=== PATIENT | male | born 1945 | race Caucasian/White ===

== ENCOUNTER 2020-05-13 10:30 | Outpatient (RCR) | payer MEDICARE, SELFPAY ==
--- NOTE | 2020-05-03 07:34 | HP.PTEVAL ---
Patient's Visit Information DURGA FARRELL is a 74 year old M referred to Physical Therapy by MANGO CAMILO with a diagnosis of Lumbar stenosis w/ L2-L5 fusion. Date of Evaluation: 04/21/20 Physical Therapist: Maxi Evans DPT - Visit Plan Frequency: 2x /Week Duration: 6 Weeks Plan: Core stability and strengthening initially in supine. Progression based on s/s into standing core stability exercises and LE strengthening, specifically HS and ankle stengthening. - Subjective Pt presents this date s/p L2-L5 fusion on 03/29/20. Hurt his back last July while shoveling snow. Initially hurt back in 2016 and received injections that helped until last July. Has been trying to walk around the house. Takes oxycodon to manage pain, half at bedtime and half in the morning. Pain seems to worsen the longer he is sitting. Has been walking w/ a walker and has tried a cane but feels that the walker is more stable. has been helping him into bed. Reports hving occasional numbness in L brown area. Is currently wearing an abdominal binder. - Pain low back Pain Intensity (Out of 10): 4 Pain Intensity Range: 1, 8 - Objective POSTURE: Forward trunk. WNL otherwise. PALPATION: WNL. ROM: Low back not tested d/t restrictions. WNL elsewhere. MMT: B knee flex 4-/5, B knee ext 5/5. B ankle 4-/5 in all planes. Hips not tested. Dec core strength/stability. NEURO: Sensation to light touch intact B. DTRs WNL. Myotomes intact. GAIT: Displays forward trunk during ambulation. Pt ambulated w/ walker. Trialed R cane and pt reported no pain or unsteadiness, displayed no notable deviations aside from forward trunk. - Goals Goal 1:: LTG: Pt to be I w/ HEP. Goal Time Frame: 4-6 Weeks Goal 2:: STG: Pt will display inc BLE strength by 1/2 grade. Goal Time Frame: 4-6 Weeks Goal 3:: LTG: Pt will display inc BLE strength by 1 grade. Goal Time Frame: 4-6 Weeks Goal 4:: STG: Pt will be able to safely ambulate community distance w/ R cane. Goal Time Frame: 2-4 Weeks Goal 5:: LTG: Pt will be able to safely ambulate community distance w/out AD. Goal Time Frame: 4-6 Weeks - Rehabilitation Potential Physical Therapy Diagnosis: S/s consistent w/ lumbar stenosis and L2-L5 fusion. Pt reports pain, displays decreased BLE strength, and decreased ability to safely ambulate w/out AD. PT intervention indicated to address stated deficits and increase BLE strength, inc ability to safely ambulate w/out AD, and facilitate a reduction in pain. Rehabilitation Potential: Good - Anticipated Interventions Patient/Client Instruction: Educate patient on: Condition, Plan of Care, Risk Factors, Benefits of Fitness Program For the Purpose of:: To improve safety, To improve self management, To prevent re-injury Therapeutic Exercise to Include: Strength training, Power training, Endurance training, Balance training, Body mechanics, Gait and locomotor training, Dynamic Lumbar Stabilization For the Purpose of:: To decrease pain, To improve muscle performance and motor function, To increase tolerance to activity/condition/position, To improve gait and locomotor functions, To improve endurance, To improve balance, To improve safety with gait Thank you for the opportunity to evaluate your patient. For Medicare and Medicare HMO plans, please review the plan of care and approve it. It will need to be FAXED BACK to us at [phone] for Medicare purposes. For Medicare only, by signing this I certify the plan of care. Please let me know if there are questions or concerns regarding this plan of care. Physician Signature: Date:
--- NOTE | 2020-05-14 09:28 | HP.PTDCSUM ---
It has been my pleasure to treat DURGA FARRELL referred by MANGO CAMILO, with the diagnosis of Lumbar stenosis w/ L2-L5 fusion for a total of 7 visit(s). Discharge Date: 05/13/20 Please see the following information for a summary of their discharge status. Subjective: Pt reports feeling good this date. Returns to doctor in mid-June. Has been walking around much more lately and states it has been going well. Pt. reports being 80% better overall. Pt. reports he is a little conserned about recent uptick in COVID. low back Pain Intensity (Out of 10): 0 % Improvement: 80 Objective/Function: MMT: BLE strength 5/5 throughout. Core strength- fair. Pain: Reports having no pain. Gait: Ambulating community distances w/ SPC. He is able to ambulateNo pain with walking. He is wearing his brace still, but is slowly weaning form it. Normal gait pattern with reciprocal pattern with stair negotiation. No N/T, no pain noted. Goal 1:: LTG: Pt to be I w/ HEP. Goal Progress: Goal Met Goal 2:: STG: Pt will display inc BLE strength by 1/2 grade. Goal Progress: Goal Met Goal 3:: LTG: Pt will display inc BLE strength by 1 grade. Goal Progress: Goal Met Goal 4:: STG: Pt will be able to safely ambulate community distance w/ R cane. Goal Progress: Goal Met Goal 5:: LTG: Pt will be able to safely ambulate community distance w/out AD. Goal Progress: Goal Met Plan: Pt to cont w/ exs at home d/t progression as patient is also nervous about increase in COVID cases. Discharge Comments: Pt progressed well w/ strength and is now reporting no pain w/ activities. States he does not have any issues w/ his HEP and is comfortable continuing his exercises at home due to the increase in COVID cases. If there are questions or concerns regarding this patient's physical therapy, please feel free to call me at [phone]. Thank you for the referral of this patient. Sincerely, Maxi Evans DPT
== END 2020-05-13 11:10 | disposition home or self-care (01) ==
LOC: PT 10:30
DX: M48.061 Spinal stenosis, lumbar region without neurogenic claudication (principal)
CPT/HCPCS: 97110; 97161; 97164

== ENCOUNTER 2020-08-23 17:06 | Outpatient (RCR) | payer MEDICARE, SELFPAY | END 2020-08-23 23:59 | LOC: IMMUN 17:06 | PROVIDERS: PCP Internal Medicine; Visit Provider Family Medicine | DX: Z23 Encounter for immunization (principal) | CPT/HCPCS: 0011A; 0012A ==

== ENCOUNTER 2021-04-29 14:32 | Inpatient (IN) | payer MEDICARE, SELFPAY ==
[2021-04-29 14:39] VITALS: BP 129/73; PULSE 86; RESP 20; TEMP 36.6; O2SAT 90
[2021-04-29 14:41] VITALS: BMI 22.8
--- NOTE | 2021-04-29 15:19 | HP.PCM_ITS ---
HPI - General General Date of Admission: 04/29/21 HPI Narrative DURGA FARRELL, is a 75 Male with below past medical history with followin03/14/2021 Positive covid19, fully vaccinated. 03/19/2021 Presented to [facility] with hypoxia, Pulsox 66% on RA, oxygen 6 liters per nasal cannula, pulsox improved to 85%. 03/19/2021 Admit to [facility] ICU for hypoxia. Pulsox 70's x 3 days, short of breath. Nonrebreather mask at 15 liters, Pulsox improved. CTA chest shows pulmonary embolism, on coumadin for DVT. INR > 8.0. Hold anticoagulation until INR improved, then heparin drip for pulmonary embolism. Decadron, Remdesivir, consult infectious disease for covid19 pneumonia. Trend troponin for elevated troponin. Sequential compression device for DVT prophylaxis. Completed Tocilizumab, remdesivir, decadron. 03/31/2021 Out of isolation. 04/12/2021 Transferred out of ICU. Feeling weak. IVC filter placed, on Eliquis for DVT/PE. Oxygen 8 liters per nasal cannula. 04/29/2021 Admit to TCU with debility, here for rehabilitation, strengthening, prior to discharge home with . [facility] Medical History (Updated 04/29/21 @ 15:[address] Oh Stewart MD) Acute respiratory failure with hypoxia Coronary artery disease Debility Deep vein thrombosis Elevated troponin Gastroesophageal reflux disease Hyperlipidemia Hypertension Lumbar spinal stenosis Peripheral arterial occlusive disease Pneumonia due to COVID-19 virus Pulmonary embolism Home Medications apixaban 5 mg PO BID 04/29/21 [History Last Taken Unknown] calcium carb-D3-mag ox-zinc ox [Freddie Mag Zinc Plus D3] 1 tab PO DAILY 04/29/21 [History Last Taken Unknown] ipratropium-albuterol 3 ml INHALATION TID 04/29/21 [History Last Taken Unknown] metoprolol tartrate 12.5 mg PO BID 04/29/21 [History Last Taken Unknown] nitroglycerin 0.4 mg SUBLINGUAL Q5M PRN 04/29/21 [History Last Taken Unknown] omeprazole 20 mg PO DAILY 04/29/21 [History Last Taken Unknown] polyethylene glycol 3350 [Miralax] 17 g PO BID 04/29/21 [History Last Taken Unknown] rosuvastatin 40 mg PO QHS 04/29/21 [History Last Taken Unknown] sennosides-docusate sodium 1 tab-cap PO DAILY 04/29/21 [History Last Taken Unknown] Surgical History (Updated 04/29/21 @ 16:[address] Oh Stewart MD) History of carotid endarterectomy History of lumbar fusion Hx of CABG S/P femoral-femoral bypass surgery S/P IVC filter [place] teeth extracted Social History (Updated 04/29/21 @ 15:[address] Oh Stewart MD) household members: spouse Smoking Status: Former smoker alcohol intake: current alcohol intake frequency: a few times a week substance use type: does not use ROS Constitutional Constitutional: Denies chills, fever(s) or weight gain ENT HEENT: Denies headache(s), nasal congestion or nasal discharge Cardiovascular Cardiovascular: Denies chest pain or palpitations Respiratory/Chest Respiratory/Chest: Denies cough, excessive phlegm production or shortness of breath with exertion Gastrointestinal Gastrointestinal: Denies abdominal pain, nausea or vomiting Genitourinary Genitourinary: Denies dysuria Musculoskeletal Musculoskeletal: Denies joint pain or joint swelling Integumentary Integumentary: Denies rash or wounds Neurologic Neurologic: Denies focal weakness, numbness or tingling Psychiatric Psychiatric: Denies anxiety, depression, homicidal ideation or suicidal ideation Vital Signs Vital Signs Vital Signs: 04/29/21 14:39 Temperature 97.9 F Temperature Source Temporal Pulse Rate 86 Pulse Rhythm Regular Pulse Strength Normal (2+) Respiratory Rate 20 H Respiratory Effort Normal Non-Labored Respiratory Depth Normal Respiratory Pattern Normal Blood Pressure 129/73 H Blood Pressure Mean 91 Blood Pressure Source Monitor Blood Pressure Position Supine Blood Pressure Location Right Arm Pulse Ox 90 Oxygen Delivery Method Nasal Cannula Oxygen Flow Rate (L/min) 5 Weight Weight: 72.15 kg Body Mass Index (BMI) 22.8 Assessment & Plan Assessment/Plan (1) Debility: (2) Acute respiratory failure with hypoxia: (3) Pneumonia due to COVID-19 virus: (4) Pulmonary embolism: (5) Elevated troponin: PLAN: 75 year old male with below past medical history hospitalized for acute respiratory failure secondary covid19 pneumonia, complicated by pulmonary embolism, supratherapeutic INR requiring IVC filter placement, admitted to TCU with debility, here for rehabilitation, strengthening, prior to discharge home with . * Debility - PT/OT. * Pain - Tylenol 1000mg q6h prn pain (1-10). * Bowel - Miralax 17gm bid, Senna/colace 1 tablet bid, Dulcolax 10mg daily prn. * Adult immunization - Administer prevnar 13, pneumovax 23, fluzone, covid19 vaccine as appropriate. * DVT prophylaxis - Not necessary, on Eliquis. * Calcium deficiency - Calcium D 1 tablet daily. * Shortness of breath - Duoneb 3ml nebulized tid. * Coronary Artery Disease - Metoprolol 12.5mg bid, NTG 0.4mg SL Q5m prn chest pain. * DVT/PE status post IVC filter - Eliquis 5mg twice daily. * GERD - Pantoprazole 20mg daily. * Hyperlipidemia - Rosuvastatin 40mg qhs.
[2021-04-29 16:20] VITALS: O2SAT 89
--- NOTE | 2021-04-29 17:08 | CASEMGMT ---
Social Work Met with patient for initial assessment. Discussed code status. Pt confirmed full code. MOLST form completed, communication to , placed in chart. Explained [employer] insurance with [employer] 05/02 and continued stay is not guaranteed. The goal is for pt to return home with at [facility]. Will discuss possible need for alternative DC plan at care plan meeting with - will determine what can physically assist with at home. SW to continue to follow. Grace Haynes, PRICER DIET THERAPIST
[2021-04-29] MEDS: APIXABAN 5 MG TABLET PO (23:13)
[2021-04-29] MEDS: Polyethylene Glycol 3350 17 GM PACKET PO (23:13)
[2021-04-29] MEDS: ROSUVASTATIN CALCIUM 40 MG TABLET PO (23:14)
[2021-04-29] MEDS: Senna/Docusate Sodium 1 Tablet PO (23:14)
[2021-04-29 23:17] VITALS: BP 121/70; PULSE 96
[2021-04-29] MEDS: Metoprolol Tartrate 25 MG Tablet 12.5 MG PO (23:17)
[2021-04-30 05:00] VITALS: BP 118/70; RESP 18; O2SAT 96
[2021-04-30] MEDS: Polyethylene Glycol 3350 17 GM PACKET PO ×2 (06:31→17:12)
[2021-04-30 06:32] VITALS: BP 118/70; PULSE 93
[2021-04-30] MEDS: Metoprolol Tartrate 25 MG Tablet 12.5 MG PO ×2 (06:32→17:12)
[2021-04-30] MEDS: APIXABAN 5 MG TABLET PO ×2 (06:32→17:12)
[2021-04-30] MEDS: Senna/Docusate Sodium 1 Tablet PO (06:33)
[2021-04-30] MEDS: Pantoprazole Sodium 20 MG Tablet PO (06:33)
[2021-04-30 06:47] VITALS: PULSE 70; RESP 20; O2SAT 93
[2021-04-30] MEDS: Ipratropium/Albuterol Sulfate 3 ML AMPUL.NEB INHALATION ×2 (06:47→12:30)
[2021-04-30] MEDS: Multivitamins,Ther W-Minerals Tablet 1 TABLET PO (09:33)
[2021-04-30] MEDS: Tuberculin,Purif.prot.deriv. 50 TU/ML Vial 0.1 ML ID (11:35)
[2021-04-30 12:30] VITALS: PULSE 105; RESP 19
[2021-04-30 14:58] VITALS: BP 111/69; PULSE 113; RESP 24; TEMP 36.9; O2SAT 93
[2021-04-30 17:12] VITALS: PULSE 110
[2021-04-30] MEDS: ROSUVASTATIN CALCIUM 40 MG TABLET PO (21:29)
[2021-05-01] VITALS (8 sets, daily range): BP systolic 102–112; BP diastolic 71–72; PULSE 86–101; RESP 17–24; TEMP 36.6–37.1; O2SAT 92–94
[2021-05-01 05:06] LABS: Absolute Lymphocyte Count 4.54 X10^3/uL (0.83-4.51); Absolute Neutrophil Count 7.4 X10^3/uL (2.0-7.7); Basophil# 0.05 X10^3/uL; Basophil% 0.3 % (0-1); Eosinophil# 1.08 X10^3/uL; Eosinophils% 7.5 % (0-5); Hematocrit 31.6 % (40-54); Hemoglobin 9.5 g/dL (13.0-16.5); Lymphocyte # 4.54 X10^3/ul (0.83-4.51); Lymphocyte % 31.7 % (19-41); Mean Corp Hgb Conc 30.1 g/dL (32-36); Mean Corpuscular Hgb 23.8 pg (27.0-32.0); Mean Platelet Vol. 9.7 fl (6.2-12.0); Monocyte# 1.26 X10^3/uL; Monocyte% 8.8 % (0-10); NRBC Flagged by Analyzer 0 % (0-5); Neutrophil # 7.36 X10^3/uL (2.7-7.7); Neutrophil % 51.4 % (47-70); POSITIVE MORPHOLOGY YES; Platelet Count 368 K/mm3 (150-450); RBC Distribution Width SD 62.8 fl (35.1-43.9); White Blood Count 14.3 K/mm3 (4.4-11.0)
[2021-05-01 05:13] LABS: Differential Indicated SCAN CRITERIA MET
[2021-05-01 05:21] LABS: Anion Gap 7 (5-15); BUN 12 mg/dL (7-18); BUN/Creat Ratio 16.9 RATIO (10-20); Calcium,Total 8.4 mg/dL (8.5-10.1); Chloride 100 mmol/L (98-107); Creatinine, Serum 0.71 mg/dL (0.70-1.30); EST Glomerular Filtration Rate 114 mL/min (>60); Est Glom Filt Rate - Afr Amer 138 mL/min (>60); Estimated Creatinine Clearance 63.13 ml/min; Glucose 99 mg/dL (74-106); Potassium 3.8 mmol/L (3.5-5.1); Sodium Level 136 mmol/L (136-145)
[2021-05-01 05:33] LABS: Polychromasia 1+
[2021-05-01 05:34] LABS: Macrocytosis 1+
[2021-05-01 05:41] LABS: Anisocytosis 3+; Microcytosis 2+; Schistocytes 1+
[2021-05-01] MEDS: Polyethylene Glycol 3350 17 GM PACKET PO ×2 (05:42→17:42)
[2021-05-01] MEDS: Metoprolol Tartrate 25 MG Tablet 12.5 MG PO ×2 (05:42→17:43)
[2021-05-01] MEDS: APIXABAN 5 MG TABLET PO ×2 (05:42→17:42)
[2021-05-01] MEDS: Senna/Docusate Sodium 1 Tablet PO ×2 (05:42→17:42)
[2021-05-01] MEDS: Pantoprazole Sodium 20 MG Tablet PO (05:42)
[2021-05-01] MEDS: Ipratropium/Albuterol Sulfate 3 ML AMPUL.NEB INHALATION ×3 (06:36→18:30)
[2021-05-01] MEDS: Multivitamins,Ther W-Minerals Tablet 1 TABLET PO (08:26)
[2021-05-01] MEDS: ROSUVASTATIN CALCIUM 40 MG TABLET PO (20:59)
[2021-05-02] VITALS (7 sets, daily range): BP systolic 108–125; BP diastolic 73–79; PULSE 76–99; RESP 16–28; TEMP 36.4–37; O2SAT 92–99
[2021-05-02] MEDS: Metoprolol Tartrate 25 MG Tablet 12.5 MG PO ×2 (06:05→16:30)
[2021-05-02] MEDS: APIXABAN 5 MG TABLET PO ×2 (06:05→16:29)
[2021-05-02] MEDS: Senna/Docusate Sodium 1 Tablet PO ×2 (06:05→16:33)
[2021-05-02] MEDS: Pantoprazole Sodium 20 MG Tablet PO (06:05)
[2021-05-02] MEDS: Polyethylene Glycol 3350 17 GM PACKET PO (06:05)
[2021-05-02] MEDS: Ipratropium/Albuterol Sulfate 3 ML AMPUL.NEB INHALATION ×3 (06:50→18:33)
[2021-05-02] MEDS: Multivitamins,Ther W-Minerals Tablet 1 TABLET PO (08:28)
--- NOTE | 2021-05-02 12:22 | PCM.PN.RX ---
Progress Note - Pharmacy Subjective: TCU Admission Objective: Allergies atorvastatin Adverse Reaction (Verified 04/29/21 16:40) Other Current Medications Generic Name Dose Route Start Last Admin Trade Name Freq PRN Reason Stop Dose Admin Acetaminophen 1,000 mg 04/29/21 15:43 Acetaminophen 500 Mg Tablet PO Q6H PRN PRN Pain Score 1-10 Albuterol/Ipratropium 3 ml 04/29/21 22:00 05/02/21 06:50 Ipratropium/Albuterol Sulfate 3 Ml Ampul.Neb INHALATION 3 ml TID.RT VIOLET Administration Apixaban 5 mg 04/29/21 18:00 05/02/21 06:05 Apixaban 5 Mg Tablet PO 5 mg BID VIOLET Administration Bisacodyl 10 mg 04/29/21 15:43 Bisacodyl 5 Mg Tablet PO DAILY PRN Constipation Calamine/Phenol 1 applic 05/02/21 18:00 Menthol/Lanolin/Calamine/Znox 113 Gm Tube TOPICAL BID [facility] Protocol Metoprolol Tartrate 12.5 mg 04/29/21 18:00 05/02/21 06:05 Metoprolol Tartrate 25 Mg Tablet PO 12.5 mg BID VIOLET Administration Multivitamins/Minerals 1 tablet 04/30/21 08:00 05/02/21 08:28 Multivitamins,Ther W-Minerals Tablet PO 1 tablet BREAKFAST VIOLET Administration Nitroglycerin 0.4 mg 04/29/21 16:48 Nitroglycerin (Inpatient Use) 0.4 Mg Tab.Subl SL Q5M PRN CARDIAC/CHEST PAIN Pantoprazole Sodium 20 mg 04/30/21 06:00 05/02/21 06:05 Pantoprazole Sodium 20 Mg Tablet PO 20 mg DAILY VIOLET Administration Polyethylene Glycol 17 gm 04/29/21 18:00 05/02/21 06:05 Polyethylene Glycol 3350 17 Gm Packet PO 17 gm BID VIOLET Administration Rosuvastatin Calcium 40 mg 04/29/21 22:00 05/01/21 20:59 Rosuvastatin Calcium 40 Mg Tablet PO 40 mg QHS VIOLET Administration Senna/Docusate Sodium 1 tablet 04/29/21 18:00 05/02/21 06:05 Senna/Docusate Sodium 1 Tablet PO 1 tablet BID VIOLET Administration Tuberculin PPD 0.1 ml 05/07/21 10:00 Tuberculin,Purif.Prot.Deriv. 50 Tu/Ml Vial ID 05/07/21 10:01 X1 ONE Problem List (This Medical Record has been edited. Action required.) Elevated troponin (Acute) Pulmonary embolism (Acute) Pneumonia due to COVID-19 virus (Acute) Acute respiratory failure with hypoxia (Acute) Debility (Acute) Vital Signs Temp Pulse Resp BP Pulse Ox 98.6 F 76 28 H 108/79 94 05/02/21 05:00 05/02/21 06:50 05/02/21 06:50 05/02/21 06:05 05/02/21 06:50 Oxygen Flow Rate (L/min) 6 Oxygen Delivery Method Nasal Cannula Weight: 72.15 kg Body Mass Index (BMI) 22.8 Sodium 136 mmol/L (136-145) 05/01/21 04:50 Potassium 3.8 mmol/L (3.5-5.1) 05/01/21 04:50 Chloride 100 mmol/L (98-107) 05/01/21 04:50 Carbon Dioxide 29.0 mmol/L (21.0-32.0) 05/01/21 04:50 Anion Gap 7 (5-15) 05/01/21 04:50 BUN 12 mg/dL (7-18) 05/01/21 04:50 Creatinine 0.71 mg/dL (0.70-1.30) 05/01/21 04:50 Est GFR (MDRD) Af Amer 138 mL/min (>60) 05/01/21 04:50 Est GFR (MDRD) Non-Af 114 mL/min (>60) 05/01/21 04:50 BUN/Creatinine Ratio 16.9 RATIO (10-20) 05/01/21 04:50 Glucose 99 mg/dL (74-106) 05/01/21 04:50 Assessment/Plan: 1. Pain: acetaminophen 1000mg PO Q6H PRN pain 1-10. Please continue to monitor for increased pain and PRN usage. 2. CAD: metoprolol tartrate 12.5mg PO BID and nitroglycerin 0.4mg SL Q5M PRN cardiac/chest pain. Please continue to monitor BP (last 108/79), HR (last 76) and for chest pain. 3. DVT/PE s/p IVC filter: apixaban 5mg PO BID. Please continue to monitor hemoglobin (last 9.5g/dL) and S/S of bleeding. 4. Shortness of breath: ipratropium/albuterol 3mL inhalation TID.RT. Please continue to monitor for shortness of breath. 5. GERD: pantoprazole 20mg PO daily. Please continue to monitor for S/S of GERD and diarrhea. *6. Hyperlipidemia: rosuvastatin 40mg PO QHS. Please consider ordering a lipid panel if clinically appropriate. Patient does not have one in the chart. Thanks. Please continue to monitor for muscle pain. 7. Overall nutrition: multivitamin with minerals 1T PO breakfast. Please continue to monitor. Psychotropic Medications: None Unnecessary Medications: None Bowel Regimen: Miralax 17gm PO BID, senna/docusate 1T PO BID and bisacodyl 10mg PO daily PRN constipation. Please continue to monitor for constipation and PRN usage. Date of Note:: 05/02/21
[2021-05-02] MEDS: Menthol/Lanolin/Calamine/Znox 113 GM Tube 1 APPLIC TOPICAL (16:28)
[2021-05-02] MEDS: ROSUVASTATIN CALCIUM 40 MG TABLET PO (21:41)
[2021-05-03] VITALS (8 sets, daily range): BP systolic 112–114; BP diastolic 72–75; PULSE 85–104; RESP 16–20; TEMP 36.5–36.7; O2SAT 91–96
[2021-05-03] MEDS: Menthol/Lanolin/Calamine/Znox 113 GM Tube 1 APPLIC TOPICAL ×2 (06:09→17:14)
[2021-05-03] MEDS: Metoprolol Tartrate 25 MG Tablet 12.5 MG PO ×2 (06:10→17:12)
[2021-05-03] MEDS: Pantoprazole Sodium 20 MG Tablet PO (06:10)
[2021-05-03] MEDS: APIXABAN 5 MG TABLET PO ×2 (06:10→17:13)
[2021-05-03] MEDS: Multivitamins,Ther W-Minerals Tablet 1 TABLET PO (08:49)
[2021-05-03] MEDS: Ipratropium/Albuterol Sulfate 3 ML AMPUL.NEB INHALATION ×3 (09:05→19:15)
[2021-05-03] MEDS: ROSUVASTATIN CALCIUM 40 MG TABLET PO (22:12)
[2021-05-04] VITALS (7 sets, daily range): BP systolic 102–106; BP diastolic 67; PULSE 80–94; RESP 18–24; TEMP 36.6; O2SAT 92–95
[2021-05-04] MEDS: Polyethylene Glycol 3350 17 GM PACKET PO (05:17)
[2021-05-04] MEDS: Menthol/Lanolin/Calamine/Znox 113 GM Tube 1 APPLIC TOPICAL ×2 (05:18→17:27)
[2021-05-04] MEDS: APIXABAN 5 MG TABLET PO ×2 (05:19→17:18)
[2021-05-04] MEDS: Senna/Docusate Sodium 1 Tablet PO ×2 (05:19→17:20)
[2021-05-04] MEDS: Pantoprazole Sodium 20 MG Tablet PO (05:19)
[2021-05-04] MEDS: Metoprolol Tartrate 25 MG Tablet 12.5 MG PO ×2 (05:19→17:18)
[2021-05-04] MEDS: Ipratropium/Albuterol Sulfate 3 ML AMPUL.NEB INHALATION ×2 (06:50→19:50)
[2021-05-04] MEDS: Multivitamins,Ther W-Minerals Tablet 1 TABLET PO (08:18)
--- NOTE | 2021-05-04 10:35 | CASEMGMT ---
Social Work IDT met with patient and for care plan meeting. Discussed patient's progress in therapy and nursing. Explained [employer] insurance with [employer]D 05/06 and continued stay is not guaranteed. The goal is for pt to return home with at [facility]. Pt is new on O2, BP drops, difficulty tolerating activity. Dr. ackerman. Broached topic of possibly needing alternative plan prior to DC home if insurance does not allow enough time for safe DC home. Encouraged for pt and to brainstorm alternative options - broached SNF topic and financial liability. Provided SW contact information to notify this worker in a few days of plan. Pt and noticed pt cognition not as clear. ST order placed. Will continue to follow. Grace Haynes, POWDER COMPOUNDER SHANK THREADER
[2021-05-04] MEDS: 0.9% Normal Saline 1,000 ML 75 ML IV (18:48)
[2021-05-04] MEDS: ROSUVASTATIN CALCIUM 40 MG TABLET PO (21:10)
[2021-05-05 04:50] VITALS: BP 102/60; PULSE 87
[2021-05-05] MEDS: Menthol/Lanolin/Calamine/Znox 113 GM Tube 1 APPLIC TOPICAL ×2 (04:51→17:12)
[2021-05-05] MEDS: Pantoprazole Sodium 20 MG Tablet PO (04:51)
[2021-05-05] MEDS: APIXABAN 5 MG TABLET PO ×2 (04:51→17:12)
[2021-05-05] MEDS: Senna/Docusate Sodium 1 Tablet PO ×2 (04:51→17:12)
[2021-05-05 07:10] VITALS: PULSE 93; RESP 20; O2SAT 95
[2021-05-05] MEDS: Ipratropium/Albuterol Sulfate 3 ML AMPUL.NEB INHALATION (07:10)
[2021-05-05] MEDS: 0.9% Normal Saline 1,000 ML 75 ML IV ×2 (08:05→22:47)
[2021-05-05 12:55] VITALS: PULSE 87; RESP 20; O2SAT 96
--- NOTE | 2021-05-05 14:16 | MDS.RN ---
Completed pain interview for MADAY 05/06/21.
--- NOTE | 2021-05-05 15:02 | CHAPLAIN ---
Type of Pastoral Visit _x__ Initial Visit ___ Follow-up Visit ___ On-call Visit ___ General Patient Visit ___ Spiritual Assessment ___ Family Conference ___ Bereavement ___ Rapid Response ___ Code Blue ___ Other (describe below) Pastoral Care Referral From _x__ Patient ___ Family ___ Nurse ___ Physician ___ Gusset Edger ___ Marketing Mgr ___ Other (describe below) Sacrament/Intervention _x__ Active listening ___ Anointing ___ Episcopalian ___ Bereavement ___ Communion _x__ Loraine exploration ___ _x__ Life review _x__ Prayer ___ Reconciliation ___ Sacrament of Sick _x__ Supportive presence ___ Wedding ___ Other (describe below) Pastoral Comments patient is a and 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
[2021-05-05 15:34] VITALS: BP 116/73; PULSE 87; RESP 20; TEMP 36.6; O2SAT 96
[2021-05-05] MEDS: ROSUVASTATIN CALCIUM 40 MG TABLET PO (19:43)
[2021-05-05 20:15] VITALS: PULSE 95; RESP 18
[2021-05-06 06:00] VITALS: BP 119/71; PULSE 85; TEMP 36.9
[2021-05-06] MEDS: APIXABAN 5 MG TABLET PO ×2 (06:03→16:34)
[2021-05-06] MEDS: Senna/Docusate Sodium 1 Tablet PO ×2 (06:03→16:34)
[2021-05-06] MEDS: Pantoprazole Sodium 20 MG Tablet PO (06:03)
[2021-05-06] MEDS: Menthol/Lanolin/Calamine/Znox 113 GM Tube 1 APPLIC TOPICAL ×2 (06:03→16:34)
[2021-05-06 07:47] VITALS: PULSE 80; RESP 18; O2SAT 98
[2021-05-06] MEDS: Ipratropium/Albuterol Sulfate 3 ML AMPUL.NEB INHALATION ×2 (07:47→18:37)
[2021-05-06] MEDS: 0.9% Normal Saline 1,000 ML 75 ML IV (12:57)
[2021-05-06 15:08] VITALS: BP 107/68; PULSE 90; RESP 20; TEMP 36.8; O2SAT 95
[2021-05-06 18:37] VITALS: PULSE 98; RESP 20
[2021-05-06 20:00] VITALS: PULSE 98; RESP 16; O2SAT 94
[2021-05-06] MEDS: ROSUVASTATIN CALCIUM 40 MG TABLET PO (20:02)
[2021-05-07] VITALS (7 sets, daily range): BP systolic 106–121; BP diastolic 68–71; PULSE 76–96; RESP 16–22; TEMP 36.7; O2SAT 94–97
[2021-05-07] MEDS: 0.9% Normal Saline 1,000 ML 75 ML IV ×2 (02:22→15:32)
[2021-05-07] MEDS: Pantoprazole Sodium 20 MG Tablet PO (05:59)
[2021-05-07] MEDS: Polyethylene Glycol 3350 17 GM PACKET PO (05:59)
[2021-05-07] MEDS: Menthol/Lanolin/Calamine/Znox 113 GM Tube 1 APPLIC TOPICAL ×2 (05:59→17:35)
[2021-05-07] MEDS: Senna/Docusate Sodium 1 Tablet PO ×2 (05:59→17:36)
[2021-05-07] MEDS: APIXABAN 5 MG TABLET PO ×2 (05:59→17:36)
[2021-05-07] MEDS: Ipratropium/Albuterol Sulfate 3 ML AMPUL.NEB INHALATION ×3 (07:00→19:20)
[2021-05-07] MEDS: Tuberculin,Purif.prot.deriv. 50 TU/ML Vial 0.1 ML ID (11:17)
[2021-05-07] MEDS: ROSUVASTATIN CALCIUM 40 MG TABLET PO (21:12)
[2021-05-08 04:20] LABS: Absolute Lymphocyte Count 3.83 X10^3/uL (0.83-4.51); Absolute Neutrophil Count 5.5 X10^3/uL (2.0-7.7); Basophil# 0.06 X10^3/uL; Basophil% 0.5 % (0-1); Eosinophil# 0.82 X10^3/uL; Eosinophils% 7.4 % (0-5); Hematocrit 26.1 % (40-54); Hemoglobin 7.7 g/dL (13.0-16.5); Lymphocyte # 3.83 X10^3/ul (0.83-4.51); Lymphocyte % 34.7 % (19-41); Mean Corp Hgb Conc 29.5 g/dL (32-36); Mean Corpuscular Hgb 23.5 pg (27.0-32.0); Mean Corpuscular Volume 79.6 fL (80-94); Mean Platelet Vol. 9.4 fl (6.2-12.0); Monocyte# 0.82 X10^3/uL; Monocyte% 7.4 % (0-10); NRBC Flagged by Analyzer 0 % (0-5); Neutrophil # 5.48 X10^3/uL (2.7-7.7); Neutrophil % 49.7 % (47-70); POSITIVE MORPHOLOGY YES; Platelet Count 274 K/mm3 (150-450); RBC Distribution Width CV 21.6 % (11.6-14.6); RBC Distribution Width SD 63.7 fl (35.1-43.9); Red Blood Count 3.28 M/mm3 (4.6-6.2)
[2021-05-08 04:22] LABS: Differential Indicated SCAN CRITERIA MET
[2021-05-08 04:32] LABS: Anion Gap 4 (5-15); BUN 11 mg/dL (7-18); BUN/Creat Ratio 21.7 RATIO (10-20); Calcium,Total 7.8 mg/dL (8.5-10.1); Chloride 111 mmol/L (98-107); Creatinine, Serum 0.51 mg/dL (0.70-1.30); EST Glomerular Filtration Rate 168 mL/min (>60); Est Glom Filt Rate - Afr Amer 204 mL/min (>60); Estimated Creatinine Clearance 63.13 ml/min; Glucose 99 mg/dL (74-106); Potassium 3.8 mmol/L (3.5-5.1); Sodium Level 141 mmol/L (136-145)
[2021-05-08] MEDS: Menthol/Lanolin/Calamine/Znox 113 GM Tube 1 APPLIC TOPICAL ×2 (04:58→16:57)
[2021-05-08] MEDS: 0.9% Normal Saline 1,000 ML 75 ML IV ×2 (04:58→18:20)
[2021-05-08] MEDS: Senna/Docusate Sodium 1 Tablet PO ×3 (04:59→16:56)
[2021-05-08] MEDS: Pantoprazole Sodium 20 MG Tablet PO (05:00)
[2021-05-08] MEDS: APIXABAN 5 MG TABLET PO ×2 (05:00→16:57)
[2021-05-08 05:06] VITALS: BP 122/69; PULSE 78; RESP 20; TEMP 35.8; O2SAT 98
[2021-05-08 05:09] LABS: Anisocytosis 1+; Differential Comment SCANNED; Microcytosis 1+; Schistocytes RARE
[2021-05-08] MEDS: Ipratropium/Albuterol Sulfate 3 ML AMPUL.NEB INHALATION ×3 (08:12→19:30)
--- NOTE | 2021-05-08 09:36 | NURSING ---
Addendum entered by Rosa Mendez 05/08/21 15:48: consent obtained Original Note: dr bobby aware of hgb, new order for blood tx 2 units and recheck h/h 05/10/21. transfuse blood 05/09/21. faxed labs and order to infusion center.
[2021-05-08 13:35] VITALS: PULSE 73; RESP 16; O2SAT 98
[2021-05-08 15:07] VITALS: BP 103/60; PULSE 96; RESP 18; TEMP 37; O2SAT 95
[2021-05-08 19:30] VITALS: PULSE 75; RESP 16; O2SAT 96
[2021-05-08] MEDS: ROSUVASTATIN CALCIUM 40 MG TABLET PO (22:44)
[2021-05-08] MEDS: Acetaminophen 500 MG Tablet 1000 MG PO (22:49)
[2021-05-09] MEDS: APIXABAN 5 MG TABLET PO ×2 (06:07→16:26)
[2021-05-09] MEDS: Pantoprazole Sodium 20 MG Tablet PO (06:07)
[2021-05-09] MEDS: Menthol/Lanolin/Calamine/Znox 113 GM Tube 1 APPLIC TOPICAL ×2 (06:08→16:26)
[2021-05-09 07:05] VITALS: PULSE 74; RESP 22; O2SAT 98
[2021-05-09] MEDS: Ipratropium/Albuterol Sulfate 3 ML AMPUL.NEB INHALATION ×2 (07:05→19:05)
--- NOTE | 2021-05-09 08:03 | NURSING ---
[facility] CALLED, OK TO SEND PT DOWN IN BED AFTER DONE EATING [id number]
[2021-05-09 15:19] VITALS: BP 134/72; PULSE 84; RESP 18; TEMP 37.2; O2SAT 18
[2021-05-09] MEDS: Senna/Docusate Sodium 1 Tablet PO (16:26)
[2021-05-09 19:06] VITALS: PULSE 79; RESP 18
[2021-05-09] MEDS: ROSUVASTATIN CALCIUM 40 MG TABLET PO (19:59)
[2021-05-09 20:00] VITALS: O2SAT 97
[2021-05-10 05:48] LABS: Hematocrit 34.8 % (40-54); Hemoglobin 10.7 g/dL (13.0-16.5)
[2021-05-10] MEDS: APIXABAN 5 MG TABLET PO ×2 (05:48→16:54)
[2021-05-10] MEDS: Pantoprazole Sodium 20 MG Tablet PO (05:48)
[2021-05-10] MEDS: Menthol/Lanolin/Calamine/Znox 113 GM Tube 1 APPLIC TOPICAL ×2 (05:48→16:54)
[2021-05-10] MEDS: Senna/Docusate Sodium 1 Tablet PO (05:48)
[2021-05-10 05:50] VITALS: BP 125/75; PULSE 78
[2021-05-10 14:51] VITALS: BP 121/73; PULSE 92; RESP 18; TEMP 36.6; O2SAT 96
[2021-05-10 19:50] VITALS: PULSE 83; RESP 16
[2021-05-10] MEDS: Ipratropium/Albuterol Sulfate 3 ML AMPUL.NEB INHALATION (19:50)
[2021-05-10 20:25] VITALS: O2SAT 95
[2021-05-10] MEDS: ROSUVASTATIN CALCIUM 40 MG TABLET PO (20:32)
[2021-05-11] MEDS: Acetaminophen 500 MG Tablet 1000 MG PO (00:14)
--- NOTE | 2021-05-11 03:46 | NURSING ---
Addendum entered by Celine Lucero 05/11/21 04:05: Resp here, breathing treatment given, pt states he feels better now. HOB remains elevated. Original Note: Pt called out, stating he feels like he's not getting enough oxygen, pox 95% on 5L. Noted that humidity bottle empty, new one placed and pt POX does drop to 89% while switching O2, but comes back up quickly. Lungs assessed, crackles throughout, pulled up in bed and HOB elevated, pt requesting aerosol, resp called to assess patient and administer, will continue to monitor.
[2021-05-11] MEDS: APIXABAN 5 MG TABLET PO ×2 (04:17→17:09)
[2021-05-11] MEDS: Pantoprazole Sodium 20 MG Tablet PO (04:17)
[2021-05-11] MEDS: Senna/Docusate Sodium 1 Tablet PO ×2 (04:17→17:09)
[2021-05-11] MEDS: Polyethylene Glycol 3350 17 GM PACKET PO (04:17)
[2021-05-11] MEDS: Menthol/Lanolin/Calamine/Znox 113 GM Tube 1 APPLIC TOPICAL ×2 (04:20→17:09)
[2021-05-11 04:21] VITALS: BP 113/79; PULSE 82
[2021-05-11 12:58] VITALS: PULSE 92; RESP 18; O2SAT 99
[2021-05-11] MEDS: Ipratropium/Albuterol Sulfate 3 ML AMPUL.NEB INHALATION ×2 (12:58→19:09)
[2021-05-11 16:22] VITALS: BP 113/75; PULSE 95; RESP 20; TEMP 36.5; O2SAT 93
[2021-05-11 19:09] VITALS: PULSE 94; RESP 20; O2SAT 93
[2021-05-11 20:00] VITALS: PULSE 100; RESP 18; O2SAT 95
[2021-05-11] MEDS: ROSUVASTATIN CALCIUM 40 MG TABLET PO (20:38)
[2021-05-12] MEDS: Pantoprazole Sodium 20 MG Tablet PO (05:56)
[2021-05-12] MEDS: APIXABAN 5 MG TABLET PO ×2 (05:56→16:32)
[2021-05-12] MEDS: Polyethylene Glycol 3350 17 GM PACKET PO (05:56)
[2021-05-12] MEDS: Senna/Docusate Sodium 1 Tablet PO ×2 (05:57→16:32)
[2021-05-12] MEDS: Menthol/Lanolin/Calamine/Znox 113 GM Tube 1 APPLIC TOPICAL ×2 (06:00→16:33)
[2021-05-12] MEDS: 0.9% Saline Lock 10 ML Syringe IV ×2 (06:02→13:11)
[2021-05-12 07:38] VITALS: PULSE 93; RESP 22; O2SAT 95
[2021-05-12] MEDS: Ipratropium/Albuterol Sulfate 3 ML AMPUL.NEB INHALATION ×2 (07:38→19:20)
--- NOTE | 2021-05-12 07:55 | MDS.RN ---
Information for the mds was obtained from review of the clinical record, interview of resident, staff, and direct observation of resident's care.
[2021-05-12 12:20] VITALS: O2SAT 88
[2021-05-12 15:53] VITALS: BP 121/73; PULSE 95; RESP 26; TEMP 37.2; O2SAT 93
[2021-05-12 19:20] VITALS: PULSE 91; RESP 22
[2021-05-12] MEDS: ROSUVASTATIN CALCIUM 40 MG TABLET PO (20:39)
[2021-05-13] MEDS: APIXABAN 5 MG TABLET PO ×2 (05:01→17:22)
[2021-05-13] MEDS: Menthol/Lanolin/Calamine/Znox 113 GM Tube 1 APPLIC TOPICAL ×2 (05:01→17:22)
[2021-05-13] MEDS: Pantoprazole Sodium 20 MG Tablet PO (05:01)
[2021-05-13] MEDS: Polyethylene Glycol 3350 17 GM PACKET PO (05:01)
[2021-05-13] MEDS: Senna/Docusate Sodium 1 Tablet PO ×2 (05:01→17:23)
[2021-05-13 07:20] VITALS: PULSE 90; RESP 18; O2SAT 94
[2021-05-13] MEDS: Ipratropium/Albuterol Sulfate 3 ML AMPUL.NEB INHALATION ×3 (07:20→19:09)
[2021-05-13 14:12] VITALS: BP 114/68; PULSE 94; RESP 18; TEMP 36.7; O2SAT 97
[2021-05-13 15:05] VITALS: O2SAT 94
[2021-05-13 19:09] VITALS: PULSE 99; RESP 24
[2021-05-13] MEDS: ROSUVASTATIN CALCIUM 40 MG TABLET PO (20:09)
[2021-05-13 22:00] VITALS: PULSE 86; RESP 12; O2SAT 96
[2021-05-14] MEDS: Senna/Docusate Sodium 1 Tablet PO ×2 (05:14→17:06)
[2021-05-14] MEDS: Polyethylene Glycol 3350 17 GM PACKET PO (05:14)
[2021-05-14] MEDS: APIXABAN 5 MG TABLET PO ×2 (05:14→17:06)
[2021-05-14] MEDS: Menthol/Lanolin/Calamine/Znox 113 GM Tube 1 APPLIC TOPICAL ×2 (05:14→17:06)
[2021-05-14] MEDS: Pantoprazole Sodium 20 MG Tablet PO (05:14)
[2021-05-14 07:00] VITALS: PULSE 84; RESP 18; O2SAT 92
[2021-05-14] MEDS: Ipratropium/Albuterol Sulfate 3 ML AMPUL.NEB INHALATION ×2 (07:00→18:46)
--- NOTE | 2021-05-14 07:01 | CPS ---
PATIENT RECIEVED AEROSOL TREATMENT WITH EPAP SET AT 5 MH20.
[2021-05-14 09:49] VITALS: O2SAT 99
[2021-05-14 12:19] VITALS: PULSE 79; RESP 16; O2SAT 98
[2021-05-14 14:43] VITALS: BP 138/79; PULSE 79; RESP 18; TEMP 36.6; O2SAT 98
[2021-05-14 15:00] VITALS: O2SAT 85
[2021-05-14 18:46] VITALS: PULSE 104; RESP 18; O2SAT 94
[2021-05-14] MEDS: ROSUVASTATIN CALCIUM 40 MG TABLET PO (20:34)
--- NOTE | 2021-05-15 00:15 | NURSING ---
Pt calls this nurse back concerns w/ O2 levels. SpO2 ranges between 95-97% on 6 lpm via nc. Skin pink and without dusky or cyanotic discoloration throughout conversation. Pt experiencing difficulty expressing thoughts completely. Suggested multiple times he speak w/ respiratory therapy to determine the most appropriate liter flow at rest and with activity.
[2021-05-15] MEDS: Acetaminophen 500 MG Tablet 1000 MG PO ×2 (00:43→23:05)
[2021-05-15 04:51] LABS: Absolute Lymphocyte Count 3.93 X10^3/uL (0.83-4.51); Absolute Neutrophil Count 4.6 X10^3/uL (2.0-7.7); Basophil# 0.04 X10^3/uL; Basophil% 0.4 % (0-1); Eosinophil# 0.63 X10^3/uL; Eosinophils% 6.2 % (0-5); Hematocrit 34.2 % (40-54); Hemoglobin 10.2 g/dL (13.0-16.5); Lymphocyte # 3.93 X10^3/ul (0.83-4.51); Lymphocyte % 38.8 % (19-41); Mean Corp Hgb Conc 29.8 g/dL (32-36); Mean Corpuscular Hgb 24.4 pg (27.0-32.0); Mean Corpuscular Volume 81.8 fL (80-94); Mean Platelet Vol. 10.1 fl (6.2-12.0); Monocyte# 0.87 X10^3/uL; Monocyte% 8.6 % (0-10); NRBC Flagged by Analyzer 0 % (0-5); Neutrophil # 4.64 X10^3/uL (2.7-7.7); Neutrophil % 45.8 % (47-70); POSITIVE MORPHOLOGY YES; Platelet Count 253 K/mm3 (150-450); RBC Distribution Width CV 21.9 % (11.6-14.6); Red Blood Count 4.18 M/mm3 (4.6-6.2); White Blood Count 10.1 K/mm3 (4.4-11.0)
[2021-05-15 05:05] LABS: Differential Indicated SCAN CRITERIA MET
[2021-05-15 05:17] LABS: Anion Gap 4 (5-15); BUN 14 mg/dL (7-18); BUN/Creat Ratio 23.5 RATIO (10-20); Calcium,Total 7.8 mg/dL (8.5-10.1); Chloride 106 mmol/L (98-107); EST Glomerular Filtration Rate 139 mL/min (>60); Est Glom Filt Rate - Afr Amer 169 mL/min (>60); Estimated Creatinine Clearance 63.88 ml/min; Glucose 90 mg/dL (74-106); Potassium 3.8 mmol/L (3.5-5.1); Sodium Level 140 mmol/L (136-145)
[2021-05-15 05:33] LABS: Bite Cell RARE; Ovalocyte 1+; Poikilocytosis 1+; Target Cells 1+; Tear Drop Cell RARE
[2021-05-15 05:34] LABS: Anisocytosis 2+
[2021-05-15] MEDS: APIXABAN 5 MG TABLET PO ×2 (06:03→16:51)
[2021-05-15] MEDS: Pantoprazole Sodium 20 MG Tablet PO (06:03)
[2021-05-15] MEDS: Polyethylene Glycol 3350 17 GM PACKET PO (06:04)
[2021-05-15] MEDS: Senna/Docusate Sodium 1 Tablet PO ×2 (06:04→16:51)
[2021-05-15] MEDS: Menthol/Lanolin/Calamine/Znox 113 GM Tube 1 APPLIC TOPICAL ×2 (06:06→16:51)
[2021-05-15 06:40] VITALS: PULSE 79; RESP 18; O2SAT 93
[2021-05-15] MEDS: Ipratropium/Albuterol Sulfate 3 ML AMPUL.NEB INHALATION ×3 (06:40→19:06)
[2021-05-15 13:33] VITALS: PULSE 81; RESP 22; O2SAT 99
[2021-05-15 15:51] VITALS: BP 112/70; PULSE 90; RESP 20; TEMP 37.1; O2SAT 97
[2021-05-15 19:07] VITALS: PULSE 84; RESP 18
[2021-05-15] MEDS: ROSUVASTATIN CALCIUM 40 MG TABLET PO (23:04)
[2021-05-16] MEDS: Senna/Docusate Sodium 1 Tablet PO ×2 (05:53→16:53)
[2021-05-16] MEDS: Menthol/Lanolin/Calamine/Znox 113 GM Tube 1 APPLIC TOPICAL ×2 (05:53→16:52)
[2021-05-16] MEDS: Polyethylene Glycol 3350 17 GM PACKET PO (05:53)
[2021-05-16] MEDS: APIXABAN 5 MG TABLET PO ×2 (05:54→16:53)
[2021-05-16] MEDS: Pantoprazole Sodium 20 MG Tablet PO (05:54)
[2021-05-16 07:20] VITALS: PULSE 85; RESP 18; O2SAT 99
[2021-05-16] MEDS: Ipratropium/Albuterol Sulfate 3 ML AMPUL.NEB INHALATION (07:20)
[2021-05-16] MEDS: Bisacodyl 5 MG Tablet 10 MG PO (12:14)
[2021-05-16 13:05] VITALS: PULSE 88; RESP 16; O2SAT 94
[2021-05-16 15:36] VITALS: BP 114/71; PULSE 88; RESP 18; TEMP 36.6; O2SAT 94
[2021-05-16 18:50] VITALS: PULSE 98; RESP 24
[2021-05-16] MEDS: ROSUVASTATIN CALCIUM 40 MG TABLET PO (21:07)
[2021-05-17] MEDS: Menthol/Lanolin/Calamine/Znox 113 GM Tube 1 APPLIC TOPICAL ×2 (06:12→16:32)
[2021-05-17] MEDS: APIXABAN 5 MG TABLET PO ×2 (06:14→16:32)
[2021-05-17] MEDS: Pantoprazole Sodium 20 MG Tablet PO (06:14)
[2021-05-17 06:19] VITALS: O2SAT 99
[2021-05-17] MEDS: Ipratropium/Albuterol Sulfate 3 ML AMPUL.NEB INHALATION ×3 (07:01→19:40)
[2021-05-17 07:05] VITALS: PULSE 88; RESP 24; O2SAT 95
[2021-05-17 14:00] VITALS: PULSE 93; RESP 18; O2SAT 93
--- NOTE | 2021-05-17 15:03 | CASEMGMT ---
Social Work Insurance issued LCD 05/19, DC 05/20. Spoke with pt. Pt agreeable to DC. Provided list of [facility] agencies with quality and resource data. Pt prefers [facility]. Referral made for PT/OT/SN. Pt requesting w/c and is new on O2 6LPM. [place] [facility] [place]. 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
[2021-05-17 15:56] VITALS: BP 114/70; PULSE 91; RESP 16; TEMP 36.8; O2SAT 95
[2021-05-17] MEDS: Bisacodyl 5 MG Tablet 10 MG PO (16:31)
[2021-05-17] MEDS: Senna/Docusate Sodium 1 Tablet PO (16:32)
--- NOTE | 2021-05-17 19:04 | DS.PCM_ITS ---
Providers Date of Admission: 04/29/21 Primary Care Physician: Dr. Itz Sevilla MD Reason For Visit: COVID Diagnosis Discharge Diagnosis (1) Debility: Status: Acute Code(s): R53.81 - Other malaise (2) Acute respiratory failure with hypoxia: Status: Acute Code(s): J96.01 - Acute respiratory failure with hypoxia (3) Pneumonia due to COVID-19 virus: Status: Acute Code(s): U07.1 - COVID-19; J12.82 - Pneumonia due to coronavirus disease 2019 (4) Pulmonary embolism: Status: Acute Code(s): I26.99 - Other pulmonary embolism without acute cor pulmonale (5) Elevated troponin: Status: Acute Code(s): R77.8 - Other specified abnormalities of plasma proteins Medications at Discharge Home Medications omeprazole 20 mg PO DAILY 04/29/21 rosuvastatin 40 mg PO QHS 04/29/21 apixaban 5 mg PO BID 30 Days #60 tab 05/17/21 apixaban [Eliquis] 5 mg PO BID 30 Days #60 tab 05/17/21 ipratropium-albuterol 3 ml INHALATION Q6H PRN 30 Days #360 ml 05/17/21 ipratropium-albuterol 3 ml INHALATION TID 30 Days #270 ml 05/17/21 nitroglycerin 0.4 mg SUBLINGUAL Q5M PRN 30 Days #30 tab 05/17/21 Hospital Course Operations None Procedures None Summary of Care Provided Minutes Spent on Discharge: 35 Hospital Course: 75 year old male with below past medical history hospitalized for acute respiratory failure secondary covid19 pneumonia, complicated by pulmonary embolism, supratherapeutic INR requiring IVC filter placement, a dmitted to TCU with debility, here for rehabilitation, strengthening, prior to discharge home with . Discharge home with 05/20/2021, [facility] PT/OT/SN, Wheelchair, Oxygen. Physical Exam Const alert and oriented x3 General Appearance: cooperative HEENT normocephalic Eyes PERRL and EOMs intact bilaterally Neck supple, no JVD and no carotid bruits Resp normal respiratory effort, normal air movement and clear to auscultation bilaterally Cardio regular rate and regular rhythm GI normal to inspection, nondistended, normoactive bowel sounds, non-tender and non-distended Extremity normal capillary refill General Extremity: Negative for edema Skin no rashes or lesions noted General Skin Exam: no breakdown Psych affect normal Appearance: appropriate Medical Records Data Medical Nutrition Assessment Dietitian: Malnutrition Criteria Met Start: 04/29/21 17:05 Freq: Status: Active Protocol: Document 04/29/21 17:05 GEOFFREY (Rec: 04/29/21 17:05 [facility] [id number]) Nutrition Malnutrition Evidence of Malnutrition Exists Yes Malnutrition (severe): Acute Illness/Injury Evidenced By Suboptimal Energy Intake ( Severe),Weight Loss (Severe), Physical Changes (Severe) Clinical Problem Acute Disease or Injury Related Malnutrition Etiology related to acute illness and inability to consume adequate nutrition to meet est nutritional needs Signs/Symptoms as evidenced by <50% po intake x >1 month and 16.3% wt loss x 6-8 wks as well as muscle/ fat loss in orbitals/temporal/ clavicle region as well as arms and legs. Status Active Problem Recommendation Dietitian Recommendations/Changes Will continue Regular diet, but will change to include small portions and ensure compact w/ meals per res request Weight / BMI Weight Weight: 78.642 kg Body Mass Index (BMI) 22.8 ABG / Lab / Microbiology Data Result Diagrams: 05/15/21 04:05 05/15/21 04:05 D/C Instructions Discharge Diet: No restrictions Discharge Activity: Return to Normal Activity, May Shower and Use Walker May resume sexual activity in: 6-8 weeks Weight Bearing Status: Weight bearing as tolerated Call your doctor if you observe: Fever of 101 or Higher, Inability to urinate, Inability to have a bowel movement, Shortness of breath, Dizziness, Fainting spells, Swelling in the ankles, Chest pain and Uncontrolled pain Additional Instructions: Discharge home with 05/20/2021, [facility] PT/OT/SN, Wheelchair, Oxygen. Please Follow Up With: Itz Payne MD (PCP) When: 1 week. Meaningful Use Info Meaningful Use Diagnoses (Choose all that apply): None applicable Discharge Plan Admission Admit Date/Time: 04/29/21 14:32 Primary Reason for Your Visit: Debility. Attending Provider: Oh Stewart Chi Primary Care Provider: Itz Sevilla Instructions Additional Instructions / Restrictions: Discharge home with 05/20/2021, [facility] PT/OT/SN, Wheelchair, Oxygen. Discharge Orders/Prescriptions Prescriptions: New Eliquis 5 mg tablet 5 mg PO BID 30 Days Qty: 60 RF: 0 ipratropium-albuterol 0.5 mg-3 mg(2.5 mg base)/3 mL solution for nebulization 3 ml inhalation Q6H PRN (Reason: shortness of breath) 30 Days Qty: 360 RF: 0 Continued omeprazole 20 mg Capsule,Delayed Release(Dr/Ec) 20 mg PO DAILY RF: 0 rosuvastatin 40 mg Tablet 40 mg PO QHS RF: 0 ipratropium-albuterol 0.5 mg-3 mg(2.5 mg base)/3 mL Solution For Nebulization 3 ml INHALATION TID 30 Days Qty: 270 RF: 0 nitroglycerin 0.4 mg Tablet, Sublingual 0.4 mg SUBLINGUAL Q5M PRN (Reason: Chest Pain) 30 Days Qty: 30 RF: 0 apixaban 5 mg Tablet 5 mg PO BID 30 Days Qty: 60 RF: 0 Discontinued polyethylene glycol 3350 [Miralax] 17 gram Powder In Packet 17 g PO BID RF: 0 sennosides-docusate sodium 8.6-50 mg Tablet 1 tab-cap PO DAILY RF: 0 metoprolol tartrate 25 mg Tablet 12.5 mg PO BID RF: 0 Freddie Mag Zinc Plus D3 333 mg-133 unit -133 mg-5 mg Tablet 1 tab PO DAILY RF: 0 Referrals / Follow Up: Itz Sevilla MD [Primary Care Provider] - Disposition Disposition (needs filled in before D/C Order can be placed): Home Health Service
[2021-05-17 19:40] VITALS: PULSE 91; RESP 18; O2SAT 94
[2021-05-17] MEDS: ROSUVASTATIN CALCIUM 40 MG TABLET PO (21:07)
[2021-05-17 23:00] VITALS: PULSE 87; RESP 12; O2SAT 96
[2021-05-18] MEDS: Menthol/Lanolin/Calamine/Znox 113 GM Tube 1 APPLIC TOPICAL ×2 (05:48→16:45)
[2021-05-18] MEDS: APIXABAN 5 MG TABLET PO ×2 (05:48→16:46)
[2021-05-18] MEDS: Senna/Docusate Sodium 1 Tablet PO (05:48)
[2021-05-18] MEDS: Pantoprazole Sodium 20 MG Tablet PO (05:48)
[2021-05-18] MEDS: Polyethylene Glycol 3350 17 GM PACKET PO (05:53)
[2021-05-18 07:30] VITALS: PULSE 89; RESP 16; O2SAT 92
[2021-05-18] MEDS: Ipratropium/Albuterol Sulfate 3 ML AMPUL.NEB INHALATION ×3 (07:30→19:18)
--- NOTE | 2021-05-18 08:33 | CASEMGMT ---
Social Work Spoke with pt's to ensure pt told her about DC. Explained appeal rights. is okay with pt discharging home - is happy with HHC services. Added [facility] and [facility] to the HHC order and [facility] Explained w/c and O2 will be delivered to the pt's room prior to DC. Confirmed with Jhonathan Del Rio tagged an O2 concentrator for pt to ensure he had one DCing home. appreciative. Grace Haynes, [employer]ER TRUCK DRIVER GASKET MAKER
--- NOTE | 2021-05-18 09:54 | NURSING ---
here, OT assisting pt with shower and teaching for DC home.
[2021-05-18 11:15] VITALS: PULSE 89; RESP 18; O2SAT 99
--- NOTE | 2021-05-18 11:17 | MDS.RN ---
Pain interview completed for MADAY 05/20/21.
[2021-05-18 14:05] VITALS: PULSE 91; RESP 18
[2021-05-18 14:58] VITALS: BP 116/62; PULSE 88; RESP 24; TEMP 36.8; O2SAT 92
--- NOTE | 2021-05-18 15:10 | CASEMGMT ---
Social Work BIMS and PHQ-9 completed for MDS assessment. Grace Haynes, COOK HELPER INDUSTRIAL HEALTH AND SAFETY PROFESSOR
[2021-05-18 19:19] VITALS: PULSE 90; RESP 18; O2SAT 92
[2021-05-18] MEDS: ROSUVASTATIN CALCIUM 40 MG TABLET PO (20:21)
[2021-05-19] MEDS: Polyethylene Glycol 3350 17 GM PACKET PO (04:34)
[2021-05-19 04:35] VITALS: BP 110/56; PULSE 78; O2SAT 96
[2021-05-19] MEDS: Senna/Docusate Sodium 1 Tablet PO ×2 (04:35→16:15)
[2021-05-19] MEDS: APIXABAN 5 MG TABLET PO ×2 (04:35→16:15)
[2021-05-19] MEDS: Pantoprazole Sodium 20 MG Tablet PO (04:35)
[2021-05-19] MEDS: Menthol/Lanolin/Calamine/Znox 113 GM Tube 1 APPLIC TOPICAL ×2 (04:36→16:16)
[2021-05-19 06:52] VITALS: PULSE 86; RESP 18; O2SAT 96
[2021-05-19] MEDS: Ipratropium/Albuterol Sulfate 3 ML AMPUL.NEB INHALATION ×3 (06:52→19:54)
[2021-05-19 12:50] VITALS: PULSE 86; RESP 16
[2021-05-19 13:23] VITALS: BP 119/71; PULSE 85; RESP 20; TEMP 36.8; O2SAT 92
[2021-05-19 19:50] VITALS: O2SAT 84
[2021-05-19 19:54] VITALS: PULSE 100; RESP 20; O2SAT 92
[2021-05-19] MEDS: ROSUVASTATIN CALCIUM 40 MG TABLET PO (20:06)
--- NOTE | 2021-05-19 20:12 | CPS ---
Had to go to ER after starting pt. on breathing tx. RN going to assist pt. with end of breathin tx.
--- NOTE | 2021-05-19 20:20 | NURSING ---
Pt had several questions about discharge tomorrow, informed pt that [employer] would deliver WC and O2 here before he could be discharged, questions answered and pt reassured that someone would go over all instructions with him before e left. Note left for AM nurse to call [employer] with time for delivery so he can let his know what time to pick him up. Pt voices appreciation.
[2021-05-20] MEDS: APIXABAN 5 MG TABLET PO (05:50)
[2021-05-20] MEDS: Pantoprazole Sodium 20 MG Tablet PO (05:50)
[2021-05-20] MEDS: Senna/Docusate Sodium 1 Tablet PO (05:50)
[2021-05-20] MEDS: Polyethylene Glycol 3350 17 GM PACKET PO (05:50)
[2021-05-20] MEDS: Menthol/Lanolin/Calamine/Znox 113 GM Tube 1 APPLIC TOPICAL (05:51)
[2021-05-20 06:01] VITALS: BP 115/77; PULSE 91
[2021-05-20 06:05] VITALS: O2SAT 94
[2021-05-20 06:32] VITALS: PULSE 71; RESP 20; O2SAT 96
[2021-05-20] MEDS: Ipratropium/Albuterol Sulfate 3 ML AMPUL.NEB INHALATION (06:32)
--- NOTE | 2021-05-20 10:30 | CASEMGMT ---
Social Work Nursing notified SW that pt will need a nebulizer as well as oxygen and wheelchair at discharge. MARIELLE obtained order for nebulizer and wheelchair and faxed to [facility]. Phone call to Eliane at [facility] and informed that pt will need Oxygen, Wheelchair and Nebulizer at time of discharge and orders have been faxed. Eliane confirms all of these items can be delivered to pt room today prior to discharge. KEIRA Lion
== END 2021-05-20 14:15 | disposition home health service (06) | DRG 176 ==
PROVIDERS: Admitting Provider Family Medicine Geriatric Medicine; PCP Internal Medicine; Visit Provider Family Medicine Geriatric Medicine
DX: I26.99 Other pulmonary embolism without acute cor pulmonale (principal); I25.10 Atherosclerotic heart disease of native coronary artery without angina pectoris; Z23 Encounter for immunization; K21.9 Gastro-esophageal reflux disease without esophagitis; E78.5 Hyperlipidemia, unspecified; I10 Essential (primary) hypertension; I73.9 Peripheral vascular disease, unspecified; Z86.16 Personal history of COVID-19; Z87.01 Personal history of pneumonia (recurrent); Z79.899 Other long term (current) drug therapy; Z79.01 Long term (current) use of anticoagulants; Z87.891 Personal history of nicotine dependence
CPT/HCPCS: 36415; 80048; 85014; 85018; 85025; 86850; 86900; 86901; 86920; 86922; 92507; 92523; 94640; 97110; 97116; 97162; 97166; 97530; 97535; 97802; G0008; J7030; 90686; A4216

== ENCOUNTER → 2021-05-09 08:27 | Outpatient (CLI) | payer MEDICARE, SELFPAY ==
[2021-05-09] VITALS (7 sets, daily range): BP systolic 112–123; BP diastolic 63–80; PULSE 65–104; RESP 16–18; TEMP 36.7–37.2; O2SAT 96–99
[2021-05-09] MEDS: 0.9% NaCl Peripheral Flush Adult/Peds IV ×2 (08:39→14:33)
[2021-05-09] MEDS: Furosemide 20 MG/2 ML VIAL IV (11:24)
== END ==
PROVIDERS: PCP Internal Medicine; Referring Provider Family Medicine Geriatric Medicine; Visit Provider Family Medicine Geriatric Medicine
DX: D64.9 Anemia, unspecified (principal)
CPT/HCPCS: 36415; 36430; 86850; 86900; 86901; 86920; 86922; J7040; P9016; A4216; J1940

== ENCOUNTER 2023-09-20 18:10 | Inpatient (IN) | payer MEDICARE, SELFPAY ==
[2023-09-20 18:35] VITALS: BP 119/77; PULSE 77; RESP 20; TEMP 36.6; O2SAT 90; BMI 26.0
[2023-09-20 18:49] VITALS: BMI 26.0
[2023-09-20 20:30] VITALS: O2SAT 96
[2023-09-20 20:32] VITALS: BP 112/67; PULSE 66
[2023-09-20 20:37] VITALS: BP 112/67; PULSE 66
[2023-09-20] MEDS: Fluticasone Propionate 110 MCG AER.W.ADAP 2 PUFF INHALATION (20:44)
[2023-09-20] MEDS: APIXABAN 5 MG TABLET PO (20:44)
[2023-09-20] MEDS: Carvedilol 6.25 MG Tablet PO (20:44)
--- NOTE | 2023-09-20 21:17 | HP.PCM_ITS ---
[facility] - General General Date of Admission: 09/20/23 Date of Service: 09/21/23 Chief Complaint: Here for rehabilitation. HPI Narrative 09/14/2023 DURGA FARRELL, is a 77 Male who presents with followin09/14/2023 Admit to [facility] with SOB. Syncope on toilet, fell, hit head. Pulsox 70% on RA, on Eliquis. NRB, IV fluids given. Recent epidural steroid injection, bladder procedure, UTI. 09/14/[address] chest non-diagnostic for pulmonary embolism. Pulmonary recommended, oxygen, aerosols, prednisone, Doxycycline. 09/14/2023 Cardiology Echo normal EF, Apical hypokinesis, moderately severe aortic stenosis. 09/15/2023 Nephrology for hyponatremia, DDAVP, D5W, Sodium 132. 09/19/2023 [facility]. Syncope 2/2 vasovagal episode. Elevated troponin. Hyponatremia resolved. 09/20/2023 Nephrology notes hyponatremia resolved, Sodium 136. Off IV fluids. 09/20/2023 Admit to TCU with debility, here for rehabilitation, strengthening, prior to discharge home with . [facility] Medical History Acute respiratory failure with hypoxia Coronary artery disease Debility Deep vein thrombosis Elevated troponin Gastroesophageal reflux disease Hyperlipidemia Hypertension Lumbar spinal stenosis Peripheral arterial occlusive disease Pneumonia due to COVID-19 virus Pulmonary embolism Home Medications omeprazole 20 mg capsule,delayed release 20 mg PO DAILY Check with primary doctor 04/29/21 [History Last Taken Unknown] rosuvastatin 40 mg tablet 40 mg PO QHS Check with primary doctor 04/29/21 [History Last Taken Unknown] apixaban 5 mg tablet (Eliquis) 5 mg PO BID blood thinner 30 days #60 tabs 05/17/21 [Rx Last Taken Unknown] ipratropium 0.5 mg-albuterol 3 mg (2.5 mg base)/3 mL nebulization soln 3 ml inhalation Q6H PRN shortness of breath 30 days #360 mL 05/17/21 [Rx Last Taken Unknown] ipratropium 0.5 mg-albuterol 3 mg (2.5 mg base)/3 mL nebulization soln 3 ml inhalation TID breathing 30 days #270 mL 05/17/21 [Rx Last Taken Unknown] nitroglycerin 0.4 mg sublingual tablet 0.4 mg sublingual Q5M PRN Chest Pain 30 days #30 tabs 05/17/21 [Rx Last Taken Unknown] amlodipine 5 mg tablet (Norvasc) 5 mg PO DAILY blood pressure 09/20/23 [History Last Taken Unknown] carvedilol 6.25 mg tablet 6.25 mg PO BID Blood pressure 09/20/23 [History Last Taken Unknown] ferrous sulfate 325 mg (65 mg iron) tablet (FeroSul) 325 mg PO DAILY iron 09/20/23 [History Last Taken Unknown] mometasone 220 mcg/actuation(14 doses) breath activated powder inhaler (Asmanex Twisthaler) 2 inh inhalation BID lungs 09/20/23 [History Last Taken Unknown] polyethylene glycol 3350 17 gram/dose oral powder (Miralax) 17 g PO DAILY constipation 09/20/23 [History Last Taken Unknown] Allergy/AdvReac Type Severity Reaction Status Date / Time gabapentin AdvReac Severe mental Verified 09/20/23 18:59 status change dextroamphetamine AdvReac Unknown PT UNSURE Verified 09/20/23 18:59 OF REACTION atorvastatin AdvReac Other Verified 04/29/21 16:40 Surgical History History of carotid endarterectomy History of lumbar fusion Hx of CABG S/P femoral-femoral bypass surgery S/P IVC filter [place] teeth extracted Social History household members: spouse Smoking Status: Former smoker alcohol intake: current alcohol intake frequency: a few times a week substance use type: does not use ROS Constitutional Constitutional: Denies chills, fever(s) or weight gain ENT HEENT: Denies headache(s), nasal congestion or nasal discharge Cardiovascular Cardiovascular: Denies chest pain or palpitations Respiratory/Chest Respiratory/Chest: Denies cough, excessive phlegm production or shortness of breath with exertion Gastrointestinal Gastrointestinal: Denies abdominal pain, nausea or vomiting Genitourinary Genitourinary: Denies dysuria Musculoskeletal Musculoskeletal: Denies joint pain or joint swelling Integumentary Integumentary: Denies rash or wounds Neurologic Neurologic: Denies focal weakness, numbness or tingling Psychiatric Psychiatric: Denies anxiety, auditory hallucinations, depression, homicidal ideation or suicidal ideation Vital Signs Vital Signs Vital Signs: 09/20/23 18:35 09/20/23 20:32 09/20/23 20:37 Temperature 97.8 F Temperature Source Temporal Pulse Rate 77 66 66 Respiratory Rate 20 H Blood Pressure 119/77 112/67 112/67 Blood Pressure Mean 91 82 82 Blood Pressure Source Monitor Monitor Monitor Blood Pressure Position Sitting Supine Sitting Blood Pressure Location Left Arm Left Arm Pulse Ox 90 Oxygen Delivery Method Room Air Weight Weight: 80.014 kg Body Mass Index (BMI) 26.0 Physical Exam Const alert General Appearance: cooperative HEENT normocephalic Eyes PERRL and EOMs intact bilaterally Neck supple, no JVD and no carotid bruits Resp normal respiratory effort, normal air movement and clear to auscultation bilaterally Cardio regular rate and regular rhythm GI normal to inspection, nondistended, normoactive bowel sounds, non-tender and non-distended Extremity normal capillary refill General Extremity: Negative for edema Skin no rashes or lesions noted General Skin Exam: no breakdown Psych affect normal Appearance: appropriate Results Lab / Micro Data 09/21/23 05:14 09/21/23 05:14 Assessment & Plan Assessment/Plan (1) Debility: (2) Syncope: (3) Acute respiratory failure with hypoxia: (4) Vasovagal episode: (5) Moderate to severe aortic stenosis: (6) NSTEMI (non-ST elevated myocardial infarction): (7) Hyponatremia: (8) Coronary artery disease: (9) Gastroesophageal reflux disease: (10) Hyperlipidemia: (11) Aneurysm of left common iliac artery: (12) Deep vein thrombosis: (13) Pulmonary embolism: (14) COPD (chronic obstructive pulmonary disease): PLAN: Plan 77 year old male with below past medical history hospitalized for syncope 2/2 vasovagal episode, complicated by acute respiratory failure with hypoxia 2/2 COPD exacerbation, complicated by moderately severe aortic stenosis, NSTEMI, hyponatremia, admitted to TCU with debility, here for rehabilitation, strengthening, prior to discharge home with . * Debility - PT/OT. * Pain - Tylenol 1000mg q6 prn pain (1-10). * Bowel - Miralax 17gm daily. * Adult immunization - Administer pneumonia vaccine, covid vaccine, flu vaccine as appropriate. * DVT prophylaxis - on Eilquis. * Hypertension- Coreg 6.25mg bid, Amlodipine 5mg daily. * DVT/PE - Eliquis 5mg bid. * Iron deficiency anemia - Ferrous sulfate 325mg daily. * COPD - Fluticasone 2 puffs bid. * GERD - Pantoprazole 20mg daily. * Hyperlipidemia - Rosuvastatin 40mg qhs.
--- NOTE | 2023-09-20 23:58 | NURSING ---
Pt self-transferred to the bathroom. Rang for staff from recliner than verbalized he ambulated into bathroom using walker and pulled cord to call for staff. Acknowledges he was informed not to get up without assistance. Informed pt room camera will be turned on and if he completes another unassisted transfer that bed and chair alarms will be implemented. Pt verbalizes understanding.
[2023-09-21 05:47] LABS: Absolute Lymphocyte Count 2.89 X10^3/uL (0.83-4.51); Absolute Neutrophil Count 6.6 X10^3/uL (2.0-7.7); Basophil# 0.01 X10^3/uL; Basophil% 0.1 % (0-1); Eosinophils% 0.9 % (0-5); Hematocrit 47.1 % (40-54); Hemoglobin 16.5 g/dL (13.0-16.5); Lymphocyte # 2.89 X10^3/ul (0.83-4.51); Lymphocyte % 26.2 % (19-41); Mean Corpuscular Hgb 36.7 pg (27.0-32.0); Mean Corpuscular Volume 104.9 fL (80-94); Mean Platelet Vol. 10.1 fl (6.2-12.0); Monocyte# 1.37 X10^3/uL; Monocyte% 12.4 % (0-10); NRBC Flagged by Analyzer 0 % (0-5); Neutrophil # 6.57 X10^3/uL (2.7-7.7); Neutrophil % 59.6 % (47-70); Platelet Count 167 K/mm3 (150-450); RBC Distribution Width CV 15.3 % (11.6-14.6); RBC Distribution Width SD 60.4 fl (35.1-43.9); Red Blood Count 4.49 M/mm3 (4.6-6.2)
[2023-09-21 06:14] VITALS: O2SAT 92
[2023-09-21 07:12] LABS: Anion Gap 7 (5-15); BUN 24 mg/dL (7-18); BUN/Creat Ratio 23.8 RATIO (10-20); Calcium,Total 8.5 mg/dL (8.5-10.1); Chloride 104 mmol/L (98-107); Creatinine, Serum 1.01 mg/dL (0.70-1.30); EST Glomerular Filtration Rate 76 mL/min (>60); Est Glom Filt Rate - Afr Amer 91 mL/min (>60); Estimated Creatinine Clearance 59.31 ml/min; Glucose 93 mg/dL (74-106); Sodium Level 135 mmol/L (136-145)
[2023-09-21] MEDS: Polyethylene Glycol 3350 17 GM PACKET PO (08:36)
[2023-09-21] MEDS: Ferrous Sulfate 325 MG Tablet PO (08:37)
[2023-09-21] MEDS: Carvedilol 6.25 MG Tablet PO ×2 (08:38→20:57)
[2023-09-21] MEDS: Fluticasone Propionate 110 MCG AER.W.ADAP 2 PUFF INHALATION ×2 (08:38→20:57)
[2023-09-21] MEDS: APIXABAN 5 MG TABLET PO ×2 (08:38→20:56)
[2023-09-21] MEDS: Menthol/Lanolin/Calamine/Znox 113 GM Tube 1 APPLIC TOPICAL ×2 (08:41→20:56)
[2023-09-21] MEDS: Nystatin Powder 15gm Bottle 1 APPLIC TOPICAL ×2 (08:41→20:58)
[2023-09-21] MEDS: amLODIPine 5 MG Tablet PO (08:42)
[2023-09-21] MEDS: Pantoprazole Sodium 20 MG Tablet PO (08:42)
--- NOTE | 2023-09-21 09:42 | NURSING ---
Letter Carrier Note; Activity Asset: Shiv Solis prefers to be called Davin. Davin is independent in his choice of daily activities. He enjoys talking w/other about his travels and getting to know people. He will read, watch tv and spend time w/family and friends. He welcomes visits from the Breakfast Manager and therapy dog when available. Staff will continue to remind him of weekly activities and respect his right to say no.
[2023-09-21] MEDS: Tuberculin,Purif.prot.deriv. 50 TU/ML Vial 0.1 ML ID (10:48)
--- NOTE | 2023-09-21 14:43 | WOUNDNOTE ---
wound photo: left great toe
--- NOTE | 2023-09-21 15:17 | PCM.PN.DRR ---
Documented by User: Reilly Corley 09/21/23 15:39 TCU RX Drug Regimen Review Subjective/Objective Subjective/Objective: Subjective: TCU admission note. 77 year old male with below past medical history hospitalized for syncope 2/2 vasovagal episode, complicated by acute respiratory failure with hypoxia 2/2 COPD exacerbation, complicated by moderately severe aortic stenosis, NSTEMI, hyponatremia, admitted to TCU with debility, here for rehabilitation, strengthening, prior to discharge home with . Objective: Allergies gabapentin Adverse Reaction (Severe, Verified 09/20/23 18:59) mental status change dextroamphetamine Adverse Reaction (Unknown, Verified 09/20/23 18:59) PT UNSURE OF REACTION atorvastatin Adverse Reaction (Verified 04/29/21 16:40) Other Current Medications Generic Name Dose Route Start Last Admin Trade Name Freq PRN Reason Stop Dose Admin Acetaminophen 1,000 mg 09/20/23 21:28 Acetaminophen 500 Mg Tablet PO Q6H PRN PRN Pain Score 1-10 Amlodipine Besylate 5 mg 09/21/23 10:00 09/21/23 08:42 Amlodipine 5 Mg Tablet PO 5 mg DAILY VIOLET Administration Protocol Apixaban 5 mg 09/20/23 22:00 09/21/23 08:38 Apixaban 5 Mg Tablet PO 5 mg BID VIOLET Administration Calamine/Phenol 1 applic 09/21/23 10:00 09/21/23 08:41 Menthol/Lanolin/Calamine/Znox 113 Gm Tube TOPICAL 1 applic BID VIOLET Administration Protocol Carvedilol 6.25 mg 09/20/23 22:00 09/21/23 08:38 Carvedilol 6.25 Mg Tablet PO 6.25 mg BID VIOLET Administration Protocol Ferrous Sulfate 325 mg 09/21/23 08:00 09/21/23 08:37 Ferrous Sulfate 325 Mg Tablet PO 325 mg DAILYCM VIOLET Administration Fluticasone Propionate 2 puff 09/20/23 22:00 09/21/23 08:38 Fluticasone Propionate 110 Mcg Aer.W.Adap INHALATION 2 puff BID VIOLET Administration Nystatin 1 applic 09/21/23 10:00 09/21/23 08:41 Nystatin Powder 15gm Bottle TOPICAL 1 applic BID VIOLET Administration Protocol Pantoprazole Sodium 20 mg 09/21/23 10:00 09/21/23 08:42 Pantoprazole Sodium 20 Mg Tablet PO 20 mg DAILY VIOLET Administration Polyethylene Glycol 17 gm 09/21/23 10:00 09/21/23 08:36 Polyethylene Glycol 3350 17 Gm Packet PO 17 gm DAILY VIOLET Administration Rosuvastatin Calcium 40 mg 09/20/23 22:00 09/20/23 19:06 Rosuvastatin Calcium 40 Mg Tablet PO Not Given QHS VOILET Tuberculin PPD 0.1 ml 09/28/23 10:00 Tuberculin,Purif.Prot.Deriv. 50 Tu/Ml Vial ID 09/28/23 10:01 X1 ONE Problem List (Updated 09/20/23 @ 21:[address] Oh Stewart MD) COPD (chronic obstructive pulmonary disease) (Chronic) Aneurysm of left common iliac artery (Acute) Hyponatremia (Acute) NSTEMI (non-ST elevated myocardial infarction) (Acute) Moderate to severe aortic stenosis (Acute) Vasovagal episode (Acute) Syncope (Acute) Pulmonary embolism (Acute) Debility (Acute) Deep vein thrombosis (Acute) Hyperlipidemia (Acute) Gastroesophageal reflux disease (Acute) Coronary artery disease (Acute) Acute respiratory failure with hypoxia (Acute) Vital Signs Temp Pulse Resp BP Pulse Ox O2 Del Method 97.8 F 66 20 H 112/67 92 Room Air 09/20/23 18:35 09/20/23 20:37 09/20/23 18:35 09/20/23 20:37 09/21/23 06:14 09/21/23 06:14 Oxygen Delivery Method Room Air Weight: 80.014 kg Body Mass Index (BMI) 26.0 Sodium 135 mmol/L (136-145) L 09/21/23 05:14 Potassium 4.0 mmol/L (3.5-5.1) 09/21/23 05:14 Chloride 104 mmol/L (98-107) 09/21/23 05:14 Carbon Dioxide 24.0 mmol/L (21.0-32.0) 09/21/23 05:14 Anion Gap 7 (5-15) 09/21/23 05:14 BUN 24 mg/dL (7-18) H 09/21/23 05:14 Creatinine 1.01 mg/dL (0.70-1.30) 09/21/23 05:14 Est GFR (MDRD) Af Amer 91 mL/min (>60) 09/21/23 05:14 Est GFR (MDRD) Non-Af 76 mL/min (>60) 09/21/23 05:14 BUN/Creatinine Ratio 23.8 RATIO (10-20) H 09/21/23 05:14 Glucose 93 mg/dL (74-106) 09/21/23 05:14 Assessment/Plan: 1. Acetaminophen 1000 mg PO Q6H PRN. The patient has not required any PRN acetaminophen so far this admission. Please continue to monitor pain levels, PRN medication usage and LFTs (not recent LFTs documented). 2. Bowel: polyethylene glycol 17 grams PO daily. The patient's last bowel movement was on 09/20/23. Please continue to monitor for diarrhea, constipation, and bowel movements. 3. Hypertension: amlodipine 5 mg PO daily, carvedilol 6.25 mg PO BID. Please continue to monitor blood pressure (recent range = 085-071-16-77 mmHg), heart rates (recent range = 66-77 beats/min), for lower extremity edema and for fatigue. 4. History of DVT/PE: apixaban 5 mg PO BID. Please continue to monitor for s/s of PE/DVT such as shortness of breath, lower extremity edema/pain/erythema, for bleeding/excessive bruising, hemoglobin levels (Hgb = 16.5 g/dL on 09/21/23), platelets (plt = 167 K/mm3 on 09/21/23). 5. GERD: pantoprazole 20 mg PO daily. Please continue to monitor for GERD, for diarrhea that could indicate clostridium difficile infection, and for s/s of bone resorption issues such as fractures. 6. Iron deficiency anemia: ferrous sulfate 325 mg PO daily. Please continue to monitor hemoglobin levels (Hgb = 16.5 g/dL on 09/21/23), and iron levels (no recent iron levels documented), as well as for GI distress with iron administration. 7. Hyperlipidemia: rosuvastatin 40 mg PO QHS. Please continue to monitor lipid levels (no recent lipid levels documented), LFTs (no recent LFTs documented) and for myalgias. Please consider ordering lipid levels if clinically indicated. 8. COPD: fluticasone 2 puffs PO BID. Please continue to monitor for s/s of a COPD exacerbation such as increased cough, shortness of breath and increased sputum production, for s/s of oral thrush and for s/s of pneumonia. Please ensure the patient rinses their mouth out after each fluticasone administration to help prevent oral thrush. 9. Skin irritation/tinea corporis: calmoseptine 1 application topically BID, nystatin powder 1 application topically BID. Please continue to monitor for resolution of tinea corporis and for skin irritation/integrity. Assessment/Plan for indications treated with psychotropic medications: NA Medical chart and medication regimen reviewed. The following medication irregularities or issues were identified: 1. Hyperlipidemia: rosuvastatin 40 mg PO QHS. Please consider ordering lipid levels if clinically indicated. Date Date of Note:: 09/21/23 Documented by User: Dr. Oh Stewart MD 09/21/23 17:52 TCU RX Drug Regimen Review Provider Comments Provider responsibility Provider Comments to Recommendations by Pharmacy: Agree
[2023-09-21 15:38] VITALS: BP 90/57; PULSE 75; RESP 18; TEMP 36.1; O2SAT 98
--- NOTE | 2023-09-21 16:35 | CASEMGMT ---
Social Work Met with pt to complete initial assessment. Introduced self and role. Pt had previous stay at TCU a couple years ago. Verified contacts. Confirmed Full Code Status. brought in Living Will and DPOAHC during visit and added to chart. is DPOAHC. Educated to [facility] with [employer] 09/25/23 and continued stay is not guaranteed with each review. Goal is for patient to return home with and be independent with adl's and ambulation. SW will continue to follow for DC planning. KEIRA Flores
[2023-09-21] MEDS: Acetaminophen 500 MG Tablet 1000 MG PO (20:55)
[2023-09-21] MEDS: ROSUVASTATIN CALCIUM 40 MG TABLET PO (20:57)
[2023-09-22 06:27] LABS: Cholesterol 118 mg/dL (200); High Density Lipoprotein 30 mg/dL; Triglycerides 81 mg/dL; Very Low Density Lipoprotein 16 mg/dL (5-40)
[2023-09-22 07:58] VITALS: BP 136/77; PULSE 72; RESP 18; TEMP 37.2; O2SAT 92
[2023-09-22] MEDS: Fluticasone Propionate 110 MCG AER.W.ADAP 2 PUFF INHALATION ×2 (08:00→21:30)
[2023-09-22] MEDS: APIXABAN 5 MG TABLET PO ×2 (08:00→21:28)
[2023-09-22] MEDS: Carvedilol 6.25 MG Tablet PO ×2 (08:01→21:28)
[2023-09-22] MEDS: amLODIPine 5 MG Tablet PO (08:01)
[2023-09-22] MEDS: Pantoprazole Sodium 20 MG Tablet PO (08:02)
[2023-09-22] MEDS: Ferrous Sulfate 325 MG Tablet PO (08:02)
[2023-09-22] MEDS: Polyethylene Glycol 3350 17 GM PACKET PO (08:02)
[2023-09-22] MEDS: Menthol/Lanolin/Calamine/Znox 113 GM Tube 1 APPLIC TOPICAL (08:05)
[2023-09-22] MEDS: Nystatin Powder 15gm Bottle 1 APPLIC TOPICAL (08:05)
[2023-09-22 13:43] VITALS: BP 111/75; PULSE 73; RESP 16; TEMP 36.7; O2SAT 92
[2023-09-22] MEDS: Acetaminophen 500 MG Tablet 1000 MG PO (21:26)
[2023-09-22] MEDS: ROSUVASTATIN CALCIUM 40 MG TABLET PO (21:28)
[2023-09-22 21:32] VITALS: BP 108/57; PULSE 72; RESP 16
--- NOTE | 2023-09-23 04:06 | NURSING ---
Addendum entered by Rosa Mendez 09/23/23 13:43: dr stewart updated, new order to insert taveras d/t urinary retention, start flomax. Original Note: patient c/o urine retention, A&Ox3, reports recent history of urine retention requiring straight cath at a different hospital after a fall. Bladder scan result 770mL post void, bladder appears firm and distended. Patient educated on need for straight cath per standing order, pt. agreeable. Straight cath with aseptic technique maintained per policy, patient tolerated well, 700mL clear obdulio urine obtained. Written communication left for Dr. Stewart regarding patient urine retention. No distress observed or reported. Denies further requests. Call light in reach.
[2023-09-23] MEDS: Polyethylene Glycol 3350 17 GM PACKET PO (09:11)
[2023-09-23] MEDS: Carvedilol 6.25 MG Tablet PO ×2 (09:12→21:58)
[2023-09-23] MEDS: APIXABAN 5 MG TABLET PO ×2 (09:12→21:58)
[2023-09-23] MEDS: Ferrous Sulfate 325 MG Tablet PO (09:13)
[2023-09-23] MEDS: Menthol/Lanolin/Calamine/Znox 113 GM Tube 1 APPLIC TOPICAL ×2 (09:13→21:59)
[2023-09-23] MEDS: amLODIPine 5 MG Tablet PO (09:14)
[2023-09-23] MEDS: Pantoprazole Sodium 20 MG Tablet PO (09:14)
[2023-09-23] MEDS: Nystatin Powder 15gm Bottle 1 APPLIC TOPICAL ×2 (09:14→22:03)
[2023-09-23] MEDS: Fluticasone Propionate 110 MCG AER.W.ADAP 2 PUFF INHALATION ×2 (09:15→22:01)
[2023-09-23] MEDS: Acetaminophen 500 MG Tablet 1000 MG PO ×2 (09:28→21:58)
--- NOTE | 2023-09-23 11:29 | NURSING ---
Addendum entered by Clau Martinez 09/23/23 16:25: pt back to room Original Note: Pt left with family for Flexganesh
[2023-09-23 16:00] VITALS: BP 114/63; PULSE 68; RESP 14; TEMP 36.7; O2SAT 92
[2023-09-23] MEDS: Tamsulosin HCl 0.4 MG Capsule PO (16:33)
--- NOTE | 2023-09-23 19:55 | NURSING ---
Pt states that his confirmed that he was taking Flomax routinely @ home. He states that he believes he has not taken it since he was admitted to [facility].
[2023-09-23] MEDS: ROSUVASTATIN CALCIUM 40 MG TABLET PO (21:58)
[2023-09-24] MEDS: Acetaminophen 500 MG Tablet 1000 MG PO (06:18)
[2023-09-24] MEDS: Ferrous Sulfate 325 MG Tablet PO (07:56)
[2023-09-24] MEDS: APIXABAN 5 MG TABLET PO ×2 (07:56→22:48)
[2023-09-24] MEDS: amLODIPine 5 MG Tablet PO (07:56)
[2023-09-24] MEDS: Pantoprazole Sodium 20 MG Tablet PO (07:56)
[2023-09-24] MEDS: Carvedilol 6.25 MG Tablet PO ×2 (07:56→22:49)
[2023-09-24] MEDS: Polyethylene Glycol 3350 17 GM PACKET PO (07:57)
[2023-09-24] MEDS: Fluticasone Propionate 110 MCG AER.W.ADAP 2 PUFF INHALATION ×2 (07:57→22:47)
[2023-09-24] MEDS: Menthol/Lanolin/Calamine/Znox 113 GM Tube 1 APPLIC TOPICAL ×2 (12:51→22:46)
[2023-09-24] MEDS: Nystatin Powder 15gm Bottle 1 APPLIC TOPICAL ×2 (12:52→22:47)
--- NOTE | 2023-09-24 13:02 | NURSING ---
Offered covid vaccine, VIS provided. Patient refuses at this time.
[2023-09-24 13:32] VITALS: BP 117/63; PULSE 71; RESP 18; TEMP 36.1; O2SAT 93
[2023-09-24] MEDS: Tamsulosin HCl 0.4 MG Capsule PO (18:13)
[2023-09-24 22:45] VITALS: BP 116/77; PULSE 89
[2023-09-24] MEDS: ROSUVASTATIN CALCIUM 40 MG TABLET PO (22:49)
[2023-09-25] MEDS: Acetaminophen 500 MG Tablet 1000 MG PO ×2 (00:29→12:11)
--- NOTE | 2023-09-25 02:20 | NURSING ---
Pt calls requesting Tylenol. Last dose less than 2 hours ago. Observed intermittent involuntary spasms to LLE. Muscle spasms palpated to left hamstring. Loosely wrapped a warm blanket around left thigh and hamstring. May consider a heating pad if this is ineffective. Encouraged to complete ankle pumps and stretch LLE to help ease spasms. Pt notes he has had similar pain in the past and took both Acetaminophen and Bowler at the same time in addition to using a heated blanket at home. Will continue to monitor.
[2023-09-25] MEDS: APIXABAN 5 MG TABLET PO ×2 (08:48→21:50)
[2023-09-25] MEDS: Ferrous Sulfate 325 MG Tablet PO (08:48)
[2023-09-25] MEDS: amLODIPine 5 MG Tablet PO (08:49)
[2023-09-25] MEDS: Pantoprazole Sodium 20 MG Tablet PO (08:49)
[2023-09-25] MEDS: Carvedilol 6.25 MG Tablet PO ×2 (08:49→21:51)
[2023-09-25] MEDS: Fluticasone Propionate 110 MCG AER.W.ADAP 2 PUFF INHALATION ×2 (08:50→21:49)
[2023-09-25] MEDS: Menthol/Lanolin/Calamine/Znox 113 GM Tube 1 APPLIC TOPICAL ×2 (08:50→21:47)
[2023-09-25 10:35] VITALS: BMI 25.9
--- NOTE | 2023-09-25 12:38 | NURSING ---
R' STATING HE TOOK NORCO AT HOME. REQUESTING STRONGER PAIN MED FOR NIGHT. STATES TYLENOL IS FINE T/O DAY BUT WOULD LIKE SOMETHING STRONGER TO GET HIM THROUGH THE NIGHT. LEFT NOTE FOR DR MINAYA TO ADDRESS. UPDATE R' ON N.O. BACLOFEN HS. AGREEABLE.
[2023-09-25 13:30] VITALS: BP 107/60; PULSE 73; RESP 16; TEMP 36.7; O2SAT 94
--- NOTE | 2023-09-25 14:00 | WOUNDNOTE ---
Pt is currently out of room. will assess the left great toe later this week.
[2023-09-25] MEDS: Tamsulosin HCl 0.4 MG Capsule PO (17:00)
[2023-09-25] MEDS: ROSUVASTATIN CALCIUM 40 MG TABLET PO (21:49)
[2023-09-25] MEDS: Baclofen 10 MG Tablet PO (21:51)
[2023-09-25] MEDS: Nystatin Powder 15gm Bottle 1 APPLIC TOPICAL (21:53)
[2023-09-25 21:59] VITALS: BP 115/69; PULSE 77
[2023-09-26] MEDS: oxyCODONE 5 MG Tablet PO (04:02)
[2023-09-26] MEDS: APIXABAN 5 MG TABLET PO ×2 (08:57→21:24)
[2023-09-26] MEDS: Ferrous Sulfate 325 MG Tablet PO (08:57)
[2023-09-26] MEDS: Fluticasone Propionate 110 MCG AER.W.ADAP 2 PUFF INHALATION ×2 (08:58→21:24)
[2023-09-26] MEDS: Menthol/Lanolin/Calamine/Znox 113 GM Tube 1 APPLIC TOPICAL ×2 (08:58→21:23)
[2023-09-26] MEDS: Pantoprazole Sodium 20 MG Tablet PO (08:59)
[2023-09-26] MEDS: Nystatin Powder 15gm Bottle 1 APPLIC TOPICAL ×2 (08:59→21:24)
[2023-09-26] MEDS: Carvedilol 6.25 MG Tablet PO ×2 (08:59→21:24)
[2023-09-26] MEDS: amLODIPine 5 MG Tablet PO (08:59)
[2023-09-26] MEDS: Baclofen 10 MG Tablet PO ×2 (13:46→21:24)
[2023-09-26 14:54] VITALS: BP 108/66; PULSE 73; RESP 18; TEMP 36.6; O2SAT 95
--- NOTE | 2023-09-26 15:04 | CASEMGMT ---
Social Work IDT met with patient and , Rosanna for care plan meeting. Discussed progress with PT/OT. SW notified patient of his [employer] Medicare insurance coverage and next review date of 09/23 pending. Patient is improving with therapy service walking with contact guard and min A with transfers. Patient informed SW that he had home health care in the past through [facility] for PT/OT services. Patient informed SW that if required, he is agreeable to in home rehabilitation services for SN/PT/OT. Patient would like to review discharge pending progress and healing of wound. Patient's expressed concerns about the patient discharging home with tavreas. Patient's is uncertain that she can provide care for taveras. Patient to follow up with physician to discuss concerns regarding taveras care, retention, and potential removal of taveras. Patient discussed leakage with taveras. Patient denied any need for DME upon discharge at this time. PT is okay with utilizing rollator per physical therapy. SW will continue to follow for discharge planning. CLIFF Morales
--- NOTE | 2023-09-26 15:52 | WOUNDNOTE ---
wound photo: left great toe
[2023-09-26] MEDS: Juven (unflavored) Packet 1 PACKET PO (16:09)
[2023-09-26] MEDS: Tamsulosin HCl 0.4 MG Capsule PO (16:10)
[2023-09-26] MEDS: ROSUVASTATIN CALCIUM 40 MG TABLET PO (21:24)
[2023-09-26 21:25] VITALS: PULSE 74; RESP 16; O2SAT 92
[2023-09-27] MEDS: Baclofen 10 MG Tablet PO ×3 (06:08→21:00)
[2023-09-27] MEDS: oxyCODONE 5 MG Tablet PO ×2 (06:27→23:09)
[2023-09-27] MEDS: Juven (unflavored) Packet 1 PACKET PO ×2 (08:10→16:39)
[2023-09-27] MEDS: Carvedilol 6.25 MG Tablet PO ×2 (08:12→20:57)
[2023-09-27] MEDS: Ferrous Sulfate 325 MG Tablet PO (08:12)
[2023-09-27] MEDS: Fluticasone Propionate 110 MCG AER.W.ADAP 2 PUFF INHALATION ×2 (08:13→20:59)
[2023-09-27] MEDS: APIXABAN 5 MG TABLET PO ×2 (08:13→20:59)
[2023-09-27] MEDS: Pantoprazole Sodium 20 MG Tablet PO (08:13)
[2023-09-27] MEDS: amLODIPine 5 MG Tablet PO (08:13)
[2023-09-27] MEDS: Menthol/Lanolin/Calamine/Znox 113 GM Tube 1 APPLIC TOPICAL ×2 (08:18→20:56)
--- NOTE | 2023-09-27 10:33 | CASEMGMT ---
Social Work SW met with patient and completed MDS interviews. BIMS PHQ2 0/2 KEIRA Flores
[2023-09-27 13:38] VITALS: BP 108/60; PULSE 68; RESP 16; TEMP 36.6; O2SAT 91
--- NOTE | 2023-09-27 15:39 | CHAPLAIN ---
Type of Pastoral Visit _x__ Initial Visit ___ Follow-up Visit ___ On-call Visit ___ General Patient Visit ___ Spiritual Assessment ___ Family Conference ___ Bereavement ___ Rapid Response ___ Code Blue ___ Other (describe below) Pastoral Care Referral From _x__ Patient ___ Family ___ Nurse ___ Physician ___ Learning Support Resource Room Teacher ___ Signals Intelligence Superintendent ___ Other (describe below) Sacrament/Intervention _x__ Active listening ___ Anointing ___ Mormon ___ Bereavement ___ Communion ___ Loraine exploration ___ _x__ Life review _x__ Prayer ___ Reconciliation ___ Sacrament of Sick ___ Supportive presence ___ Wedding ___ Other (describe below) Pastoral Comments patient is welcoming and very talkative; pt gives history of health issues and life review; pt finds support in spouse and in God; pt then received visitors and this encounter ended
[2023-09-27] MEDS: Tamsulosin HCl 0.4 MG Capsule PO (16:40)
[2023-09-27] MEDS: ROSUVASTATIN CALCIUM 40 MG TABLET PO (20:58)
[2023-09-27] MEDS: Nystatin Powder 15gm Bottle 1 APPLIC TOPICAL (21:04)
[2023-09-27 22:00] VITALS: PULSE 72; RESP 16; O2SAT 91
[2023-09-28 00:42] VITALS: BP 133/70; PULSE 79
[2023-09-28] MEDS: Baclofen 10 MG Tablet PO ×3 (05:22→21:54)
[2023-09-28 05:43] VITALS: PULSE 67; RESP 16; O2SAT 91
[2023-09-28 05:59] LABS: Absolute Lymphocyte Count 2.62 X10^3/uL (0.83-4.51); Basophil# 0.05 X10^3/uL; Basophil% 0.5 % (0-1); Eosinophil# 0.25 X10^3/uL; Eosinophils% 2.5 % (0-5); Hematocrit 45.4 % (40-54); Hemoglobin 15.4 g/dL (13.0-16.5); Lymphocyte # 2.62 X10^3/ul (0.83-4.51); Lymphocyte % 25.8 % (19-41); Mean Corp Hgb Conc 33.9 g/dL (32-36); Mean Corpuscular Hgb 36.1 pg (27.0-32.0); Mean Corpuscular Volume 106.3 fL (80-94); Mean Platelet Vol. 10.2 fl (6.2-12.0); Monocyte# 1.15 X10^3/uL; Monocyte% 11.3 % (0-10); NRBC Flagged by Analyzer 0 % (0-5); Neutrophil # 6.04 X10^3/uL (2.7-7.7); Neutrophil % 59.4 % (47-70); Platelet Count 146 K/mm3 (150-450); RBC Distribution Width CV 14.6 % (11.6-14.6); RBC Distribution Width SD 57.1 fl (35.1-43.9); Red Blood Count 4.27 M/mm3 (4.6-6.2); White Blood Count 10.2 K/mm3 (4.4-11.0)
[2023-09-28 06:49] LABS: Anion Gap 5 (5-15); BUN 24 mg/dL (7-18); BUN/Creat Ratio 22.4 RATIO (10-20); Calcium,Total 8.5 mg/dL (8.5-10.1); Chloride 106 mmol/L (98-107); Creatinine, Serum 1.07 mg/dL (0.70-1.30); EST Glomerular Filtration Rate 71 mL/min (>60); Est Glom Filt Rate - Afr Amer 86 mL/min (>60); Estimated Creatinine Clearance 55.06 ml/min; Glucose 104 mg/dL (74-106); Potassium 4.5 mmol/L (3.5-5.1); Sodium Level 136 mmol/L (136-145)
[2023-09-28] MEDS: Juven (unflavored) Packet 1 PACKET PO ×2 (07:50→17:37)
[2023-09-28] MEDS: Ferrous Sulfate 325 MG Tablet PO (07:51)
[2023-09-28] MEDS: APIXABAN 5 MG TABLET PO ×2 (09:40→21:54)
[2023-09-28] MEDS: Fluticasone Propionate 110 MCG AER.W.ADAP 2 PUFF INHALATION ×2 (09:40→21:54)
[2023-09-28] MEDS: amLODIPine 5 MG Tablet PO (09:41)
[2023-09-28] MEDS: Carvedilol 6.25 MG Tablet PO ×2 (09:41→21:55)
[2023-09-28] MEDS: Pantoprazole Sodium 20 MG Tablet PO (09:42)
[2023-09-28] MEDS: Nystatin Powder 15gm Bottle 1 APPLIC TOPICAL (09:42)
[2023-09-28] MEDS: Tuberculin,Purif.prot.deriv. 50 TU/ML Vial 0.1 ML ID (09:52)
[2023-09-28] MEDS: Menthol/Lanolin/Calamine/Znox 113 GM Tube 1 APPLIC TOPICAL ×2 (09:52→21:55)
--- NOTE | 2023-09-28 12:32 | NURSING ---
Archeologist Classical Note; MDS for 09/27/2023
--- NOTE | 2023-09-28 13:50 | DS.PCM_ITS ---
Providers Date of Admission: 09/20/23 Primary Care Physician: Dr. Itz Sevilla MD Consultations 09/20/23 20:34 Consult: Onc/Wound/internal carver Routine Comment: Reason for Consult:: Unstageable wound- dorsal aspect of left great toe Reason For Visit: COPD Diagnosis Discharge Diagnosis (1) Debility: Status: Acute Code(s): R53.81 - Other malaise (2) Syncope: Status: Acute Code(s): R55 - Syncope and collapse (3) Acute respiratory failure with hypoxia: Status: Acute Code(s): J96.01 - Acute respiratory failure with hypoxia (4) Vasovagal episode: Status: Acute Code(s): R55 - Syncope and collapse (5) Moderate to severe aortic stenosis: Status: Acute Code(s): I35.0 - Nonrheumatic aortic (valve) stenosis (6) NSTEMI (non-ST elevated myocardial infarction): Status: Acute Code(s): I21.4 - Non-ST elevation (NSTEMI) myocardial infarction (7) Hyponatremia: Status: Acute Code(s): E87.1 - Hypo-osmolality and hyponatremia (8) Coronary artery disease: Status: Acute Code(s): I25.10 - Atherosclerotic heart disease of [place] coronary artery without angina pectoris (9) Gastroesophageal reflux disease: Status: Acute Code(s): K21.9 - Gastro-esophageal reflux disease without esophagitis (10) Hyperlipidemia: Status: Acute Code(s): E78.5 - Hyperlipidemia, unspecified (11) Aneurysm of left common iliac artery: Status: Acute Code(s): I72.3 - Aneurysm of iliac artery (12) Deep vein thrombosis: Status: Acute Code(s): I82.409 - Acute embolism and thrombosis of unspecified deep veins of unspecified lower extremity (13) Pulmonary embolism: Status: Acute Code(s): I26.99 - Other pulmonary embolism without acute cor pulmonale (14) COPD (chronic obstructive pulmonary disease): Status: Chronic Code(s): J44.9 - Chronic obstructive pulmonary disease, unspecified Plan 77 year old male with below past medical history hospitalized for syncope 2/2 vasovagal episode, complicated by acute respiratory failure with hypoxia 2/2 COPD exacerbation, complicated by moderately severe aortic stenosis, NSTEMI, hyponatremia, admitted to TCU with debility, here for rehabilitation, strengthening, prior to discharge home with . * Debility - PT/OT. * Pain - Tylenol 1000mg q6 prn pain (1-10). * Bowel - Miralax 17gm daily. * Adult immunization - Administer pneumonia vaccine, covid vaccine, flu vaccine as appropriate. * DVT prophylaxis - on Eilquis. * Hypertension- Coreg 6.25mg bid, Amlodipine 5mg daily. * DVT/PE - Eliquis 5mg bid. * Iron deficiency anemia - Ferrous sulfate 325mg daily. * COPD - Fluticasone 2 puffs bid. * GERD - Pantoprazole 20mg daily. * Hyperlipidemia - Rosuvastatin 40mg qhs. Medications at Discharge Home Medications omeprazole 20 mg capsule,delayed release 20 mg PO DAILY Check with primary doctor 04/29/21 rosuvastatin 40 mg tablet 40 mg PO QHS Check with primary doctor 04/29/21 apixaban 5 mg tablet (Eliquis) 5 mg PO BID blood thinner 30 days #60 tabs 05/17/21 mometasone 220 mcg/actuation(14 doses) breath activated powder inhaler (Asmanex Twisthaler) 2 inh inhalation BID lungs 09/20/23 amlodipine 5 mg tablet 5 mg PO DAILY 30 days #30 tabs 09/28/23 baclofen 10 mg tablet 10 mg PO TID 30 days #90 tabs 09/28/23 carvedilol 6.25 mg tablet 6.25 mg PO BID 30 days #60 tabs 09/28/23 ferrous sulfate 325 mg (65 mg iron) tablet (FeroSul) 325 mg PO DAILYCM 30 days #30 tabs 09/28/23 oxycodone 5 mg tablet 5 mg PO Q4H PRN PRN Pain Score 6-10 Or Pre Pt/Ot 7 days #42 tabs 09/28/23 tamsulosin 0.4 mg capsule 0.4 mg PO DAILY@1730 30 days #30 caps 09/28/23 Hospital Course Operations None Procedures None Summary of Care Provided Minutes Spent on Discharge: 35 Hospital Course: 77 year old male with below past medical history hospitalized for syncope 2/2 vasovagal episode, complicated by acute respiratory failure with hypoxia 2/2 COPD exacerbation, complicated by moderately severe aortic stenosis, NSTEMI, hyponatremia, admitted to TCU with debility, here for rehabilitation, strengthening, prior to discharge home with . Discharge home with 10/01/2023, [facility] PT/OT/SN. Physical Exam Const alert General Appearance: cooperative HEENT normocephalic Eyes PERRL and EOMs intact bilaterally Neck supple, no JVD and no carotid bruits Resp normal respiratory effort, normal air movement and clear to auscultation bilaterally Cardio regular rate and regular rhythm GI normal to inspection, nondistended, normoactive bowel sounds, non-tender and non-distended Extremity normal capillary refill General Extremity: Negative for edema Skin no rashes or lesions noted General Skin Exam: no breakdown Psych affect normal Appearance: appropriate Medical Records Data Medical Nutrition Assessment Dietitian: Malnutrition Criteria Met Start: 09/21/23 15:33 Freq: Status: Active Protocol: Document 09/21/23 15:33 SLA (Rec: 09/21/23 15:33 SLA Desktop) Nutrition Malnutrition Evidence of Malnutrition Exists Yes Malnutrition (severe): Acute Illness/Injury Evidenced By Suboptimal Energy Intake ( Severe),Weight Loss (Severe) Intake Problem Increased Nutrient Needs (specify) Etiology protein related to skin status Signs/Symptoms as evidenced by ulcer on L great toe Status Active Problem Clinical Problem Acute Disease or Injury Related Malnutrition Etiology related to acute illness and inadequate energy intake Signs/Symptoms as evidenced by 4.9% unintended wt loss and <75% po intake of 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 Status Active Problem Recommendation Dietitian Recommendations/Changes Continue liberal regular diet as ordered Add magic cup w/ lunch and dinner for increased nutrition if consumed Weight / BMI Weight Weight: 79.56 kg Body Mass Index (BMI) 25.9 ABG / Lab / Microbiology Data 09/28/23 05:15 09/28/23 05:15 Laboratory: Laboratory Results - last 24 hr 09/28/23 05:15: WBC 10.2, RBC 4.27 L, Hgb 15.4, Hct 45.4, MCV 106.3 H, MCH 36.1 H, MCHC 33.9, RDW Std Deviation 57.1 H, RDW Coeff of Lexi 14.6, Plt Count 146 L, MPV 10.2, Immature Gran % (Auto) 0.500, Neut % (Auto) 59.4, Lymph % (Auto) 25.8, [place] % (Auto) 11.3 H, Eos % (Auto) 2.5, Baso % (Auto) 0.5, Absolute Neuts (auto) 6.0, Absolute Lymphs (auto) 2.62, Nucleated RBC % 0, Sodium 136, Potassium 4.5, Chloride 106, Carbon Dioxide 25.0, Anion Gap 5, BUN 24 H, Creatinine 1.07, Estim Creat Clear Calc 55.06, Est GFR (MDRD) Af Amer 86, Est GFR (MDRD) Non-Af 71, BUN/Creatinine Ratio 22.4 H, Glucose 104, Calcium 8.5 D/C Instructions Discharge Diet: No restrictions Discharge Activity: Return to Normal Activity, May Shower and Use Walker Weight Bearing Status: Weight bearing as tolerated Call your doctor if you observe: Fever of 101 or Higher, Inability to urinate, Inability to have a bowel movement, Shortness of breath, Dizziness, Fainting spells, Swelling in the ankles, Chest pain and Uncontrolled pain Additional Instructions: Discharge home with 10/01/2023, [facility] PT/OT/SN. Meaningful Use Info Meaningful Use Diagnoses (Choose all that apply): None applicable Discharge Plan Admission Admit Date/Time: 09/20/23 18:10 Primary Reason for Your Visit: Debility. Attending Provider: Oh Stewart Chi Primary Care Provider: Itz Sevilla Instructions Additional Instructions / Restrictions: Discharge home with 10/01/2023, [facility] PT/OT/SN. Discharge Orders/Prescriptions Prescriptions: New carvedilol 6.25 mg Tablet 6.25 mg PO BID 30 Days Qty: 60 0RF amlodipine 5 mg Tablet 5 mg PO DAILY 30 Days Qty: 30 0RF tamsulosin 0.4 mg Capsule 0.4 mg PO DAILY@1730 30 Days Qty: 30 0RF baclofen 10 mg Tablet 10 mg PO TID 30 Days Qty: 90 0RF ferrous sulfate [FeroSul] 325 mg (65 mg iron) Tablet 325 mg PO DAILYCM 30 Days Qty: 30 0RF oxycodone 5 mg Tablet 5 mg PO Q4H PRN PRN (Reason: Pain Score 6-10 Or Pre Pt/Ot) 7 Days Qty: 42 0RF Continued omeprazole 20 mg Capsule,Delayed Release(Dr/Ec) 20 mg PO DAILY rosuvastatin 40 mg Tablet 40 mg PO QHS Eliquis 5 mg tablet 5 mg PO BID 30 Days Qty: 60 0RF Asmanex Twisthaler 220 mcg/ actuation (14) aerosol powdr breath activated 2 inh inhalation BID Discontinued ipratropium-albuterol 0.5 mg-3 mg(2.5 mg base)/3 mL Solution For Nebulization 3 ml INHALATION TID 30 Days Qty: 270 0RF Hold Instructions: Order Changed nitroglycerin 0.4 mg Tablet, Sublingual 0.4 mg SUBLINGUAL Q5M PRN (Reason: Chest Pain) 30 Days Qty: 30 0RF ipratropium-albuterol 0.5 mg-3 mg(2.5 mg base)/3 mL solution for nebulization 3 ml inhalation Q6H PRN (Reason: shortness of breath) 30 Days Qty: 360 0RF carvedilol 6.25 mg tablet 6.25 mg PO BID ferrous sulfate [FeroSul] 325 mg (65 mg iron) tablet 325 mg PO DAILY polyethylene glycol 3350 [Miralax] 17 gram/dose powder 17 g PO DAILY amlodipine [Norvasc] 5 mg tablet 5 mg PO DAILY Referrals / Follow Up: Itz Sevilla MD [Primary Care Provider] - Disposition Disposition (needs filled in before D/C Order can be placed): Home Health Service
--- NOTE | 2023-09-28 13:55 | CASEMGMT ---
Social Work SW met with patient at bedside to notify of [employer] insurance coverage; Patient received [facility] for effective end of service date for nursing home 09/30/23. Patient discharge has been initiated for 10/01/2023. Patient informed SW that he is agreeable to discharge plan on 10/01/23. SW discussed transition of care plans with patient. The patient would like [facility] for PT/OT/SN services in home. Patient has a history of home health care services being provided by [facility] in the past. SW contacted [facility] to notify of request for services. SW submitted referral via [facility] to [facility]; awaiting follow up; confirming acceptance for home health care services. Discharge: Home with Home Health SN/PT/OT CLIFF Morales
--- NOTE | 2023-09-28 14:31 | NURSING ---
Per 's orderfoley cath removed with no difficulty. Educated pt regarding monitoring urinary output
[2023-09-28 16:00] VITALS: BP 98/65; PULSE 73; RESP 16; TEMP 36.9; O2SAT 93
--- NOTE | 2023-09-28 16:10 | CASEMGMT ---
Social Work This worker telephoned [employer] for Dr. Marino to let them know of patient's DC date of 10/01/23. Liz scheduled follow up appt for pt. with Dr. Marino for October 02 at 10:10am. Pt can call and reschedule if that date/time doesn't work for him. This worker faxed discharge summary to Liz for Dr. Marino to review. KEIRA Flores
[2023-09-28] MEDS: Tamsulosin HCl 0.4 MG Capsule PO (17:37)
[2023-09-28] MEDS: ROSUVASTATIN CALCIUM 40 MG TABLET PO (21:54)
--- NOTE | 2023-09-29 04:27 | NURSING ---
patient reports plan to d/c sunday, but may not be agreeable to discharge if taveras catheter needs replaced, patient has needed straight cath x2 this shift due to continued urine retention. Note left for Dr. Stewart regarding urine retention and patient concern regarding discharge due to need for straight caths and Patient requesting consult with [facility] Urologist Dr. Naylor. Confidential VM left for SW regarding patient questions regarding discharge due to possible need for taveras reinsertion and spouse reservations regarding taveras care.
[2023-09-29] MEDS: Baclofen 10 MG Tablet PO ×3 (06:05→22:18)
[2023-09-29] MEDS: Nystatin Powder 15gm Bottle 1 APPLIC TOPICAL ×2 (08:09→22:19)
[2023-09-29] MEDS: Menthol/Lanolin/Calamine/Znox 113 GM Tube 1 APPLIC TOPICAL ×2 (08:09→22:19)
[2023-09-29] MEDS: Fluticasone Propionate 110 MCG AER.W.ADAP 2 PUFF INHALATION ×2 (08:09→22:19)
[2023-09-29 08:12] VITALS: BP 127/67; PULSE 85; RESP 18; O2SAT 95
[2023-09-29] MEDS: Pantoprazole Sodium 20 MG Tablet PO (08:13)
[2023-09-29] MEDS: amLODIPine 5 MG Tablet PO (08:13)
[2023-09-29] MEDS: Tamsulosin HCl 0.4 MG Capsule PO (08:13)
[2023-09-29] MEDS: APIXABAN 5 MG TABLET PO ×2 (08:14→22:18)
[2023-09-29] MEDS: Juven (unflavored) Packet 1 PACKET PO ×2 (08:14→16:58)
[2023-09-29] MEDS: Carvedilol 6.25 MG Tablet PO ×2 (08:14→22:18)
[2023-09-29] MEDS: Ferrous Sulfate 325 MG Tablet PO (08:14)
[2023-09-29 16:12] VITALS: TEMP 36.4
[2023-09-29] MEDS: ROSUVASTATIN CALCIUM 40 MG TABLET PO (22:18)
[2023-09-29] MEDS: oxyCODONE 5 MG Tablet PO (22:18)
[2023-09-30] MEDS: Acetaminophen 500 MG Tablet 1000 MG PO (04:04)
[2023-09-30] MEDS: Baclofen 10 MG Tablet PO ×3 (05:55→21:31)
[2023-09-30 05:56] VITALS: BP 111/63; PULSE 75
--- NOTE | 2023-09-30 06:00 | NURSING ---
pt up numerous times in the night to urinate, pts brief also wet, pt has intermittent confusion at times. PT did not sleep at night
--- NOTE | 2023-09-30 07:43 | NURSING ---
Pt calls to void and recently attempted approximated 45 minutes ago. Bladder scan for 216ml. Moderate amount of urine in attends. Took pt to bathroom. Waited approximately 10 minutes and pt was voiding small amounts of urine. informed dayshift staff pt remained in toilet and will need to be scanned post-void to continue to monitor residuals.
[2023-09-30 09:14] VITALS: BP 116/66; PULSE 81; RESP 18; TEMP 36.3; O2SAT 94
[2023-09-30] MEDS: Pantoprazole Sodium 20 MG Tablet PO (09:16)
[2023-09-30] MEDS: amLODIPine 5 MG Tablet PO (09:16)
[2023-09-30] MEDS: Juven (unflavored) Packet 1 PACKET PO ×2 (09:16→17:53)
[2023-09-30] MEDS: Polyethylene Glycol 3350 17 GM PACKET PO (09:16)
[2023-09-30] MEDS: Ferrous Sulfate 325 MG Tablet PO (09:17)
[2023-09-30] MEDS: Carvedilol 6.25 MG Tablet PO ×2 (09:17→21:31)
[2023-09-30] MEDS: APIXABAN 5 MG TABLET PO ×2 (09:18→21:31)
[2023-09-30] MEDS: Fluticasone Propionate 110 MCG AER.W.ADAP 2 PUFF INHALATION ×2 (09:18→21:33)
[2023-09-30] MEDS: Menthol/Lanolin/Calamine/Znox 113 GM Tube 1 APPLIC TOPICAL ×2 (09:18→21:31)
[2023-09-30] MEDS: Nystatin Powder 15gm Bottle 1 APPLIC TOPICAL ×2 (09:19→21:32)
--- NOTE | 2023-09-30 10:55 | NURSING ---
HS shift reports pt has had increased frequency, urgency, and incontinence throughout the night, as well as confusion. Pt continues with confusion this morning, as well as frequency and urgency. Vitals: bp-116/66, p-81, t-97.4, r-18, sp02-94% on room air. Denies dysuria. Continues with voiding ~100-150mL, bladder scans ~200mL post-void. Called and notified Dr. Stewart of urine retention [taveras was d/c on 09/27, currently on voiding trials], and increased confusion, urgency/frequency/incontinence. Received new orders for taveras catheter and UA w/ C&S.
--- NOTE | 2023-09-30 11:54 | NURSING ---
Addendum entered by Arin Biggs 09/30/23 14:30: Awaiting UA results. Pt present at bedside and expressing concern about pt discharging home with taveras catheter, asking if pt can stay at hospital longer d/t not wanting/knowing how to care for at home. Educated pt/ regarding catheter care/placement/emptying. Also informed that I did mention family concerns to Dr. Stewart, who states that discharge date is still planned for tomorrow. Pt and thankful for education. verbalizes and demonstrates understanding of catheter care/management. Original Note: Placed 16fr catheter, used 10mL NS to inflate balloon. Pt tolerated well. Cloudy yellow urine draining, approximately 350mL noted to catheter bag within several minutes of placement. Obtained urine sample, will send to pharmacy once supplies are tubed to unit.
[2023-09-30 15:03] LABS: Bacteria 0 SEEN /hpf (None Seen); Mucous, Urine 0 SEEN /hpf (<or=2+); Red Blood Cells-Urine 0 SEEN /hpf (0-5); Squamous Epithelial Cells - UA 0 SEEN /hpf (0-5)
[2023-09-30 15:09] LABS: Color, Urine Yellow (Yellow); Glucose, Dipstick Normal (Normal); Ketone-Dipstick Negative (Negative); Leukocyte Esterase-Dipstick 500 /ul (Negative); Nitrite-Dipstick Negative (Negative); Occult Blood-Urine 250 /ul (Negative); Protein-Dipstick 100 mg/dl (Negative); Urine Bilirubin Dipstick Negative (Negative); Urine Clarity Cloudy (Clear); Urine Urobilinogen Normal (Normal); Urine pH 6.5 (5.0 - 8.0)
[2023-09-30 15:23] LABS: White Blood Cells >100 SEEN /hpf (0-5)
--- NOTE | 2023-09-30 16:05 | NURSING ---
Reviewed urine result with Dr. Stewart. New order with read back for Cipro 250mg PO BID x7 days, start now.
[2023-09-30] MEDS: Ciprofloxacin 250 MG Tablet PO ×2 (16:45→21:31)
--- NOTE | 2023-09-30 17:15 | NURSING ---
Dr. Stewart entered orders to increase Flomax to 0.8mg daily and schedule office appt with Dr. Blank in [address] Blank office information to pt's discharge summary, will be given with discharge paperwork tomorrow. Called and updated pt's , who is thankful for update and states she will call Dr. Blank's office after d/c tomorrow to schedule appt. Pt and in agreement with plan of care at this time, no further comments/concerns.
[2023-09-30] MEDS: Tamsulosin HCl 0.4 MG Capsule 0.8 MG PO (17:53)
[2023-09-30] MEDS: ROSUVASTATIN CALCIUM 40 MG TABLET PO (21:31)
[2023-09-30 21:36] VITALS: BP 108/48; PULSE 77
[2023-10-01] MEDS: Acetaminophen 500 MG Tablet 1000 MG PO (00:02)
[2023-10-01] MEDS: Baclofen 10 MG Tablet PO (05:27)
--- NOTE | 2023-10-01 09:29 | CASEMGMT ---
Social Work This worker met with patient and discussed discharge plans for today. Pt stated understanding of need to go home with catheter in place and stated nursing did some teaching with him and and they are not concerned about this. Pt will have home health. This worker completed MDS interview for DC. BIMS PHQ2 0/2. KEIRA Flores
[2023-10-01 09:30] VITALS: BP 128/65; PULSE 73
[2023-10-01] MEDS: Pantoprazole Sodium 20 MG Tablet PO (09:38)
[2023-10-01] MEDS: APIXABAN 5 MG TABLET PO (09:38)
[2023-10-01] MEDS: Carvedilol 6.25 MG Tablet PO (09:38)
[2023-10-01] MEDS: amLODIPine 5 MG Tablet PO (09:38)
[2023-10-01] MEDS: Ciprofloxacin 250 MG Tablet PO (09:38)
[2023-10-01] MEDS: Ferrous Sulfate 325 MG Tablet PO (09:38)
[2023-10-01] MEDS: Juven (unflavored) Packet 1 PACKET PO (09:38)
[2023-10-01] MEDS: Nystatin Powder 15gm Bottle 1 APPLIC TOPICAL (09:38)
[2023-10-01] MEDS: Fluticasone Propionate 110 MCG AER.W.ADAP 2 PUFF INHALATION (09:39)
[2023-10-01] MEDS: Menthol/Lanolin/Calamine/Znox 113 GM Tube 1 APPLIC TOPICAL (09:45)
[2023-10-01 11:00] VITALS: RESP 18; TEMP 36.4; O2SAT 94
--- NOTE | 2023-10-01 11:21 | CASEMGMT ---
Social Work SW received a call from [facility] confirming start of care date 10/02/2023 for RN/PT/OT. Patient anticipates discharge home on 10/01/2023 with and home health care services via [facility] RN/PT/OT. CLIFF Morales
--- NOTE | 2023-10-03 14:39 | MDS.RN ---
Information for the mds was obtained from review of the clinical record, interview of resident, staff, and direct observation of resident's care.
== END 2023-10-01 11:45 | disposition home health service (06) | DRG 190 ==
PROVIDERS: Admitting Provider Family Medicine Geriatric Medicine; PCP Internal Medicine; Referring Provider Family Medicine Geriatric Medicine; Visit Provider Family Medicine Geriatric Medicine
DX: J44.1 Chronic obstructive pulmonary disease with (acute) exacerbation (principal); I21.4 Non-ST elevation (NSTEMI) myocardial infarction; I26.99 Other pulmonary embolism without acute cor pulmonale; E87.1 Hypo-osmolality and hyponatremia; N39.0 Urinary tract infection, site not specified; I72.3 Aneurysm of iliac artery; D50.9 Iron deficiency anemia, unspecified; I10 Essential (primary) hypertension; I35.0 Nonrheumatic aortic (valve) stenosis; I25.10 Atherosclerotic heart disease of native coronary artery without angina pectoris; K21.9 Gastro-esophageal reflux disease without esophagitis; E78.5 Hyperlipidemia, unspecified; R55 Syncope and collapse; Z79.51 Long term (current) use of inhaled steroids; Z79.01 Long term (current) use of anticoagulants; Z87.891 Personal history of nicotine dependence; Z79.899 Other long term (current) drug therapy; Z86.718 Personal history of other venous thrombosis and embolism; S91.102D Unspecified open wound of left great toe without damage to nail, subsequent encounter; X58.XXXD Exposure to other specified factors, subsequent encounter
CPT/HCPCS: 36415; 80048; 80061; 81001; 85025; 87077; 87086; 87088; 87186; 97110; 97112; 97116; 97162; 97166; 97530; 97535; 97802

== ENCOUNTER 2023-11-12 15:48 | Outpatient (RCR) | payer MEDICARE, SELFPAY ==
[2023-11-12 16:43] LABS: Color, Urine Yellow (Yellow); Glucose, Dipstick Normal (Normal); Ketone-Dipstick Negative (Negative); Leukocyte Esterase-Dipstick Negative /ul (Negative); Nitrite-Dipstick Negative (Negative); Occult Blood-Urine 10 /ul (Negative); Protein-Dipstick 15 mg/dl (Negative); Urine Clarity Clear (Clear); Urine Urobilinogen Normal (Normal)
[2023-11-12 16:49] LABS: Urine Bilirubin Dipstick 1 mg/dL (Negative)
== END 2023-11-23 23:59 ==
LOC: HHLAB 15:48
PROVIDERS: PCP Internal Medicine; Referring Provider Family Medicine; Visit Provider Family Medicine
DX: J44.1 Chronic obstructive pulmonary disease with (acute) exacerbation (principal)
CPT/HCPCS: 81002; 87086

== ENCOUNTER 2023-12-13 16:07 | Inpatient (IN) | payer MEDICARE, SELFPAY ==
[2023-12-13 16:14] VITALS: BP 105/65; PULSE 84; RESP 19; TEMP 36.3; O2SAT 95; BMI 25.5
[2023-12-13] MEDS: oxyCODONE 5 MG Tablet PO ×2 (18:02→21:11)
[2023-12-13] MEDS: Tamsulosin HCl 0.4 MG Capsule PO (18:05)
--- NOTE | 2023-12-13 19:48 | PCM.HP.STD ---
HPI - General General Date of Admission: 12/13/23 Date of Service: 12/13/23 Chief Complaint: Here for rehabilitation. HPI Narrative DURGA FARRELL, is a 78 Male who presents with followin11/14/2023 TAVR at [facility]. 11/26/2023 Dr. Brower recommends left fem fem bypass, left great toe dry gangrene. 12/07/2023 Dr. Brower performs left fem fem bypass graft, bilateral staple line prevena wound VAC. Left great toe amputation with metatarsal head. 12/07/2023 Surgical culture growing skin niall, pseudomonas. 12/09/2023 Infectious Disease recommended Zosyn IV for dry gangrene left toe. 12/11/2023 No events, oxygen 2 liters nasal cannula. PT/OT SNF. Aspirin/Statin/Eliquis. Continue Zosyn IV then PO antibiotics, surgical culture from amputated left great toe. 12/12/2023 Oxygen 2 liters per nasal cannula, wean oxygen. Aspirin/Statin/Eliquis, Finished antibiotic course. PT/OT. Await SNF. 12/13/2023 Oxygen 2 liters per nasal cannula. Regular diet. 12/13/2023 Admit to TCU with debility, here for rehabilitation, strengthening, prior to discharge home with . [facility] Medical History (Updated 12/13/23 @ 20:[address] Oh Stewart MD) Deep vein thrombosis Hyperlipidemia Hypertension Gastroesophageal reflux disease Peripheral arterial occlusive disease Coronary artery disease Lumbar spinal stenosis Elevated troponin Pulmonary embolism Pneumonia due to COVID-19 virus Acute respiratory failure with hypoxia Debility Home Medications ?Medication ?Instructions ?Recorded ?Last Taken ?Type omeprazole 20 mg capsule,delayed 20 mg PO DAILY Check with primary 04/29/21 12/13/23 History release doctor rosuvastatin 40 mg tablet 40 mg PO QHS Check with primary 04/29/21 12/12/23 History doctor apixaban 5 mg tablet (Eliquis) 5 mg PO BID blood thinner 30 days 05/17/21 12/13/23 Rx #60 tabs carvedilol 6.25 mg tablet 6.25 mg PO BID BP 30 days #60 tabs 09/28/23 12/12/23 Rx oxycodone 5 mg tablet 5 mg PO Q4H PRN PRN Pain Score 09/28/23 12/13/23 Rx 6-10 Or Pre Pt/Ot 7 days #42 tabs tamsulosin 0.4 mg capsule 0.4 mg PO DAILY@1730 Urine 09/28/23 12/13/23 Rx retention 30 days #30 caps tamsulosin 0.4 mg capsule 0.8 mg (2 x 0.4 mg) PO DAILY@1730 09/30/23 12/13/23 Rx Bladder 30 days #60 caps albuterol sulfate 90 mcg/actuation 2 puff inhalation Q4H PRN PRN SOB 12/13/23 Unknown History aerosol inhaler baclofen 10 mg tablet 10 mg PO BID Muscle spasms 12/13/23 12/13/23 History finasteride 5 mg tablet 5 mg PO DAILY Prostate 12/13/23 12/13/23 History fluticasone propionate 50 1 spray intranasal DAILY SOB 12/13/23 Unknown History mcg/actuation nasal spray,suspension furosemide 20 mg tablet 40 mg PO DAILY Fluid retention 12/13/23 12/13/23 History losartan 25 mg tablet 25 mg PO DAILY BP 12/13/23 12/12/23 History nitroglycerin 0.4 mg sublingual 0.4 mg sublingual UD Chest pain 12/13/23 Unknown History tablet tiotropium 2.5 mcg-olodaterol 2.5 2 puff inhalation DAILY SOB 12/13/23 Unknown History mcg/actuation mist for inhalation (Stiolto Respimat) Allergy/AdvReac Type Severity Reaction Status Date / Time gabapentin AdvReac Severe mental Verified 09/20/23 18:59 status change atorvastatin AdvReac Unknown Other Verified 09/25/23 02:19 dextroamphetamine AdvReac Unknown PT UNSURE Verified 09/20/23 18:59 OF REACTION Surgical History (Updated 12/13/23 @ 20:[address] Oh Stewart MD) S/P IVC filter [place] teeth extracted S/P femoral-femoral bypass surgery History of carotid endarterectomy Hx of CABG History of lumbar fusion Social History household members: spouse Smoking Status: Former smoker alcohol intake: current alcohol intake frequency: a few times a week substance use type: does not use ROS Constitutional Constitutional: Reports weakness; Denies chills, fever(s) or weight gain ENT HEENT: Denies headache(s), nasal congestion or nasal discharge Cardiovascular Cardiovascular: Denies chest pain or palpitations Respiratory/Chest Respiratory/Chest: Denies cough, excessive phlegm production or shortness of breath with exertion Gastrointestinal Gastrointestinal: Denies abdominal pain, nausea or vomiting Genitourinary Genitourinary: Denies dysuria Musculoskeletal Musculoskeletal: Denies joint pain or joint swelling Integumentary Integumentary: Denies rash or wounds Neurologic Neurologic: Denies focal weakness, numbness or tingling Psychiatric Psychiatric: Denies anxiety, auditory hallucinations, depression, homicidal ideation or suicidal ideation Vital Signs Vital Signs Vital Signs: 12/13/23 16:14 Temperature 97.3 F L Temperature Source Temporal Pulse Rate 84 Respiratory Rate 19 H Blood Pressure 105/65 Blood Pressure Mean 78 Pulse Ox 95 Oxygen Delivery Method Nasal Cannula Oxygen Flow Rate (L/min) 2 Weight Weight: 78.5 kg Body Mass Index (BMI) 25.5 Physical Exam Const alert General Appearance: cooperative HEENT normocephalic Eyes PERRL and EOMs intact bilaterally Neck supple, no JVD and no carotid bruits Resp normal respiratory effort, normal air movement and clear to auscultation bilaterally Cardio regular rate and regular rhythm GI normal to inspection, nondistended, normoactive bowel sounds, non-tender and non-distended GI Narrative: Bilateral groin Prevena wound VAC. Extremity normal capillary refill Extremity Narrative: Left lower extremity dressed. General Extremity: Negative for edema Skin no rashes or lesions noted General Skin Exam: no breakdown Psych affect normal Appearance: appropriate Assessment & Plan Assessment/Plan (1) Debility: (2) Peripheral vascular disease: (3) Dry gangrene: (4) S/P femoral-femoral bypass surgery: (5) Status post amputation of left great toe: (6) COPD (chronic obstructive pulmonary disease): (7) History of transcatheter aortic valve replacement (TAVR): (8) Essential (primary) hypertension: (9) Deep vein thrombosis: (10) Iron deficiency anemia: (11) Gastroesophageal reflux disease: (12) Hyperlipidemia: PLAN: Plan 78 year old male with below past medical history hospitalized for peripheral vascular disease, underwent left fem fem bypass surgery, left great toe amputation 12/07/[address] Brower, admitted to TCU with debility, here for rehabilitation, strengthening, prior to discharge home with . Debility - PT/OT. Pain - Tylenol 1000mg q6 prn pain (1-3), Oxycodone 5mg q4 prn pain (4-10). Bowel - Miralax 17gm daily, senna/colace 2 tablets bid, Magnesium citrate 300ml daily prn. Adult immunization - Administer pneumonia vaccine, covid vaccine, flu vaccine as appropriate. DVT prophylaxis - on Eliquis. COPD - Incruse 1 puff daily, Albuterol 2 puffs q4h prn. DVT/PE/PVD - Eliquis 5mg bid. Muscle spasm - Baclofen 5mg bid. Coronary artery disease - Coreg 6.25mg bid, Losartan 25mg daily, Eliquis 5mg bid, NTG 0.4mg sl q5m prn. Nutrition - Ensure Plus 120mL po tidcm. BPH - Finasteride 5mg daily, Tamsulosin 0.4mg daily. Allergic rhinitis - Fluticasone 0.5% 1 spray nasal daily. Edema - Furosemide 40mg daily. GERD - Pantoprazole 20mg daily. Hyperlipidemia - Rosuvastatin 40mg qhs.
[2023-12-13 21:06] VITALS: BP 112/64; PULSE 80
[2023-12-13] MEDS: Carvedilol 6.25 MG Tablet PO (21:07)
[2023-12-13] MEDS: APIXABAN 5 MG TABLET PO (21:07)
[2023-12-13] MEDS: ROSUVASTATIN CALCIUM 40 MG TABLET PO (21:07)
[2023-12-13] MEDS: Baclofen 10 MG Tablet 5 MG PO (21:08)
[2023-12-13] MEDS: Senna/Docusate Sodium 1 Tablet 2 TABLET PO (21:08)
[2023-12-13] MEDS: 0.9% Saline Lock 10 ML Syringe IV (21:12)
[2023-12-13 22:00] VITALS: PULSE 78; RESP 19; O2SAT 96
[2023-12-14] MEDS: oxyCODONE 5 MG Tablet PO ×5 (01:46→20:46)
[2023-12-14] MEDS: Acetaminophen 500 MG Tablet 1000 MG PO ×3 (02:18→20:35)
[2023-12-14 06:05] LABS: Absolute Lymphocyte Count 2.13 X10^3/uL (0.83-4.51); Absolute Neutrophil Count 7.4 X10^3/uL (2.0-7.7); Basophil# 0.04 X10^3/uL; Basophil% 0.4 % (0-1); Eosinophil# 0.29 X10^3/uL; Eosinophils% 2.6 % (0-5); Hematocrit 31.6 % (40-54); Hemoglobin 10.2 g/dL (13.0-16.5); Lymphocyte # 2.13 X10^3/ul (0.83-4.51); Lymphocyte % 19.3 % (19-41); Mean Corp Hgb Conc 32.3 g/dL (32-36); Mean Corpuscular Hgb 35.2 pg (27.0-32.0); Mean Platelet Vol. 9.8 fl (6.2-12.0); Monocyte# 1.12 X10^3/uL; Monocyte% 10.1 % (0-10); NRBC Flagged by Analyzer 0 % (0-5); Neutrophil # 7.37 X10^3/uL (2.7-7.7); Neutrophil % 66.7 % (47-70); Platelet Count 177 K/mm3 (150-450); RBC Distribution Width CV 15.1 % (11.6-14.6); White Blood Count 11.1 K/mm3 (4.4-11.0)
[2023-12-14 06:18] LABS: Anion Gap 5 (5-15); BUN 33 mg/dL (7-18); BUN/Creat Ratio 40.4 RATIO (10-20); Calcium,Total 8.6 mg/dL (8.5-10.1); Chloride 105 mmol/L (98-107); Creatinine, Serum 0.82 mg/dL (0.70-1.30); EST Glomerular Filtration Rate 97 mL/min (>60); Est Glom Filt Rate - Afr Amer 117 mL/min (>60); Estimated Creatinine Clearance 71.85 ml/min; Glucose 103 mg/dL (74-106); Potassium 3.7 mmol/L (3.5-5.1); Sodium Level 136 mmol/L (136-145)
--- NOTE | 2023-12-14 08:00 | PHA.CONS_ITS ---
Documented by User: Reilly Corley 12/14/23 08:17 TCU RX Drug Regimen Review Subjective/Objective Subjective/Objective: Subjective: TCU admission note. This is an 78 year old male who was hospitalized for peripheral vascular disease, underwent left fem fem bypass surgery, left great toe amputation 12/07/[address] Brower, admitted to TCU with debility, here for rehabilitation, strengthening, prior to discharge home with . Objective: Allergies gabapentin Adverse Reaction (Severe, Verified 09/20/23 18:59) mental status change atorvastatin Adverse Reaction (Unknown, Verified 09/25/23 02:19) Other vivid dreams and disorientation dextroamphetamine Adverse Reaction (Unknown, Verified 09/20/23 18:59) PT UNSURE OF REACTION Current Medications Generic Name Dose Route Start Last Admin Trade Name Freq PRN Reason Stop Dose Admin Acetaminophen 1,000 mg 12/13/23 20:16 12/14/23 02:18 Acetaminophen 500 Mg Tablet PO 1,000 mg Q6H PRN PRN Administration Pain Score 1-3 Albuterol Sulfate 2 puff 12/13/23 16:32 Albuterol Ih (6.7 Gm) 1 Puff Inhaler INHALATION Q4H PRN PRN SHORTNESS OF BREATH Apixaban 5 mg 12/13/23 22:00 12/13/23 21:07 Apixaban 5 Mg Tablet PO 5 mg BID VIOLET Administration Baclofen 5 mg 12/13/23 22:00 12/13/23 21:08 Baclofen 10 Mg Tablet PO 5 mg BID VIOLET Administration Carvedilol 6.25 mg 12/13/23 22:00 12/13/23 21:07 Carvedilol 6.25 Mg Tablet PO 6.25 mg BID VIOLET Administration Protocol Finasteride 5 mg 12/14/23 10:00 Finasteride 5 Mg Tablet PO DAILY VIOLET Fluticasone Propionate 1 spray 12/14/23 10:00 Fluticasone 0.05% 1 [place] Nasal.Sry NASAL DAILY VIOLET Furosemide 40 mg 12/14/23 10:00 Furosemide 40 Mg Tablet PO DAILY VIOLET Protocol Losartan Potassium 25 mg 12/14/23 10:00 Losartan Potassium 25 Mg Tablet PO DAILY VIOLET Protocol Magnesium Citrate 300 ml 12/13/23 20:15 Magnesium Citrate 300 Ml PO DAILY PRN Constipation Nitroglycerin 0.4 mg 12/13/23 17:41 Nitroglycerin (Inpatient Use) 0.4 Mg Tab.Subl SL Q5M PRN CARDIAC/CHEST PAIN Nutritional Formula (Lactose Free) 120 ml 12/14/23 07:45 Ensure Plus High Protein 120 Ml Liquid PO TIDCM [facility] Oxycodone HCl 5 mg 12/13/23 20:16 12/14/23 05:35 Oxycodone 5 Mg Tablet PO 5 mg Q4H PRN PRN Administration Pain Score 4-10 or Pre PT/OT Pantoprazole Sodium 20 mg 12/14/23 10:00 Pantoprazole Sodium 20 Mg Tablet PO DAILY [facility] Polyethylene Glycol 17 gm 12/14/23 10:00 Polyethylene Glycol 3350 17 Gm Packet PO DAILY [facility] Rosuvastatin Calcium 40 mg 12/13/23 22:00 12/13/23 21:07 Rosuvastatin Calcium 40 Mg Tablet PO 40 mg QHS [facility] Administration Senna/Docusate Sodium 2 tablet 12/13/23 22:00 12/13/23 21:08 Senna/Docusate Sodium 1 Tablet PO 2 tablet BID [facility] Administration Sodium Chloride 10 - 40 ml 12/13/23 16:34 12/13/23 21:12 0.9% Saline Lock 10 Ml Syringe IV 10 ml UD PRN Administration SALINE FLUSH Tamsulosin HCl 0.4 mg 12/13/23 17:30 12/13/23 18:05 Tamsulosin Hcl 0.4 Mg Capsule PO 0.4 mg DAILY@1730 VIOLET Administration Tuberculin PPD 0.1 ml 12/14/23 10:00 Tuberculin,Purif.Prot.Deriv. 50 Tu/Ml Vial ID 12/14/23 10:01 X1 ONE Tuberculin PPD 0.1 ml 12/21/23 10:00 Tuberculin,Purif.Prot.Deriv. 50 Tu/Ml Vial ID 12/21/23 10:01 X1 ONE Umeclidinium/Vilanterol 1 puff 12/14/23 10:00 Umeclidinium Brm/Vilanterol 62.5-25 Mcg Inh INHALATION DAILY [facility] Problem List Iron deficiency anemia (Acute) Essential (primary) hypertension (Acute) History of transcatheter aortic valve replacement (TAVR) (Acute) Status post amputation of left great toe (Acute) S/P femoral-femoral bypass surgery (Acute) Dry gangrene (Acute) Peripheral vascular disease (Acute) COPD (chronic obstructive pulmonary disease) (Chronic) Debility (Acute) Deep vein thrombosis (Acute) Hyperlipidemia (Acute) Gastroesophageal reflux disease (Acute) Vital Signs Temp Pulse Resp BP Pulse Ox O2 Del Method O2 Flow Rate 97.3 F L 78 19 H 112/64 96 Nasal Cannula 2 12/13/23 16:14 12/13/23 22:00 12/13/23 22:00 12/13/23 21:06 12/13/23 22:00 12/13/23 22:00 12/13/23 16:14 Oxygen Flow Rate (L/min) 2 Oxygen Delivery Method Nasal Cannula Weight: 78.5 kg Body Mass Index (BMI) 25.5 Sodium 136 mmol/L (136-145) 12/14/23 05:10 Potassium 3.7 mmol/L (3.5-5.1) 12/14/23 05:10 Chloride 105 mmol/L (98-107) 12/14/23 05:10 Carbon Dioxide 26.0 mmol/L (21.0-32.0) 12/14/23 05:10 Anion Gap 5 (5-15) 12/14/23 05:10 BUN 33 mg/dL (7-18) H 12/14/23 05:10 Creatinine 0.82 mg/dL (0.70-1.30) 12/14/23 05:10 Est GFR (MDRD) Af Amer 117 mL/min (>60) 12/14/23 05:10 Est GFR (MDRD) Non-Af 97 mL/min (>60) 12/14/23 05:10 BUN/Creatinine Ratio 40.4 RATIO (10-20) H 12/14/23 05:10 Glucose 103 mg/dL (74-106) 12/14/23 05:10 Assessment/Plan: 1. Pain: acetaminophen 1000 mg PO Q6H PRN pain (1-3), oxycodone 5 mg PO Q4H PRN pain (4-10). The patient has used 1 dose of PRN acetaminophen and 3 doses of PRN oxycodone so far this admission. Please continue to monitor pain levels, PRN medication usage, LFTs (no recent LFTs documented), for constipation, drowsiness/dizziness, syncope/ataxia/falls, and respiratory depression. The patient has only been on TCU since last evening and has already used 3 doses of PRN oxycodone. Please consider scheduling acetaminophen 1000 mg PO Q8H to try to stay ahead of pain levels and decrease the need for oxycodone doses if clinically appropriate. 2. Bowel: polyethylene glycol 17 grams PO daily, senna/docusate 2 tablets PO BID, magnesium citrate 300 mL PO daily PRN constipation. The patient has not required any PRN doses of magnesium citrate so far this admission, and does not have a documented bowel movement so far this admission. Please continue to monitor for bowel movements, PRN medication usage, constipation and diarrhea. 3. DVT/PE/PVD/CAD/Edema: nitroglycerin 0.4 mg SL Q5M PRN chest pain, apixaban 5 mg PO BID, carvedilol 6.25 mg PO BIDCM, furosemide 40 mg PO daily, losartan 25 mg PO daily. The patient has not required any PRN doses of nitroglycerin so far this admission. Please continue to monitor for chest pain, s/s of DVT/PE such as shortness of breath, pain/erythema/edema in and extremity, as well as for s/s of bleeding/excessive bruising, hemoglobin levels (Hgb = 10.2 g/dL on 12/14/23), platelet count (Plt = 177 K/mm3 on 12/14/23), serum creatinine (Scr = 0.82 mg/dL on 12/14/23), blood pressures (recent range = 105-112/64-65 mmHg), heart rates (recent range = 78-84 BPM), s/s of dehydration, renal function (Scr = 0.82 with creatinine clearance ~ 72 mL/min on 12/14/23), potassium levels (K = 3.7 mmol/L on 12/14/23), sodium levels (Na = 136 mmol/L on 12/14/23), and for dizziness. 4. COPD: umeclidinium/vilanterol 1 puff PO daily, albuterol 2 puffs Q4H PRN shortness of breath. The patient has not required any PRN doses of albuterol so far this admission. Please continue to monitor for shortness of breath, PRN medication usage, s/s of COPD exacerbation such as increased cough and sputum production, for palpitations, and for dry mouth, dry eyes and constipation. 5. Muscle spasms: baclofen 5 mg PO BID. Please continue to monitor for muscle spasms, for nausea/vomiting, asthenia, confusion, dizziness and drowsiness. 6. BPH: finasteride 5 mg PO daily, tamsulosin 0.4 mg PO daily. Please continue to monitor for urinary retention and urine stream as well as for s/s of orthostasis. 7. GERD: pantoprazole 20 mg PO daily. Please continue to monitor for s/s of GERD, for diarrhea that could indicate clostridium difficile infection as well as for s/s of bone resorption issues such as fractures. 8. Hyperlipidemia: rosuvastatin 40 mg PO QHS. Please continue to monitor lipid levels (cholesterol = 118 mg/dL with LDL = 72 mg/dL on 09/22/23), LFTs (no recent LFTs documented) as well as for myalgias. 9. Allergic rhinitis: fluticasone 0.05% 1 spray in each nostril daily. Please continue to monitor for s/s of allergic rhinitis, and for nose bleeds. 10. Nutrition: ensure plush high protein 120 mL PO TIDCM. Please continue to monitor overall nutritional status. Assessment/Plan for indications treated with psychotropic medications: NA Medical chart and medication regimen reviewed. The following medication irregularities or issues were identified: 1. Pain: acetaminophen 1000 mg PO Q6H PRN pain (1-3), oxycodone 5 mg PO Q4H PRN pain (4-10). The patient has only been on TCU since last evening and has already used 3 doses of PRN oxycodone. Please consider scheduling acetaminophen 1000 mg PO Q8H to try to stay ahead of pain levels and decrease the need for oxycodone doses if clinically appropriate. Date Date of Note:: 12/14/23 Documented by User: Dr. Oh Stewart MD 12/14/23 08:18 TCU RX Drug Regimen Review Provider Comments Provider responsibility Provider Comments to Recommendations by Pharmacy: Agree
[2023-12-14] MEDS: Fluticasone 0.05% 1 SPRAY NASAL.SRY NASAL (08:21)
[2023-12-14] MEDS: Baclofen 10 MG Tablet 5 MG PO (08:21)
[2023-12-14] MEDS: Ensure Plus High Protein 120 ML LIQUID PO ×3 (08:21→17:15)
[2023-12-14] MEDS: APIXABAN 5 MG TABLET PO ×2 (08:21→20:37)
[2023-12-14] MEDS: Umeclidinium Brm/Vilanterol 62.5-25 mcg Inh 1 PUFF INHALATION (08:21)
[2023-12-14] MEDS: Furosemide 40 MG Tablet PO (08:21)
[2023-12-14] MEDS: Carvedilol 6.25 MG Tablet PO ×2 (08:21→20:38)
[2023-12-14] MEDS: Finasteride 5 MG Tablet PO (08:22)
[2023-12-14] MEDS: Polyethylene Glycol 3350 17 GM PACKET PO (08:22)
[2023-12-14] MEDS: Senna/Docusate Sodium 1 Tablet 2 TABLET PO ×2 (08:22→20:38)
[2023-12-14] MEDS: Pantoprazole Sodium 20 MG Tablet PO (08:22)
[2023-12-14] MEDS: Tuberculin,Purif.prot.deriv. 50 TU/ML Vial 0.1 ML ID (09:02)
[2023-12-14] MEDS: Losartan Potassium 25 MG Tablet PO (09:19)
[2023-12-14 09:56] VITALS: BP 129/67; PULSE 78; RESP 16; TEMP 36.6; O2SAT 95
--- NOTE | 2023-12-14 13:52 | WOUNDNOTE ---
wound photo: right groin
--- NOTE | 2023-12-14 13:52 | WOUNDNOTE ---
wound photo: left groin
--- NOTE | 2023-12-14 13:53 | WOUNDNOTE ---
wound photo: left foot
--- NOTE | 2023-12-14 13:54 | WOUNDNOTE ---
Called and talked with the Vascular surgeons (Dr Maria) office to fond out when the Prevena VAC's should be removed from bilateral groin incisions. The VAC's were placed on 12/07/23 so they should be removed today. Orders received to remove them. Bilateral Prevena VAC's removed at this time. Incisions are well approximated with sahra. no drainage noted. can leave incisions CLINICAL SUPPORT SPECIALIST. if drainage noted, can apply dry dressings prn. Pt tolerated well. see wound photos.
[2023-12-14] MEDS: diazePAM 5 MG Tablet PO (14:39)
[2023-12-14 15:54] VITALS: O2SAT 93
--- NOTE | 2023-12-14 16:34 | CASEMGMT ---
Social Work SW met with pt and introduced self and role of SW. Initial assessment completed, contacts and code status verified - pt wishes to be full code. SW educated pt on [employer] Medicare benefit and that NRD is 7/2 and continued stay is not guaranteed. Pt's goal is to return home with his . SW will continue to follow for dc planning and support. KEIRA Lion
[2023-12-14] MEDS: Tamsulosin HCl 0.4 MG Capsule PO (17:15)
[2023-12-14] MEDS: Juven (unflavored) Packet 1 PACKET PO (17:15)
[2023-12-14] MEDS: ROSUVASTATIN CALCIUM 40 MG TABLET PO (20:37)
[2023-12-14] MEDS: Baclofen 10 MG Tablet PO (20:37)
[2023-12-14 21:30] VITALS: BP 118/53; PULSE 83; O2SAT 93
[2023-12-15] MEDS: oxyCODONE 5 MG Tablet PO ×3 (03:41→21:39)
[2023-12-15] MEDS: 0.9% Saline Lock 10 ML Syringe IV ×2 (03:43→21:42)
[2023-12-15] MEDS: diazePAM 5 MG Tablet PO (04:35)
[2023-12-15] MEDS: Acetaminophen 500 MG Tablet 1000 MG PO ×3 (06:17→21:47)
[2023-12-15] MEDS: Baclofen 10 MG Tablet PO ×3 (06:17→21:46)
[2023-12-15 07:00] VITALS: O2SAT 94
[2023-12-15] MEDS: Ensure Plus High Protein 120 ML LIQUID PO ×3 (08:50→16:56)
[2023-12-15] MEDS: Polyethylene Glycol 3350 17 GM PACKET PO (08:50)
[2023-12-15] MEDS: APIXABAN 5 MG TABLET PO ×2 (08:50→21:46)
[2023-12-15] MEDS: Losartan Potassium 25 MG Tablet PO (08:50)
[2023-12-15] MEDS: Juven (unflavored) Packet 1 PACKET PO ×2 (08:50→16:56)
[2023-12-15] MEDS: Fluticasone 0.05% 1 SPRAY NASAL.SRY NASAL (08:50)
[2023-12-15] MEDS: Carvedilol 6.25 MG Tablet PO ×2 (08:50→21:44)
[2023-12-15] MEDS: Furosemide 40 MG Tablet PO (08:50)
[2023-12-15] MEDS: Umeclidinium Brm/Vilanterol 62.5-25 mcg Inh 1 PUFF INHALATION (08:50)
[2023-12-15] MEDS: Senna/Docusate Sodium 1 Tablet 2 TABLET PO ×2 (08:51→21:47)
[2023-12-15] MEDS: Pantoprazole Sodium 20 MG Tablet PO (08:51)
[2023-12-15] MEDS: Finasteride 5 MG Tablet PO (08:51)
[2023-12-15 10:23] VITALS: BP 103/56; PULSE 65; RESP 18; TEMP 36.6; O2SAT 98
[2023-12-15] MEDS: Tamsulosin HCl 0.4 MG Capsule PO (16:56)
[2023-12-15] MEDS: ROSUVASTATIN CALCIUM 40 MG TABLET PO (21:47)
[2023-12-15 22:00] VITALS: BP 108/63; PULSE 74; PULSE 76; O2SAT 96
[2023-12-16] MEDS: Baclofen 10 MG Tablet PO ×3 (05:10→20:12)
[2023-12-16] MEDS: Acetaminophen 500 MG Tablet 1000 MG PO ×3 (05:10→20:12)
[2023-12-16] MEDS: oxyCODONE 5 MG Tablet PO ×2 (05:10→22:31)
[2023-12-16 05:32] VITALS: PULSE 72; O2SAT 95
[2023-12-16 06:48] LABS: Hematocrit 32.3 % (40-54); Hemoglobin 10.7 g/dL (13.0-16.5)
[2023-12-16 07:10] VITALS: O2SAT 93
[2023-12-16 08:18] VITALS: BP 106/69; PULSE 89; RESP 18; TEMP 36.5; O2SAT 96
[2023-12-16] MEDS: Juven (unflavored) Packet 1 PACKET PO ×2 (08:21→17:16)
[2023-12-16] MEDS: Umeclidinium Brm/Vilanterol 62.5-25 mcg Inh 1 PUFF INHALATION (08:21)
[2023-12-16] MEDS: Losartan Potassium 25 MG Tablet PO (08:22)
[2023-12-16] MEDS: Carvedilol 6.25 MG Tablet PO ×2 (08:22→20:11)
[2023-12-16] MEDS: Fluticasone 0.05% 1 SPRAY NASAL.SRY NASAL (08:23)
[2023-12-16] MEDS: Furosemide 40 MG Tablet PO (08:23)
[2023-12-16] MEDS: APIXABAN 5 MG TABLET PO ×2 (08:23→20:12)
[2023-12-16] MEDS: Pantoprazole Sodium 20 MG Tablet PO (08:24)
[2023-12-16] MEDS: Polyethylene Glycol 3350 17 GM PACKET PO (08:24)
[2023-12-16] MEDS: Senna/Docusate Sodium 1 Tablet 2 TABLET PO ×2 (08:24→20:12)
[2023-12-16] MEDS: Finasteride 5 MG Tablet PO (08:24)
[2023-12-16] MEDS: Ensure Plus High Protein 120 ML LIQUID PO ×3 (08:26→17:16)
[2023-12-16] MEDS: Tamsulosin HCl 0.4 MG Capsule PO (17:16)
[2023-12-16 20:08] VITALS: BP 116/70; PULSE 85
[2023-12-16] MEDS: 0.9% Saline Lock 10 ML Syringe IV (20:10)
[2023-12-16] MEDS: ROSUVASTATIN CALCIUM 40 MG TABLET PO (20:11)
[2023-12-17] MEDS: Acetaminophen 500 MG Tablet 1000 MG PO ×3 (05:34→20:44)
[2023-12-17] MEDS: Baclofen 10 MG Tablet PO ×3 (05:34→20:43)
[2023-12-17] MEDS: oxyCODONE 5 MG Tablet PO ×2 (05:42→20:48)
[2023-12-17 07:16] VITALS: O2SAT 96
[2023-12-17] MEDS: Senna/Docusate Sodium 1 Tablet 2 TABLET PO ×2 (08:23→20:43)
[2023-12-17] MEDS: APIXABAN 5 MG TABLET PO ×2 (08:23→20:42)
[2023-12-17] MEDS: Juven (unflavored) Packet 1 PACKET PO ×2 (08:23→16:47)
[2023-12-17] MEDS: Losartan Potassium 25 MG Tablet PO (08:23)
[2023-12-17] MEDS: Fluticasone 0.05% 1 SPRAY NASAL.SRY NASAL (08:23)
[2023-12-17] MEDS: Finasteride 5 MG Tablet PO (08:23)
[2023-12-17] MEDS: Carvedilol 6.25 MG Tablet PO ×2 (08:23→20:41)
[2023-12-17] MEDS: Polyethylene Glycol 3350 17 GM PACKET PO (08:23)
[2023-12-17] MEDS: Furosemide 40 MG Tablet PO (08:23)
[2023-12-17] MEDS: Umeclidinium Brm/Vilanterol 62.5-25 mcg Inh 1 PUFF INHALATION (08:24)
[2023-12-17] MEDS: Ensure Plus High Protein 120 ML LIQUID PO ×3 (08:30→16:47)
[2023-12-17] MEDS: Pantoprazole Sodium 20 MG Tablet PO (08:34)
[2023-12-17 09:28] VITALS: BP 104/50; PULSE 75; RESP 20; TEMP 36.1; O2SAT 95
--- NOTE | 2023-12-17 09:50 | NURSING ---
Addendum entered by Lavern Painter 12/17/23 13:31: Patient discussed vaccine with and decided he'd like to take. Order placed. Original Note: Offered covid vaccine, VIS provided. Patient refuses at this time.
[2023-12-17 10:50] VITALS: O2SAT 96
--- NOTE | 2023-12-17 12:44 | WOUNDNOTE ---
wound photo: left foot
--- NOTE | 2023-12-17 12:44 | WOUNDNOTE ---
wound photo: left medial heel
--- NOTE | 2023-12-17 16:12 | CHAPLAIN ---
Type of Pastoral Visit _x__ Initial Visit ___ Follow-up Visit ___ On-call Visit ___ General Patient Visit ___ Spiritual Assessment ___ Family Conference ___ Bereavement ___ Rapid Response ___ Code Blue ___ Other (describe below) Pastoral Care Referral From _x__ Patient ___ Family ___ Nurse ___ Physician ___ Leak Detector ___ Rescue Instructor ___ Other (describe below) Sacrament/Intervention _x__ Active listening ___ Anointing ___ Jainism ___ Bereavement ___ Communion _x__ Loraine exploration ___ _x__ Life review _x__ Prayer ___ Reconciliation ___ Sacrament of Sick _x__ Supportive presence ___ Wedding ___ Other (describe below) Pastoral Comments patient is of the [employer] loraine and 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
[2023-12-17] MEDS: Tamsulosin HCl 0.4 MG Capsule PO (16:47)
[2023-12-17] MEDS: 0.9% Saline Lock 10 ML Syringe IV (20:38)
[2023-12-17] MEDS: ROSUVASTATIN CALCIUM 40 MG TABLET PO (20:42)
[2023-12-17 20:54] VITALS: BP 124/75; PULSE 79; O2SAT 97
[2023-12-17 21:00] VITALS: PULSE 72; O2SAT 97
[2023-12-18] MEDS: oxyCODONE 5 MG Tablet PO ×2 (03:29→22:35)
[2023-12-18] MEDS: Acetaminophen 500 MG Tablet 1000 MG PO ×3 (05:33→22:35)
[2023-12-18] MEDS: Baclofen 10 MG Tablet PO ×3 (05:33→22:35)
[2023-12-18] MEDS: Juven (unflavored) Packet 1 PACKET PO ×2 (08:06→16:50)
[2023-12-18] MEDS: APIXABAN 5 MG TABLET PO ×2 (08:06→22:35)
[2023-12-18] MEDS: Carvedilol 6.25 MG Tablet PO ×2 (08:06→22:35)
[2023-12-18] MEDS: Pantoprazole Sodium 20 MG Tablet PO (08:06)
[2023-12-18] MEDS: Furosemide 40 MG Tablet PO (08:06)
[2023-12-18] MEDS: Losartan Potassium 25 MG Tablet PO (08:06)
[2023-12-18] MEDS: Fluticasone 0.05% 1 SPRAY NASAL.SRY NASAL (08:06)
[2023-12-18] MEDS: Polyethylene Glycol 3350 17 GM PACKET PO (08:06)
[2023-12-18] MEDS: Finasteride 5 MG Tablet PO (08:06)
[2023-12-18] MEDS: Umeclidinium Brm/Vilanterol 62.5-25 mcg Inh 1 PUFF INHALATION (08:06)
[2023-12-18] MEDS: Senna/Docusate Sodium 1 Tablet 2 TABLET PO ×2 (08:06→22:35)
[2023-12-18] MEDS: Ensure Plus High Protein 120 ML LIQUID PO ×3 (08:12→16:50)
[2023-12-18 08:16] VITALS: O2SAT 95
[2023-12-18 08:57] VITALS: BMI 26.1
[2023-12-18 09:44] VITALS: BP 112/66; PULSE 75; RESP 18; TEMP 36.2; O2SAT 95
--- NOTE | 2023-12-18 11:57 | NURSING ---
Animal Cruelty Investigator Note; Activity Asset: Shiv Solis prefers to be called Davin. Davin is independent in his choice of daily activities. He enjoys talking w/other about his travels and getting to know people. He will read, watch tv and spend time w/family and friends. He welcomes visits from the String [employer]aster and therapy dog when available. Staff will continue to remind him of weekly activities, encourage group, and respect his right to say no.
[2023-12-18 16:10] VITALS: O2SAT 95
[2023-12-18] MEDS: Tamsulosin HCl 0.4 MG Capsule PO (16:50)
[2023-12-18] MEDS: ROSUVASTATIN CALCIUM 40 MG TABLET PO (22:35)
[2023-12-19] MEDS: oxyCODONE 5 MG Tablet PO ×2 (02:47→20:19)
[2023-12-19] MEDS: Baclofen 10 MG Tablet PO ×3 (05:57→20:20)
[2023-12-19] MEDS: Acetaminophen 500 MG Tablet 1000 MG PO ×3 (05:57→20:19)
[2023-12-19] MEDS: Umeclidinium Brm/Vilanterol 62.5-25 mcg Inh 1 PUFF INHALATION (08:16)
[2023-12-19] MEDS: Fluticasone 0.05% 1 SPRAY NASAL.SRY NASAL (08:17)
[2023-12-19] MEDS: Losartan Potassium 25 MG Tablet PO (08:20)
[2023-12-19] MEDS: Carvedilol 6.25 MG Tablet PO ×2 (08:20→20:20)
[2023-12-19] MEDS: Menthol/Lanolin/Calamine/Znox 113 GM Tube 1 APPLIC TOPICAL (08:20)
[2023-12-19] MEDS: Furosemide 40 MG Tablet PO (08:21)
[2023-12-19] MEDS: Pantoprazole Sodium 20 MG Tablet PO (08:21)
[2023-12-19] MEDS: Polyethylene Glycol 3350 17 GM PACKET PO (08:21)
[2023-12-19] MEDS: APIXABAN 5 MG TABLET PO ×2 (08:21→20:19)
[2023-12-19] MEDS: Juven (unflavored) Packet 1 PACKET PO ×2 (08:21→16:11)
[2023-12-19] MEDS: Finasteride 5 MG Tablet PO (08:21)
[2023-12-19] MEDS: Senna/Docusate Sodium 1 Tablet 2 TABLET PO (08:22)
[2023-12-19] MEDS: Ensure Plus High Protein 120 ML LIQUID PO ×3 (08:29→17:52)
[2023-12-19 08:33] VITALS: O2SAT 93
[2023-12-19 09:58] VITALS: BP 106/57; PULSE 72; RESP 18; TEMP 36.2; O2SAT 93
--- NOTE | 2023-12-19 10:05 | CASEMGMT ---
Social Work- IDT Care Planning. IDT met with patient and , Rosanna at bedside to complete care planning. Discussed patient progress with therapy (PT/OT), dietary, and activities. Patient is currently on regular diet with devante and increased protein via ensure. Per therapy, patient is heel weight bearing with surgical boot. Patient requires wound care and healing. Patient inquired about safety regarding weight bearing. Patient is ambulating 20ft contact guard with walker. Patient is requesting a front wheeled walker to support ambulation. Patient has transport wheelchair at home. Therapy is recommending a ramp for entry to home. Patient informed team that he believes his son can install ramp at home. Patient is at baseline for dressing and toileting. Patient's will work with therapy to assist with family training as needed. Patient is independent with activities. MARIELLE educated patient and of [facility] Medicare insurance coverage and next review date 12/25/2023. Patient previously had [facility] prior to admission. Patient's goal is to return home with and home health care services. SW to order front wheeled walker prior to discharge. SW will continue to follow to support discharge planning. CLIFF Morales
--- NOTE | 2023-12-19 13:47 | CASEMGMT ---
Addendum entered by Ibis Hernnadez 12/20/23 08:45: Correction: BIM () Original Note: Social Work SW completed patient's MDS. BIM () and Phq-2 (0) CLIFF Morales
[2023-12-19] MEDS: COVID VAC 23-24(12UP)(ANDU)/PF 50 MCG/0.5 ML SYR/VIAL IM (14:30)
[2023-12-19] MEDS: Tamsulosin HCl 0.4 MG Capsule PO (16:11)
[2023-12-19 18:34] VITALS: O2SAT 94
[2023-12-19] MEDS: ROSUVASTATIN CALCIUM 40 MG TABLET PO (20:19)
[2023-12-20] MEDS: oxyCODONE 5 MG Tablet PO (02:03)
--- NOTE | 2023-12-20 02:15 | NURSING ---
pt up frequently this hs to use the bsc to void, bladder scan completed at this time and values was noted to be at 40cc after voiding 150. urine is clear and yellow with no odor and pt denies any sx when asked. incisions to groin were noted to be moist in appearance and gauze sponges applied to the area. the lt incision is noted to be more red in appearance than the rt. pt reports to be very painful in his rt thigh and and foot. foam boots applied to feet while pt is in bed. oxyir given x's 2 this shift so far. rn made aware
--- NOTE | 2023-12-20 03:10 | NURSING ---
Written communiction left for Dr. Stewart regarding patient difficulty sleeping, apparent hyperfixation on toileting at HS, no evidence of bladder retention AEB bladder scan result 40cc, LBM recorded as 12/18, and redness observed to left groin site with communication in place for dayshift nurse to contact Dr. Scott office regarding staple removal date for bilat groin sx sites.
[2023-12-20] MEDS: diazePAM 5 MG Tablet PO ×2 (03:18→21:41)
[2023-12-20 03:57] VITALS: BP 97/64; PULSE 83; RESP 17; TEMP 36.9; O2SAT 92
--- NOTE | 2023-12-20 04:28 | NURSING ---
pt continues to get in and out of bed and report that his pain in is lt leg is positional and feels better when he is sitting up. pt positioned to a straight back chair d/t he refused to sit in the recliner. valium given with some effect. am care completed and dressing changed to the left foot. dressing changed to the foot as per order, scant amt of sero-sang drainage.
[2023-12-20] MEDS: Acetaminophen 500 MG Tablet 1000 MG PO ×3 (05:17→21:37)
[2023-12-20] MEDS: Baclofen 10 MG Tablet PO ×3 (05:18→21:35)
[2023-12-20 07:24] VITALS: O2SAT 96
[2023-12-20] MEDS: Ensure Plus High Protein 120 ML LIQUID PO ×3 (08:16→17:01)
[2023-12-20] MEDS: Juven (unflavored) Packet 1 PACKET PO ×2 (08:16→17:01)
[2023-12-20] MEDS: Umeclidinium Brm/Vilanterol 62.5-25 mcg Inh 1 PUFF INHALATION (09:29)
[2023-12-20] MEDS: Menthol/Lanolin/Calamine/Znox 113 GM Tube 1 APPLIC TOPICAL ×2 (09:29→21:33)
[2023-12-20] MEDS: Losartan Potassium 25 MG Tablet PO (09:30)
[2023-12-20] MEDS: Carvedilol 6.25 MG Tablet PO ×2 (09:30→21:34)
[2023-12-20] MEDS: Fluticasone 0.05% 1 SPRAY NASAL.SRY NASAL (09:31)
[2023-12-20] MEDS: Doxycycline 100 MG CAPSULE PO ×2 (09:31→21:34)
[2023-12-20] MEDS: APIXABAN 5 MG TABLET PO ×2 (09:31→21:35)
[2023-12-20] MEDS: Furosemide 40 MG Tablet PO (09:31)
[2023-12-20] MEDS: Lidocaine 5% Patch 1 PATCH TOPICAL (09:32)
[2023-12-20] MEDS: Finasteride 5 MG Tablet PO (09:33)
[2023-12-20] MEDS: Pantoprazole Sodium 20 MG Tablet PO (09:33)
[2023-12-20] MEDS: Senna/Docusate Sodium 1 Tablet 2 TABLET PO ×2 (09:33→21:36)
[2023-12-20] MEDS: Cephalexin 500 MG Capsule PO ×3 (11:58→23:05)
[2023-12-20 14:19] VITALS: BP 103/65; PULSE 76; RESP 16; TEMP 36.3; O2SAT 98
[2023-12-20 15:50] VITALS: O2SAT 94
[2023-12-20] MEDS: Tamsulosin HCl 0.4 MG Capsule PO (17:04)
[2023-12-20 21:31] VITALS: BP 107/70; PULSE 80
[2023-12-20] MEDS: ROSUVASTATIN CALCIUM 40 MG TABLET PO (21:35)
[2023-12-20] MEDS: Doxepin Hydrochloride 10 MG Capsule PO (21:36)
[2023-12-21] MEDS: Baclofen 10 MG Tablet PO ×3 (05:33→21:30)
[2023-12-21] MEDS: Cephalexin 500 MG Capsule PO ×4 (05:33→22:58)
[2023-12-21] MEDS: Acetaminophen 500 MG Tablet 1000 MG PO ×3 (05:34→21:30)
[2023-12-21 06:01] LABS: Absolute Lymphocyte Count 1.94 X10^3/uL (0.83-4.51); Absolute Neutrophil Count 6.7 X10^3/uL (2.0-7.7); Basophil# 0.05 X10^3/uL; Basophil% 0.5 % (0-1); Eosinophil# 0.36 X10^3/uL; Eosinophils% 3.6 % (0-5); Hematocrit 35.2 % (40-54); Hemoglobin 11.7 g/dL (13.0-16.5); Lymphocyte # 1.94 X10^3/ul (0.83-4.51); Lymphocyte % 19.5 % (19-41); Mean Corp Hgb Conc 33.2 g/dL (32-36); Mean Corpuscular Hgb 35.9 pg (27.0-32.0); Mean Platelet Vol. 9.7 fl (6.2-12.0); Monocyte# 0.93 X10^3/uL; Monocyte% 9.3 % (0-10); NRBC Flagged by Analyzer 0 % (0-5); Neutrophil # 6.66 X10^3/uL (2.7-7.7); Neutrophil % 66.8 % (47-70); Platelet Count 172 K/mm3 (150-450); RBC Distribution Width CV 15.1 % (11.6-14.6); RBC Distribution Width SD 60.1 fl (35.1-43.9); Red Blood Count 3.26 M/mm3 (4.6-6.2)
[2023-12-21 06:29] LABS: Anion Gap 8 (5-15); BUN 34 mg/dL (7-18); BUN/Creat Ratio 47.6 RATIO (10-20); Calcium,Total 9.1 mg/dL (8.5-10.1); Chloride 108 mmol/L (98-107); Creatinine, Serum 0.72 mg/dL (0.70-1.30); EST Glomerular Filtration Rate 113 mL/min (>60); Est Glom Filt Rate - Afr Amer 136 mL/min (>60); Estimated Creatinine Clearance 73.65 ml/min; Glucose 97 mg/dL (74-106); Sodium Level 140 mmol/L (136-145)
[2023-12-21] MEDS: Polyethylene Glycol 3350 17 GM PACKET PO (08:12)
[2023-12-21] MEDS: Juven (unflavored) Packet 1 PACKET PO ×2 (08:12→17:17)
[2023-12-21] MEDS: Carvedilol 6.25 MG Tablet PO ×2 (08:12→21:31)
[2023-12-21] MEDS: Doxycycline 100 MG CAPSULE PO ×2 (08:13→21:30)
[2023-12-21] MEDS: Losartan Potassium 25 MG Tablet PO (08:13)
[2023-12-21] MEDS: APIXABAN 5 MG TABLET PO ×2 (08:13→21:33)
[2023-12-21] MEDS: Senna/Docusate Sodium 1 Tablet 2 TABLET PO ×2 (08:13→21:31)
[2023-12-21] MEDS: Lidocaine 5% Patch 1 PATCH TOPICAL (08:13)
[2023-12-21] MEDS: Pantoprazole Sodium 20 MG Tablet PO (08:13)
[2023-12-21] MEDS: Furosemide 40 MG Tablet PO (08:13)
[2023-12-21] MEDS: Fluticasone 0.05% 1 SPRAY NASAL.SRY NASAL (08:13)
[2023-12-21] MEDS: Finasteride 5 MG Tablet PO (08:14)
[2023-12-21] MEDS: Umeclidinium Brm/Vilanterol 62.5-25 mcg Inh 1 PUFF INHALATION (08:14)
[2023-12-21] MEDS: Menthol/Lanolin/Calamine/Znox 113 GM Tube 1 APPLIC TOPICAL ×2 (08:14→21:28)
[2023-12-21] MEDS: Ensure Plus High Protein 120 ML LIQUID PO ×3 (08:21→17:12)
[2023-12-21 08:29] VITALS: BP 103/66; PULSE 78
--- NOTE | 2023-12-21 09:09 | NURSING ---
Tie Puller Note; MDS for 12/20/2023 Complete
[2023-12-21 10:37] LABS: Bacteria 0 SEEN /hpf (None Seen); Mucous, Urine 0 SEEN /hpf (<or=2+); Red Blood Cells-Urine 0 SEEN /hpf (0-5); Squamous Epithelial Cells - UA 0 SEEN /hpf (0-5)
[2023-12-21 10:41] LABS: Color, Urine Yellow (Yellow); Glucose, Dipstick Normal (Normal); Ketone-Dipstick Negative (Negative); Leukocyte Esterase-Dipstick 25 /ul (Negative); Nitrite-Dipstick Negative (Negative); Occult Blood-Urine Negative /ul (Negative); Protein-Dipstick 15 mg/dl (Negative); Urine Bilirubin Dipstick Negative (Negative); Urine Clarity Clear (Clear); Urine Urobilinogen Normal (Normal)
[2023-12-21] MEDS: Tuberculin,Purif.prot.deriv. 50 TU/ML Vial 0.1 ML ID (10:47)
[2023-12-21 10:48] LABS: White Blood Cells 0-5 SEEN /hpf (0-5)
[2023-12-21 12:11] VITALS: O2SAT 93
[2023-12-21 13:04] VITALS: BP 134/74; PULSE 75; RESP 14; TEMP 36.4; O2SAT 94
[2023-12-21 13:37] VITALS: O2SAT 94
--- NOTE | 2023-12-21 13:43 | WOUNDNOTE ---
Dressing to the left foot had been changed this am. D&I at this time.
[2023-12-21] MEDS: Tamsulosin HCl 0.4 MG Capsule PO (17:12)
[2023-12-21 20:00] VITALS: PULSE 86; O2SAT 94
[2023-12-21 21:25] VITALS: BP 134/75; PULSE 86; O2SAT 94
[2023-12-21] MEDS: ROSUVASTATIN CALCIUM 40 MG TABLET PO (21:32)
[2023-12-21] MEDS: Doxepin Hydrochloride 10 MG Capsule PO (21:33)
[2023-12-22 04:50] VITALS: PULSE 82; O2SAT 92
[2023-12-22] MEDS: Baclofen 10 MG Tablet PO ×3 (06:14→22:36)
[2023-12-22] MEDS: Cephalexin 500 MG Capsule PO ×4 (06:14→23:20)
[2023-12-22] MEDS: Acetaminophen 500 MG Tablet 1000 MG PO ×3 (06:14→22:36)
[2023-12-22 06:51] VITALS: O2SAT 92
[2023-12-22] MEDS: Ensure Plus High Protein 120 ML LIQUID PO ×3 (08:47→16:59)
[2023-12-22] MEDS: Umeclidinium Brm/Vilanterol 62.5-25 mcg Inh 1 PUFF INHALATION (08:48)
[2023-12-22] MEDS: Juven (unflavored) Packet 1 PACKET PO ×2 (08:48→17:00)
[2023-12-22] MEDS: Menthol/Lanolin/Calamine/Znox 113 GM Tube 1 APPLIC TOPICAL ×2 (08:48→22:37)
[2023-12-22] MEDS: Fluticasone 0.05% 1 SPRAY NASAL.SRY NASAL (08:49)
[2023-12-22] MEDS: Doxycycline 100 MG CAPSULE PO ×2 (08:49→22:36)
[2023-12-22] MEDS: Finasteride 5 MG Tablet PO (08:50)
[2023-12-22] MEDS: Carvedilol 6.25 MG Tablet PO ×2 (08:51→22:36)
[2023-12-22] MEDS: Losartan Potassium 25 MG Tablet PO (08:52)
[2023-12-22] MEDS: APIXABAN 5 MG TABLET PO ×2 (08:53→22:36)
[2023-12-22] MEDS: Polyethylene Glycol 3350 17 GM PACKET PO (08:54)
[2023-12-22] MEDS: Senna/Docusate Sodium 1 Tablet 2 TABLET PO ×2 (08:55→22:36)
[2023-12-22] MEDS: Furosemide 40 MG Tablet PO (08:55)
[2023-12-22] MEDS: Pantoprazole Sodium 20 MG Tablet PO (08:57)
[2023-12-22] MEDS: Lidocaine 5% Patch 1 PATCH TOPICAL (08:58)
[2023-12-22 13:50] VITALS: BP 119/59; PULSE 77; RESP 14; TEMP 36.5; O2SAT 94
[2023-12-22] MEDS: Tamsulosin HCl 0.4 MG Capsule PO (17:00)
[2023-12-22] MEDS: Doxepin Hydrochloride 10 MG Capsule PO (22:36)
[2023-12-22] MEDS: ROSUVASTATIN CALCIUM 40 MG TABLET PO (22:36)
[2023-12-22 22:45] VITALS: BP 119/67; PULSE 84
[2023-12-23] MEDS: Acetaminophen 500 MG Tablet 1000 MG PO ×3 (06:09→22:05)
[2023-12-23] MEDS: Cephalexin 500 MG Capsule PO ×3 (06:09→16:40)
[2023-12-23] MEDS: Baclofen 10 MG Tablet PO ×3 (06:09→22:05)
[2023-12-23 06:48] VITALS: O2SAT 99
[2023-12-23] MEDS: Fluticasone 0.05% 1 SPRAY NASAL.SRY NASAL (08:31)
[2023-12-23] MEDS: Umeclidinium Brm/Vilanterol 62.5-25 mcg Inh 1 PUFF INHALATION (08:31)
[2023-12-23] MEDS: Polyethylene Glycol 3350 17 GM PACKET PO (08:32)
[2023-12-23] MEDS: Juven (unflavored) Packet 1 PACKET PO ×2 (08:32→16:40)
[2023-12-23] MEDS: Pantoprazole Sodium 20 MG Tablet PO (08:33)
[2023-12-23] MEDS: Senna/Docusate Sodium 1 Tablet 2 TABLET PO ×2 (08:33→22:05)
[2023-12-23] MEDS: APIXABAN 5 MG TABLET PO ×2 (08:33→22:05)
[2023-12-23] MEDS: Lidocaine 5% Patch 1 PATCH TOPICAL (08:33)
[2023-12-23] MEDS: Losartan Potassium 25 MG Tablet PO (08:33)
[2023-12-23] MEDS: Carvedilol 6.25 MG Tablet PO ×2 (08:33→22:04)
[2023-12-23] MEDS: Finasteride 5 MG Tablet PO (08:33)
[2023-12-23] MEDS: Menthol/Lanolin/Calamine/Znox 113 GM Tube 1 APPLIC TOPICAL ×2 (08:34→22:04)
[2023-12-23] MEDS: Ensure Plus High Protein 120 ML LIQUID PO ×3 (08:34→16:40)
[2023-12-23] MEDS: Furosemide 40 MG Tablet PO (08:35)
[2023-12-23] MEDS: Doxycycline 100 MG CAPSULE PO ×2 (08:35→22:05)
[2023-12-23 13:27] VITALS: BP 106/57; PULSE 80; RESP 18; TEMP 36.1; O2SAT 96
--- NOTE | 2023-12-23 15:31 | NURSING ---
New order received for Mirapex 0.5mg qhs for restless legs. Patient updated.
[2023-12-23] MEDS: Tamsulosin HCl 0.4 MG Capsule PO (16:41)
[2023-12-23] MEDS: Doxepin Hydrochloride 10 MG Capsule PO (22:05)
[2023-12-23] MEDS: ROSUVASTATIN CALCIUM 40 MG TABLET PO (22:05)
[2023-12-23] MEDS: Pramipexole Di-HCl 0.5 MG Tablet PO (22:05)
--- NOTE | 2023-12-23 22:10 | NURSING ---
Dressing to L foot changed per order at this time due to visible drainage noted to outside of previous dressing. Pt sharmaine. well, no s/sx of infection observed.
--- NOTE | 2023-12-23 22:53 | PCA ---
oxygen tubing and water bottle changed tonight
[2023-12-24] MEDS: Cephalexin 500 MG Capsule PO ×5 (00:21→23:04)
[2023-12-24] MEDS: Acetaminophen 500 MG Tablet 1000 MG PO ×3 (05:45→21:46)
[2023-12-24] MEDS: Baclofen 10 MG Tablet PO ×3 (05:45→21:48)
[2023-12-24 07:03] VITALS: O2SAT 96
[2023-12-24] MEDS: Ensure Plus High Protein 120 ML LIQUID PO ×3 (08:15→16:41)
[2023-12-24] MEDS: Lidocaine 5% Patch 1 PATCH TOPICAL (08:16)
[2023-12-24] MEDS: Fluticasone 0.05% 1 SPRAY NASAL.SRY NASAL (08:17)
[2023-12-24] MEDS: Umeclidinium Brm/Vilanterol 62.5-25 mcg Inh 1 PUFF INHALATION (08:17)
[2023-12-24] MEDS: Juven (unflavored) Packet 1 PACKET PO ×2 (08:17→16:42)
[2023-12-24] MEDS: Furosemide 40 MG Tablet PO (08:18)
[2023-12-24] MEDS: Pantoprazole Sodium 20 MG Tablet PO (08:18)
[2023-12-24] MEDS: Finasteride 5 MG Tablet PO (08:18)
[2023-12-24] MEDS: Senna/Docusate Sodium 1 Tablet 2 TABLET PO ×2 (08:18→21:48)
[2023-12-24] MEDS: APIXABAN 5 MG TABLET PO ×2 (08:18→21:48)
[2023-12-24] MEDS: Polyethylene Glycol 3350 17 GM PACKET PO (08:18)
[2023-12-24] MEDS: Losartan Potassium 25 MG Tablet PO (08:18)
[2023-12-24] MEDS: Carvedilol 6.25 MG Tablet PO ×2 (08:18→21:47)
[2023-12-24] MEDS: Menthol/Lanolin/Calamine/Znox 113 GM Tube 1 APPLIC TOPICAL ×2 (08:19→21:43)
[2023-12-24] MEDS: Doxycycline 100 MG CAPSULE PO ×2 (08:36→21:47)
--- NOTE | 2023-12-24 10:19 | CASEMGMT ---
Social Work MARIELLE received a voicemail from Liz Alvarez inquiring about patient discharge. MARIELLE contacted and spoke with Liz to provide update regarding pending insurance update. MARIELLE informed Liz that the patient does not currently have a scheduled discharge date. SW to follow up. CLIFF Morales
[2023-12-24 13:42] VITALS: BP 118/48; PULSE 59; RESP 16; TEMP 36.2; O2SAT 95
--- NOTE | 2023-12-24 13:52 | WOUNDNOTE ---
wound photo: left foot
--- NOTE | 2023-12-24 13:54 | WOUNDNOTE ---
wound photo: left heel
--- NOTE | 2023-12-24 14:28 | MDS.RN ---
Information for the MDS was obtained from review of the clinical record, interview of resident, staff, and direct observation of resident?s care.
[2023-12-24 16:17] VITALS: O2SAT 90
[2023-12-24] MEDS: Tamsulosin HCl 0.4 MG Capsule PO (16:42)
[2023-12-24] MEDS: ROSUVASTATIN CALCIUM 40 MG TABLET PO (21:46)
[2023-12-24] MEDS: Pramipexole Di-HCl 0.5 MG Tablet PO (21:48)
[2023-12-24] MEDS: Doxepin Hydrochloride 10 MG Capsule PO (21:49)
[2023-12-24 21:52] VITALS: BP 112/69; PULSE 70
[2023-12-25] MEDS: Acetaminophen 500 MG Tablet 1000 MG PO ×3 (05:31→21:32)
[2023-12-25] MEDS: Cephalexin 500 MG Capsule PO ×3 (05:31→18:58)
[2023-12-25] MEDS: Baclofen 10 MG Tablet PO ×3 (05:32→21:31)
[2023-12-25 07:24] VITALS: O2SAT 96
[2023-12-25] MEDS: Ensure Plus High Protein 120 ML LIQUID PO ×2 (08:23→12:01)
[2023-12-25] MEDS: Juven (unflavored) Packet 1 PACKET PO ×2 (08:23→18:58)
[2023-12-25] MEDS: Umeclidinium Brm/Vilanterol 62.5-25 mcg Inh 1 PUFF INHALATION (08:24)
[2023-12-25] MEDS: Menthol/Lanolin/Calamine/Znox 113 GM Tube 1 APPLIC TOPICAL ×2 (08:25→21:31)
[2023-12-25] MEDS: Doxycycline 100 MG CAPSULE PO ×2 (08:26→21:31)
[2023-12-25] MEDS: Losartan Potassium 25 MG Tablet PO (08:26)
[2023-12-25] MEDS: Carvedilol 6.25 MG Tablet PO ×2 (08:26→21:31)
[2023-12-25] MEDS: APIXABAN 5 MG TABLET PO ×2 (08:27→21:31)
[2023-12-25] MEDS: Lidocaine 5% Patch 1 PATCH TOPICAL (08:27)
[2023-12-25] MEDS: Senna/Docusate Sodium 1 Tablet 2 TABLET PO ×2 (08:28→21:31)
[2023-12-25] MEDS: Finasteride 5 MG Tablet PO (08:28)
[2023-12-25] MEDS: Polyethylene Glycol 3350 17 GM PACKET PO (08:28)
[2023-12-25] MEDS: Pantoprazole Sodium 20 MG Tablet PO (08:28)
[2023-12-25 08:30] VITALS: BP 118/71; PULSE 75; RESP 18; TEMP 37.1; O2SAT 94
[2023-12-25 10:33] VITALS: BMI 26.4
[2023-12-25] MEDS: Fluticasone 0.05% 1 SPRAY NASAL.SRY NASAL (11:12)
[2023-12-25] MEDS: Furosemide 40 MG Tablet PO (11:12)
[2023-12-25 14:26] VITALS: BP 113/58; PULSE 73; RESP 16; TEMP 36.4; O2SAT 97
--- NOTE | 2023-12-25 17:43 | NURSING ---
Pt left facility with at 2:15pm for follow up visit with Dr. Chilel in [place].
[2023-12-25 18:29] VITALS: O2SAT 90
[2023-12-25] MEDS: Tamsulosin HCl 0.4 MG Capsule PO (18:58)
--- NOTE | 2023-12-25 19:03 | NURSING ---
pt returned with orders need reviewed.
[2023-12-25] MEDS: Pramipexole Di-HCl 0.5 MG Tablet PO (21:31)
[2023-12-25] MEDS: ROSUVASTATIN CALCIUM 40 MG TABLET PO (21:31)
[2023-12-25] MEDS: Doxepin Hydrochloride 10 MG Capsule PO (21:31)
[2023-12-25 22:00] VITALS: PULSE 90; O2SAT 95
[2023-12-26] MEDS: Cephalexin 500 MG Capsule PO ×5 (00:49→23:26)
[2023-12-26] MEDS: LORazepam 0.5 MG Tablet PO (01:13)
[2023-12-26] MEDS: Acetaminophen 500 MG Tablet 1000 MG PO ×3 (06:16→21:41)
[2023-12-26] MEDS: Baclofen 10 MG Tablet PO ×3 (06:16→21:41)
[2023-12-26 06:59] VITALS: O2SAT 95
[2023-12-26] MEDS: Juven (unflavored) Packet 1 PACKET PO ×2 (09:20→17:27)
[2023-12-26] MEDS: Ensure Plus High Protein 120 ML LIQUID PO ×3 (09:20→17:27)
[2023-12-26] MEDS: APIXABAN 5 MG TABLET PO ×2 (09:21→21:41)
[2023-12-26] MEDS: Carvedilol 6.25 MG Tablet PO ×2 (09:21→21:41)
[2023-12-26] MEDS: Doxycycline 100 MG CAPSULE PO ×2 (09:21→21:42)
[2023-12-26] MEDS: Losartan Potassium 25 MG Tablet PO (09:21)
[2023-12-26] MEDS: Umeclidinium Brm/Vilanterol 62.5-25 mcg Inh 1 PUFF INHALATION (09:21)
[2023-12-26] MEDS: Furosemide 40 MG Tablet PO (09:22)
[2023-12-26] MEDS: Polyethylene Glycol 3350 17 GM PACKET PO (09:22)
[2023-12-26] MEDS: Finasteride 5 MG Tablet PO (09:22)
[2023-12-26] MEDS: Pantoprazole Sodium 20 MG Tablet PO (09:22)
[2023-12-26] MEDS: Senna/Docusate Sodium 1 Tablet 2 TABLET PO ×2 (09:22→21:41)
[2023-12-26] MEDS: Lidocaine 5% Patch 1 PATCH TOPICAL (09:26)
[2023-12-26] MEDS: Fluticasone 0.05% 1 SPRAY NASAL.SRY NASAL (09:28)
[2023-12-26] MEDS: Menthol/Lanolin/Calamine/Znox 113 GM Tube 1 APPLIC TOPICAL ×2 (09:36→21:42)
[2023-12-26 14:02] VITALS: BP 108/65; PULSE 76; RESP 16; TEMP 36.3; O2SAT 94
[2023-12-26] MEDS: Tamsulosin HCl 0.4 MG Capsule PO (17:27)
[2023-12-26] MEDS: ROSUVASTATIN CALCIUM 40 MG TABLET PO (21:41)
[2023-12-26] MEDS: Doxepin Hydrochloride 10 MG Capsule PO (21:41)
[2023-12-26] MEDS: Pramipexole Di-HCl 0.5 MG Tablet PO (21:42)
[2023-12-26 21:45] VITALS: BP 115/61; PULSE 70; RESP 18
--- NOTE | 2023-12-27 03:31 | NURSING ---
Resident calls staff requesting medication. This nurse went back to room and resident is resting e/ eyes closed. O2 via nasal cannula in use. Will continue to monitor.
[2023-12-27] MEDS: Baclofen 10 MG Tablet PO ×3 (05:36→22:55)
[2023-12-27] MEDS: Cephalexin 500 MG Capsule PO ×2 (05:36→12:48)
[2023-12-27] MEDS: Acetaminophen 500 MG Tablet 1000 MG PO ×3 (05:36→22:58)
[2023-12-27 05:53] VITALS: PULSE 78; RESP 16; O2SAT 92
[2023-12-27 07:53] VITALS: O2SAT 95
[2023-12-27 09:39] VITALS: BP 110/66; PULSE 70; RESP 16; O2SAT 91
[2023-12-27] MEDS: Juven (unflavored) Packet 1 PACKET PO ×2 (09:53→17:59)
[2023-12-27] MEDS: Doxycycline 100 MG CAPSULE PO (09:54)
[2023-12-27] MEDS: Furosemide 40 MG Tablet PO (09:54)
[2023-12-27] MEDS: Polyethylene Glycol 3350 17 GM PACKET PO (09:54)
[2023-12-27] MEDS: Finasteride 5 MG Tablet PO (09:55)
[2023-12-27] MEDS: APIXABAN 5 MG TABLET PO ×2 (09:55→22:55)
[2023-12-27] MEDS: Carvedilol 6.25 MG Tablet PO ×2 (09:55→22:54)
[2023-12-27] MEDS: Senna/Docusate Sodium 1 Tablet 2 TABLET PO ×2 (09:56→22:56)
[2023-12-27] MEDS: Lidocaine 5% Patch 1 PATCH TOPICAL (09:56)
[2023-12-27] MEDS: Losartan Potassium 25 MG Tablet PO (09:57)
[2023-12-27] MEDS: Umeclidinium Brm/Vilanterol 62.5-25 mcg Inh 1 PUFF INHALATION (09:57)
[2023-12-27] MEDS: Fluticasone 0.05% 1 SPRAY NASAL.SRY NASAL (09:58)
[2023-12-27] MEDS: Pantoprazole Sodium 20 MG Tablet PO (09:58)
[2023-12-27] MEDS: Menthol/Lanolin/Calamine/Znox 113 GM Tube 1 APPLIC TOPICAL ×2 (10:05→22:37)
[2023-12-27] MEDS: Ensure Plus High Protein 120 ML LIQUID PO ×3 (10:06→17:59)
[2023-12-27 11:53] VITALS: O2SAT 93
[2023-12-27 16:00] VITALS: TEMP 36.6
[2023-12-27] MEDS: Tamsulosin HCl 0.4 MG Capsule PO (17:59)
[2023-12-27] MEDS: Pramipexole Di-HCl 0.5 MG Tablet PO (22:55)
[2023-12-27] MEDS: ROSUVASTATIN CALCIUM 40 MG TABLET PO (22:55)
[2023-12-27] MEDS: Doxepin Hydrochloride 10 MG Capsule PO (22:57)
--- NOTE | 2023-12-27 23:10 | NURSING ---
Left foot dressing changed due to dressing loose and comming off.
[2023-12-27 23:18] VITALS: BP 109/63; PULSE 80
[2023-12-28] MEDS: Baclofen 10 MG Tablet PO ×3 (05:36→20:32)
[2023-12-28] MEDS: Acetaminophen 500 MG Tablet 1000 MG PO ×3 (05:36→20:32)
[2023-12-28 06:19] LABS: Absolute Lymphocyte Count 2.63 X10^3/uL (0.83-4.51); Absolute Neutrophil Count 4.4 X10^3/uL (2.0-7.7); Basophil# 0.07 X10^3/uL; Basophil% 0.8 % (0-1); Eosinophil# 0.36 X10^3/uL; Eosinophils% 4.3 % (0-5); Hematocrit 36.7 % (40-54); Hemoglobin 12.1 g/dL (13.0-16.5); Lymphocyte # 2.63 X10^3/ul (0.83-4.51); Lymphocyte % 31.1 % (19-41); Mean Corpuscular Hgb 35.2 pg (27.0-32.0); Mean Corpuscular Volume 106.7 fL (80-94); Mean Platelet Vol. 11.4 fl (6.2-12.0); Monocyte# 0.93 X10^3/uL; NRBC Flagged by Analyzer 0 % (0-5); Neutrophil # 4.42 X10^3/uL (2.7-7.7); Neutrophil % 52.2 % (47-70); Platelet Count 161 K/mm3 (150-450); RBC Distribution Width CV 14.9 % (11.6-14.6); RBC Distribution Width SD 58.4 fl (35.1-43.9); Red Blood Count 3.44 M/mm3 (4.6-6.2); White Blood Count 8.5 K/mm3 (4.4-11.0)
[2023-12-28 06:51] LABS: Anion Gap 8 (5-15); BUN 48 mg/dL (7-18); BUN/Creat Ratio 62.1 RATIO (10-20); Calcium,Total 8.7 mg/dL (8.5-10.1); Chloride 107 mmol/L (98-107); Creatinine, Serum 0.77 mg/dL (0.70-1.30); EST Glomerular Filtration Rate 103 mL/min (>60); Est Glom Filt Rate - Afr Amer 124 mL/min (>60); Estimated Creatinine Clearance 73.65 ml/min; Glucose 94 mg/dL (74-106); Potassium 3.7 mmol/L (3.5-5.1); Sodium Level 138 mmol/L (136-145)
[2023-12-28 07:01] VITALS: O2SAT 97
[2023-12-28] MEDS: Ensure Plus High Protein 120 ML LIQUID PO ×3 (08:49→17:26)
[2023-12-28] MEDS: Umeclidinium Brm/Vilanterol 62.5-25 mcg Inh 1 PUFF INHALATION (08:51)
[2023-12-28] MEDS: Juven (unflavored) Packet 1 PACKET PO ×2 (08:51→17:26)
[2023-12-28] MEDS: Carvedilol 6.25 MG Tablet PO ×2 (08:51→20:33)
[2023-12-28] MEDS: APIXABAN 5 MG TABLET PO ×2 (08:52→20:37)
[2023-12-28] MEDS: Losartan Potassium 25 MG Tablet PO (08:52)
[2023-12-28] MEDS: Fluticasone 0.05% 1 SPRAY NASAL.SRY NASAL (08:52)
[2023-12-28] MEDS: Furosemide 40 MG Tablet PO (08:52)
[2023-12-28] MEDS: Lidocaine 5% Patch 1 PATCH TOPICAL (08:52)
[2023-12-28] MEDS: Polyethylene Glycol 3350 17 GM PACKET PO (08:53)
[2023-12-28] MEDS: Pantoprazole Sodium 20 MG Tablet PO (08:53)
[2023-12-28] MEDS: Finasteride 5 MG Tablet PO (08:53)
[2023-12-28] MEDS: Senna/Docusate Sodium 1 Tablet 2 TABLET PO ×2 (08:54→20:35)
[2023-12-28] MEDS: Menthol/Lanolin/Calamine/Znox 113 GM Tube 1 APPLIC TOPICAL ×2 (09:03→20:30)
[2023-12-28 15:38] VITALS: BP 112/65; PULSE 76; RESP 16; TEMP 36.2; O2SAT 96
[2023-12-28 16:32] VITALS: O2SAT 93
[2023-12-28] MEDS: Tamsulosin HCl 0.4 MG Capsule PO (17:26)
[2023-12-28] MEDS: Doxepin Hydrochloride 10 MG Capsule PO (20:34)
[2023-12-28] MEDS: ROSUVASTATIN CALCIUM 40 MG TABLET PO (20:34)
[2023-12-28] MEDS: Pramipexole Di-HCl 0.5 MG Tablet PO (20:36)
[2023-12-28 20:45] VITALS: BP 108/64; PULSE 74
[2023-12-28 23:00] VITALS: PULSE 74; O2SAT 95
[2023-12-29] MEDS: Baclofen 10 MG Tablet PO ×3 (05:23→21:09)
[2023-12-29] MEDS: Acetaminophen 500 MG Tablet 1000 MG PO ×3 (05:23→21:08)
[2023-12-29 05:35] VITALS: PULSE 82; O2SAT 94
[2023-12-29] MEDS: Ensure Plus High Protein 120 ML LIQUID PO ×3 (08:40→17:46)
[2023-12-29] MEDS: Juven (unflavored) Packet 1 PACKET PO ×2 (08:40→16:56)
[2023-12-29] MEDS: Finasteride 5 MG Tablet PO (08:47)
[2023-12-29] MEDS: APIXABAN 5 MG TABLET PO ×2 (08:47→21:07)
[2023-12-29] MEDS: Pantoprazole Sodium 20 MG Tablet PO (08:48)
[2023-12-29] MEDS: Senna/Docusate Sodium 1 Tablet 2 TABLET PO ×2 (08:48→21:08)
[2023-12-29] MEDS: Losartan Potassium 25 MG Tablet PO (08:48)
[2023-12-29] MEDS: Carvedilol 6.25 MG Tablet PO ×2 (08:48→21:08)
[2023-12-29] MEDS: Furosemide 40 MG Tablet PO (08:48)
[2023-12-29] MEDS: Polyethylene Glycol 3350 17 GM PACKET PO (08:49)
[2023-12-29] MEDS: Lidocaine 5% Patch 1 PATCH TOPICAL (08:49)
[2023-12-29] MEDS: Fluticasone 0.05% 1 SPRAY NASAL.SRY NASAL (08:51)
[2023-12-29] MEDS: Umeclidinium Brm/Vilanterol 62.5-25 mcg Inh 1 PUFF INHALATION (08:52)
[2023-12-29] MEDS: Menthol/Lanolin/Calamine/Znox 113 GM Tube 1 APPLIC TOPICAL ×2 (08:53→21:11)
[2023-12-29 09:45] VITALS: O2SAT 98
[2023-12-29 16:00] VITALS: BP 114/69; PULSE 78; RESP 18; TEMP 36.6; O2SAT 93
[2023-12-29] MEDS: Tamsulosin HCl 0.4 MG Capsule PO (16:56)
--- NOTE | 2023-12-29 19:29 | NURSING ---
Patient continues to be very confused. Temp at this time 102.8 after Tylenol administered an hour prior to re-checking.
[2023-12-29 21:07] VITALS: BP 109/60; PULSE 76
[2023-12-29] MEDS: Doxepin Hydrochloride 10 MG Capsule PO (21:09)
[2023-12-29] MEDS: Pramipexole Di-HCl 0.5 MG Tablet PO (21:10)
[2023-12-29] MEDS: ROSUVASTATIN CALCIUM 40 MG TABLET PO (21:11)
[2023-12-30] MEDS: Baclofen 10 MG Tablet PO ×3 (05:03→20:34)
[2023-12-30] MEDS: Acetaminophen 500 MG Tablet 1000 MG PO ×3 (05:03→20:35)
[2023-12-30] MEDS: Juven (unflavored) Packet 1 PACKET PO ×2 (08:14→17:27)
[2023-12-30] MEDS: Menthol/Lanolin/Calamine/Znox 113 GM Tube 1 APPLIC TOPICAL ×2 (08:15→20:35)
[2023-12-30] MEDS: Umeclidinium Brm/Vilanterol 62.5-25 mcg Inh 1 PUFF INHALATION (08:15)
[2023-12-30] MEDS: Fluticasone 0.05% 1 SPRAY NASAL.SRY NASAL (08:16)
[2023-12-30] MEDS: APIXABAN 5 MG TABLET PO ×2 (08:16→20:35)
[2023-12-30] MEDS: Losartan Potassium 25 MG Tablet PO (08:18)
[2023-12-30] MEDS: Carvedilol 6.25 MG Tablet PO ×2 (08:18→20:33)
[2023-12-30] MEDS: Furosemide 40 MG Tablet PO (08:19)
[2023-12-30] MEDS: Lidocaine 5% Patch 1 PATCH TOPICAL (08:19)
[2023-12-30] MEDS: Polyethylene Glycol 3350 17 GM PACKET PO (08:21)
[2023-12-30] MEDS: Finasteride 5 MG Tablet PO (08:22)
[2023-12-30] MEDS: Senna/Docusate Sodium 1 Tablet 2 TABLET PO ×2 (08:23→20:33)
[2023-12-30] MEDS: Pantoprazole Sodium 20 MG Tablet PO (08:23)
[2023-12-30] MEDS: Ensure Plus High Protein 120 ML LIQUID PO ×3 (08:27→17:29)
[2023-12-30 08:35] VITALS: BP 102/60; PULSE 76
[2023-12-30 14:46] VITALS: BP 107/63; PULSE 82; RESP 17; TEMP 36.6
[2023-12-30] MEDS: Tamsulosin HCl 0.4 MG Capsule PO (17:27)
[2023-12-30 20:31] VITALS: BP 100/56; PULSE 80
[2023-12-30] MEDS: Pramipexole Di-HCl 0.5 MG Tablet PO (20:33)
[2023-12-30] MEDS: Doxepin Hydrochloride 10 MG Capsule PO (20:34)
[2023-12-30] MEDS: ROSUVASTATIN CALCIUM 40 MG TABLET PO (20:35)
[2023-12-31] MEDS: Baclofen 10 MG Tablet PO ×2 (05:44→22:18)
[2023-12-31] MEDS: Acetaminophen 500 MG Tablet 1000 MG PO ×2 (05:44→22:18)
[2023-12-31 07:24] VITALS: O2SAT 94
[2023-12-31] MEDS: Ensure Plus High Protein 120 ML LIQUID PO ×2 (07:34→17:29)
[2023-12-31] MEDS: Juven (unflavored) Packet 1 PACKET PO ×2 (07:35→16:38)
[2023-12-31] MEDS: Umeclidinium Brm/Vilanterol 62.5-25 mcg Inh 1 PUFF INHALATION (10:11)
[2023-12-31] MEDS: APIXABAN 5 MG TABLET PO ×2 (10:11→22:18)
[2023-12-31] MEDS: Losartan Potassium 25 MG Tablet PO (10:11)
[2023-12-31] MEDS: Pantoprazole Sodium 20 MG Tablet PO (10:12)
[2023-12-31] MEDS: Finasteride 5 MG Tablet PO (10:12)
[2023-12-31] MEDS: Carvedilol 6.25 MG Tablet PO ×2 (10:12→22:19)
[2023-12-31] MEDS: Lidocaine 5% Patch 1 PATCH TOPICAL (10:13)
[2023-12-31] MEDS: Fluticasone 0.05% 1 SPRAY NASAL.SRY NASAL (10:13)
[2023-12-31 10:15] VITALS: BP 107/71; PULSE 78; RESP 16; TEMP 36.3; O2SAT 98
[2023-12-31] MEDS: Menthol/Lanolin/Calamine/Znox 113 GM Tube 1 APPLIC TOPICAL ×2 (10:18→22:17)
--- NOTE | 2023-12-31 13:36 | NURSING ---
Patient off unit for appt in [place]. Family transporting.
--- NOTE | 2023-12-31 13:45 | WOUNDNOTE ---
Pt currently at follow up appt. will continue to follow as needed.
--- NOTE | 2023-12-31 16:32 | NURSING ---
Patient returned from appt at this time.
[2023-12-31] MEDS: oxyCODONE 5 MG Tablet PO ×2 (16:37→22:21)
[2023-12-31] MEDS: Tamsulosin HCl 0.4 MG Capsule PO (16:38)
--- NOTE | 2023-12-31 16:53 | NURSING ---
New orders received for Santyl to left toe wound daily.
[2023-12-31 17:03] VITALS: RESP 16; O2SAT 97
[2023-12-31] MEDS: ROSUVASTATIN CALCIUM 40 MG TABLET PO (22:18)
[2023-12-31] MEDS: Doxepin Hydrochloride 10 MG Capsule PO (22:18)
[2023-12-31] MEDS: Senna/Docusate Sodium 1 Tablet 2 TABLET PO (22:19)
[2023-12-31] MEDS: Pramipexole Di-HCl 0.5 MG Tablet PO (22:19)
[2024-01-01] MEDS: Acetaminophen 500 MG Tablet 1000 MG PO ×3 (05:10→22:38)
[2024-01-01] MEDS: Baclofen 10 MG Tablet PO ×3 (05:10→22:38)
[2024-01-01] MEDS: Ensure Plus High Protein 120 ML LIQUID PO ×3 (07:47→17:01)
[2024-01-01] MEDS: Umeclidinium Brm/Vilanterol 62.5-25 mcg Inh 1 PUFF INHALATION (07:47)
[2024-01-01] MEDS: Juven (unflavored) Packet 1 PACKET PO ×2 (07:47→17:01)
[2024-01-01] MEDS: Menthol/Lanolin/Calamine/Znox 113 GM Tube 1 APPLIC TOPICAL ×2 (07:48→22:39)
[2024-01-01] MEDS: Fluticasone 0.05% 1 SPRAY NASAL.SRY NASAL (07:48)
[2024-01-01] MEDS: Carvedilol 6.25 MG Tablet PO ×2 (07:48→22:38)
[2024-01-01] MEDS: Losartan Potassium 25 MG Tablet PO (07:48)
[2024-01-01] MEDS: APIXABAN 5 MG TABLET PO ×2 (07:48→22:37)
[2024-01-01] MEDS: Senna/Docusate Sodium 1 Tablet 2 TABLET PO ×2 (07:49→22:38)
[2024-01-01] MEDS: Collagenase 30gm Tube 1 APPLIC TOPICAL (07:49)
[2024-01-01] MEDS: Pantoprazole Sodium 20 MG Tablet PO (07:49)
[2024-01-01] MEDS: Furosemide 40 MG Tablet PO (07:49)
[2024-01-01] MEDS: Lidocaine 5% Patch 1 PATCH TOPICAL (07:49)
[2024-01-01] MEDS: Polyethylene Glycol 3350 17 GM PACKET PO (07:49)
[2024-01-01] MEDS: Finasteride 5 MG Tablet PO (07:49)
[2024-01-01 08:30] VITALS: O2SAT 96
[2024-01-01 08:37] VITALS: BMI 27.3
[2024-01-01 09:21] VITALS: BP 103/57; PULSE 78; RESP 16; TEMP 36.4; O2SAT 98
--- NOTE | 2024-01-01 13:40 | WOUNDNOTE ---
wound photo: left foot
--- NOTE | 2024-01-01 13:40 | WOUNDNOTE ---
wound photo: left heel
[2024-01-01 14:38] VITALS: O2SAT 90
[2024-01-01] MEDS: Tamsulosin HCl 0.4 MG Capsule PO (17:01)
--- NOTE | 2024-01-01 18:40 | RAD_ITS ---
EXAM: XR CHEST, 2 VIEWS CLINICAL INDICATION: Worsening hypoxia. TECHNIQUE: Frontal and lateral views of the chest. COMPARISON: No relevant prior studies available. FINDINGS: LUNGS AND PLEURAL SPACES: There is bilateral lower lobe airspace disease. No pneumothorax. No effusion. HEART: Unremarkable. Cardiac silhouette not enlarged. MEDIASTINUM: Central airways and mediastinal contour are unremarkable. BONES/JOINTS: There is no effusion identified. No acute fracture. SOFT TISSUES: Unremarkable. RAD/Chest PA and Lateral IMPRESSION: Bilateral lower lobe airspace disease which may represent atelectasis or pneumonia. Electronically Signed: Andrew Barroso MD at 22:30 EDT ,
[2024-01-01 18:47] LABS: Absolute Lymphocyte Count 2.74 X10^3/uL (0.83-4.51); Absolute Neutrophil Count 6.3 X10^3/uL (2.0-7.7); Basophil# 0.05 X10^3/uL; Basophil% 0.5 % (0-1); Eosinophil# 0.38 X10^3/uL; Eosinophils% 3.6 % (0-5); Hematocrit 42.5 % (40-54); Hemoglobin 13.6 g/dL (13.0-16.5); Lymphocyte # 2.74 X10^3/ul (0.83-4.51); Lymphocyte % 25.8 % (19-41); Mean Corpuscular Hgb 33.6 pg (27.0-32.0); Mean Corpuscular Volume 104.9 fL (80-94); Mean Platelet Vol. 10.3 fl (6.2-12.0); Monocyte# 1.13 X10^3/uL; Monocyte% 10.6 % (0-10); NRBC Flagged by Analyzer 0 % (0-5); Neutrophil # 6.28 X10^3/uL (2.7-7.7); Platelet Count 176 K/mm3 (150-450); RBC Distribution Width CV 14.9 % (11.6-14.6); RBC Distribution Width SD 58.2 fl (35.1-43.9); Red Blood Count 4.05 M/mm3 (4.6-6.2); White Blood Count 10.6 K/mm3 (4.4-11.0)
[2024-01-01 19:11] LABS: BNP,B-Type NATRIURETIC PEPTIDE 77.4 pg/mL (0-100)
[2024-01-01 19:15] LABS: ALB/GLOB Ratio 0.7 RATIO (0.9-2.4); AST(SGOT) 41 U/L (15-37); Alanine Aminotransfer ALT/SGPT 19 U/L (16-61); Alkaline Phosphatase 78 U/L (45-117); Anion Gap 3 (5-15); BUN 51 mg/dL (7-18); BUN/Creat Ratio 42.5 RATIO (10-20); Calcium,Total 9.4 mg/dL (8.5-10.1); Chloride 103 mmol/L (98-107); EST Glomerular Filtration Rate 62 mL/min (>60); Est Glom Filt Rate - Afr Amer 75 mL/min (>60); Globulin 4.2 g/dL (2.2-4.2); Glucose 99 mg/dL (74-106); Protein, Total 7.2 g/dL (6.4-8.2); Sodium Level 134 mmol/L (136-145)
[2024-01-01 21:59] LABS: Bacteria 0 SEEN /hpf (None Seen); Mucous, Urine 0 SEEN /hpf (<or=2+); Red Blood Cells-Urine 0 SEEN /hpf (0-5); White Blood Cells 0 SEEN /hpf (0-5)
[2024-01-01 22:05] LABS: Color, Urine Yellow (Yellow); Glucose, Dipstick Normal (Normal); Ketone-Dipstick Negative (Negative); Leukocyte Esterase-Dipstick Negative /ul (Negative); Nitrite-Dipstick Negative (Negative); Occult Blood-Urine Negative /ul (Negative); Protein-Dipstick Negative (Negative); Urine Bilirubin Dipstick Negative (Negative); Urine Clarity Clear (Clear); Urine Urobilinogen Normal (Normal)
[2024-01-01 22:16] LABS: Squamous Epithelial Cells - UA 0-5 SEEN /hpf (0-5)
[2024-01-01] MEDS: oxyCODONE 5 MG Tablet PO (22:37)
[2024-01-01] MEDS: Doxepin Hydrochloride 10 MG Capsule PO (22:38)
[2024-01-01] MEDS: Pramipexole Di-HCl 0.5 MG Tablet PO (22:38)
[2024-01-02] MEDS: Baclofen 10 MG Tablet PO ×3 (05:11→20:56)
[2024-01-02] MEDS: Acetaminophen 500 MG Tablet 1000 MG PO ×3 (05:11→20:57)
[2024-01-02] MEDS: oxyCODONE 5 MG Tablet PO (05:12)
[2024-01-02] MEDS: Umeclidinium Brm/Vilanterol 62.5-25 mcg Inh 1 PUFF INHALATION (07:54)
[2024-01-02] MEDS: Juven (unflavored) Packet 1 PACKET PO ×2 (07:56→17:35)
[2024-01-02] MEDS: Menthol/Lanolin/Calamine/Znox 113 GM Tube 1 APPLIC TOPICAL ×2 (07:56→20:54)
[2024-01-02] MEDS: Lidocaine 5% Patch 1 PATCH TOPICAL (07:57)
[2024-01-02] MEDS: Losartan Potassium 25 MG Tablet PO (07:58)
[2024-01-02] MEDS: Carvedilol 6.25 MG Tablet PO ×2 (07:58→20:55)
[2024-01-02] MEDS: APIXABAN 5 MG TABLET PO (07:58)
[2024-01-02] MEDS: Polyethylene Glycol 3350 17 GM PACKET PO (07:59)
[2024-01-02] MEDS: Fluticasone 0.05% 1 SPRAY NASAL.SRY NASAL (07:59)
[2024-01-02 08:00] VITALS: O2SAT 94
[2024-01-02] MEDS: Pantoprazole Sodium 20 MG Tablet PO (08:00)
[2024-01-02] MEDS: Senna/Docusate Sodium 1 Tablet 2 TABLET PO ×2 (08:00→20:56)
[2024-01-02] MEDS: Finasteride 5 MG Tablet PO (08:00)
[2024-01-02] MEDS: Ensure Plus High Protein 120 ML LIQUID PO ×3 (08:09→17:40)
[2024-01-02] MEDS: Furosemide 40 MG Tablet PO ×2 (08:13→14:09)
[2024-01-02 08:16] VITALS: BP 100/58; PULSE 72
[2024-01-02 08:30] VITALS: O2SAT 94
--- NOTE | 2024-01-02 09:13 | NURSING ---
Addendum entered by Lavern Painter 01/02/24 12:00: Surgery requesting clinical info to be faxed. Faxed info requested to pre-admit testing #[phone]. Addendum entered by Lavern Painter 01/02/24 10:08: Call back from [facility] with order from Dr. Eleuterio Brower for patient to be on 81mg aspirin daily, starting today through day of procedure. He does need to take aspirin morning of procedure. Original Note: Call from [facility] with vascular surgery, patient will be going for outpatient angiogram [facility] on Sunday01/04/24 at [facility] at 12:30. He needs to arrive by 10:30am day of procedure. -He will need to be NPO: ok for black coffee, water, plain tea until 1030 day of procedure. -Eliquis needs held from now until after procedure. Held on AUG. -Lasix and cozaar need held morning of surgery -Ok to give coreg AM of procedure They requested newest labs be sent. Labs faxed to #[phone].
[2024-01-02] MEDS: levoFLOXacin 750 MG Tablet PO (10:01)
[2024-01-02] MEDS: Aspirin 81 MG TAB.CHEW PO (12:41)
[2024-01-02] MEDS: Collagenase 30gm Tube 1 APPLIC TOPICAL (14:10)
--- NOTE | 2024-01-02 14:36 | NURSING ---
DRESSING TO PT LT FOOT DONE PER ORDERS. PT TOLERATED WELL,NO S/S OF INFECTION. A LOT OF BLE . EDUCATED PT ON KEEPING HIS LEGS/FEET UP WHILE IN RECLINER. PT STATED HE UNDER STOOD.
[2024-01-02 14:47] VITALS: BP 110/80; PULSE 80; RESP 16; TEMP 36.6; O2SAT 96
[2024-01-02] MEDS: Tamsulosin HCl 0.4 MG Capsule PO (17:35)
[2024-01-02 20:00] VITALS: PULSE 78; O2SAT 96
[2024-01-02 20:50] VITALS: BP 106/56; PULSE 76; O2SAT 96
[2024-01-02] MEDS: ROSUVASTATIN CALCIUM 40 MG TABLET PO (20:55)
[2024-01-02] MEDS: Pramipexole Di-HCl 0.5 MG Tablet PO (20:56)
[2024-01-02] MEDS: Doxepin Hydrochloride 10 MG Capsule PO (20:57)
[2024-01-03] MEDS: Furosemide 40 MG Tablet PO ×2 (05:01→09:21)
[2024-01-03] MEDS: levoFLOXacin 750 MG Tablet PO (05:01)
[2024-01-03] MEDS: Acetaminophen 500 MG Tablet 1000 MG PO ×3 (05:02→22:21)
[2024-01-03] MEDS: Baclofen 10 MG Tablet PO ×3 (05:02→22:21)
[2024-01-03] MEDS: Ensure Plus High Protein 120 ML LIQUID PO ×3 (08:27→17:17)
[2024-01-03] MEDS: Juven (unflavored) Packet 1 PACKET PO ×2 (08:28→17:17)
[2024-01-03] MEDS: Aspirin 81 MG TAB.CHEW PO (08:28)
[2024-01-03] MEDS: Lidocaine 5% Patch 1 PATCH TOPICAL (09:20)
[2024-01-03] MEDS: Umeclidinium Brm/Vilanterol 62.5-25 mcg Inh 1 PUFF INHALATION (09:20)
[2024-01-03] MEDS: Senna/Docusate Sodium 1 Tablet 2 TABLET PO ×2 (09:21→22:21)
[2024-01-03] MEDS: Finasteride 5 MG Tablet PO (09:22)
[2024-01-03] MEDS: Losartan Potassium 25 MG Tablet PO (09:22)
[2024-01-03] MEDS: Carvedilol 6.25 MG Tablet PO ×2 (09:22→22:20)
[2024-01-03] MEDS: Pantoprazole Sodium 20 MG Tablet PO (09:22)
[2024-01-03] MEDS: Polyethylene Glycol 3350 17 GM PACKET PO (09:22)
[2024-01-03] MEDS: Fluticasone 0.05% 1 SPRAY NASAL.SRY NASAL (09:23)
[2024-01-03] MEDS: Menthol/Lanolin/Calamine/Znox 113 GM Tube 1 APPLIC TOPICAL ×2 (09:25→22:22)
[2024-01-03] MEDS: Collagenase 30gm Tube 1 APPLIC TOPICAL (10:04)
[2024-01-03 14:13] VITALS: BP 92/52; PULSE 81; RESP 16; TEMP 36.3; O2SAT 97
[2024-01-03] MEDS: Tamsulosin HCl 0.4 MG Capsule PO (17:17)
[2024-01-03 18:29] VITALS: RESP 18; O2SAT 93
[2024-01-03 21:05] VITALS: BP 101/54; PULSE 70
[2024-01-03] MEDS: oxyCODONE 5 MG Tablet PO (22:17)
[2024-01-03] MEDS: Doxepin Hydrochloride 10 MG Capsule PO (22:21)
[2024-01-03] MEDS: Pramipexole Di-HCl 0.5 MG Tablet PO (22:21)
[2024-01-03] MEDS: ROSUVASTATIN CALCIUM 40 MG TABLET PO (22:21)
[2024-01-04 05:54] LABS: Absolute Lymphocyte Count 2.63 X10^3/uL (0.83-4.51); Absolute Neutrophil Count 5.7 X10^3/uL (2.0-7.7); Basophil# 0.06 X10^3/uL; Basophil% 0.6 % (0-1); Eosinophil# 0.33 X10^3/uL; Eosinophils% 3.3 % (0-5); Hematocrit 41.2 % (40-54); Hemoglobin 13.6 g/dL (13.0-16.5); Lymphocyte # 2.63 X10^3/ul (0.83-4.51); Lymphocyte % 26.2 % (19-41); Mean Platelet Vol. 10.6 fl (6.2-12.0); Monocyte# 1.21 X10^3/uL; Monocyte% 12.1 % (0-10); NRBC Flagged by Analyzer 0 % (0-5); Neutrophil # 5.74 X10^3/uL (2.7-7.7); Neutrophil % 57.2 % (47-70); Platelet Count 173 K/mm3 (150-450); RBC Distribution Width CV 14.9 % (11.6-14.6); RBC Distribution Width SD 56.3 fl (35.1-43.9)
[2024-01-04] MEDS: Baclofen 10 MG Tablet PO ×2 (06:15→21:54)
[2024-01-04] MEDS: levoFLOXacin 750 MG Tablet PO (06:15)
[2024-01-04] MEDS: Acetaminophen 500 MG Tablet 1000 MG PO ×2 (06:15→21:55)
[2024-01-04 06:54] VITALS: PULSE 72; O2SAT 95
[2024-01-04 07:04] LABS: Anion Gap 7 (5-15); BUN 63 mg/dL (7-18); BUN/Creat Ratio 59.4 RATIO (10-20); Calcium,Total 9.2 mg/dL (8.5-10.1); Chloride 101 mmol/L (98-107); Creatinine, Serum 1.06 mg/dL (0.70-1.30); EST Glomerular Filtration Rate 71 mL/min (>60); Est Glom Filt Rate - Afr Amer 86 mL/min (>60); Estimated Creatinine Clearance 55.58 ml/min; Glucose 111 mg/dL (74-106); Potassium 4.2 mmol/L (3.5-5.1); Sodium Level 133 mmol/L (136-145)
[2024-01-04] MEDS: Fluticasone 0.05% 1 SPRAY NASAL.SRY NASAL (07:40)
[2024-01-04] MEDS: Umeclidinium Brm/Vilanterol 62.5-25 mcg Inh 1 PUFF INHALATION (07:41)
[2024-01-04] MEDS: Collagenase 30gm Tube 1 APPLIC TOPICAL (07:43)
[2024-01-04] MEDS: Carvedilol 6.25 MG Tablet PO ×2 (08:35→21:54)
[2024-01-04] MEDS: Aspirin 81 MG TAB.CHEW PO (08:35)
[2024-01-04] MEDS: Pantoprazole Sodium 20 MG Tablet PO (08:37)
[2024-01-04] MEDS: Finasteride 5 MG Tablet PO (08:37)
[2024-01-04 08:41] VITALS: BP 103/59; PULSE 73
--- NOTE | 2024-01-04 09:46 | NURSING ---
Patient off unit at 0930 with for procedure.
--- NOTE | 2024-01-04 10:08 | NURSING ---
PT LEFT FLOOR AT 9:30 BY WHEEL CHAIR WITH AND HOME OXYGEN FOR APPOINTMENT IN [place] FOR ANGIOGRAM.
--- NOTE | 2024-01-04 11:02 | WOUNDNOTE ---
Pt off unit for appt.
[2024-01-04] MEDS: Juven (unflavored) Packet 1 PACKET PO (17:44)
[2024-01-04] MEDS: Tamsulosin HCl 0.4 MG Capsule PO (17:45)
[2024-01-04] MEDS: Furosemide 40 MG Tablet PO (17:46)
[2024-01-04] MEDS: Ensure Plus High Protein 120 ML LIQUID PO (17:51)
[2024-01-04 17:58] VITALS: BP 110/80; PULSE 99; RESP 18; TEMP 36.6; O2SAT 91
--- NOTE | 2024-01-04 18:08 | NURSING ---
Addendum entered by Enoch Miles 01/04/24 18:11: RETURNED AT 1715 Original Note: PT RETURNED TO FLOOR BY WHEEL CHAIR AND HIS OXYGEN WITH FROM [facility] AFTER PROCEDURE. SEE NEW ORDERS.
[2024-01-04] MEDS: ROSUVASTATIN CALCIUM 40 MG TABLET PO (21:54)
[2024-01-04] MEDS: Menthol/Lanolin/Calamine/Znox 113 GM Tube 1 APPLIC TOPICAL (21:54)
[2024-01-04] MEDS: Pramipexole Di-HCl 0.5 MG Tablet PO (21:55)
[2024-01-04] MEDS: Doxepin Hydrochloride 10 MG Capsule PO (21:55)
[2024-01-04] MEDS: Senna/Docusate Sodium 1 Tablet 2 TABLET PO (21:55)
[2024-01-05] MEDS: LORazepam 0.5 MG Tablet PO (04:06)
[2024-01-05] MEDS: levoFLOXacin 750 MG Tablet PO (06:16)
[2024-01-05] MEDS: Acetaminophen 500 MG Tablet 1000 MG PO ×3 (06:17→21:45)
[2024-01-05] MEDS: Baclofen 10 MG Tablet PO ×3 (06:17→21:46)
[2024-01-05] MEDS: Furosemide 40 MG Tablet PO ×2 (06:17→13:11)
[2024-01-05] MEDS: Ensure Plus High Protein 120 ML LIQUID PO ×3 (07:50→17:35)
[2024-01-05] MEDS: Menthol/Lanolin/Calamine/Znox 113 GM Tube 1 APPLIC TOPICAL ×2 (07:50→21:44)
[2024-01-05] MEDS: Umeclidinium Brm/Vilanterol 62.5-25 mcg Inh 1 PUFF INHALATION (07:50)
[2024-01-05] MEDS: Juven (unflavored) Packet 1 PACKET PO ×2 (07:50→17:35)
[2024-01-05] MEDS: Senna/Docusate Sodium 1 Tablet 2 TABLET PO ×2 (07:51→21:44)
[2024-01-05] MEDS: Pantoprazole Sodium 20 MG Tablet PO (07:51)
[2024-01-05] MEDS: Lidocaine 5% Patch 1 PATCH TOPICAL (07:51)
[2024-01-05] MEDS: Fluticasone 0.05% 1 SPRAY NASAL.SRY NASAL (07:51)
[2024-01-05] MEDS: Polyethylene Glycol 3350 17 GM PACKET PO (07:51)
[2024-01-05] MEDS: Finasteride 5 MG Tablet PO (07:51)
[2024-01-05 10:51] VITALS: BP 90/54; PULSE 82; RESP 18; TEMP 36.5; O2SAT 95
[2024-01-05 11:20] VITALS: O2SAT 92
[2024-01-05] MEDS: Tamsulosin HCl 0.4 MG Capsule PO (17:35)
[2024-01-05 21:00] VITALS: PULSE 80; O2SAT 94
--- NOTE | 2024-01-05 21:37 | NURSING ---
Dressing to right AC changed per order, no drainage noted, bruising noted to area, No white piece of tape present at site, new clean, dry dressing applied,
[2024-01-05 21:45] VITALS: BP 111/54; PULSE 75
[2024-01-05] MEDS: Carvedilol 6.25 MG Tablet PO (21:45)
[2024-01-05] MEDS: Doxepin Hydrochloride 10 MG Capsule PO (21:46)
[2024-01-05] MEDS: ROSUVASTATIN CALCIUM 40 MG TABLET PO (21:47)
[2024-01-05] MEDS: Pramipexole Di-HCl 0.5 MG Tablet PO (21:47)
[2024-01-06] MEDS: oxyCODONE 5 MG Tablet PO (03:59)
--- NOTE | 2024-01-06 04:02 | NURSING ---
Pt called out having pain in lle. Oxycodone 10 mg given as ordered po. Pt states pain is 12 on 1-10 scale. Will continue to monitor.
[2024-01-06] MEDS: Furosemide 40 MG Tablet PO ×2 (05:23→14:13)
[2024-01-06] MEDS: levoFLOXacin 750 MG Tablet PO (05:23)
[2024-01-06] MEDS: Acetaminophen 500 MG Tablet 1000 MG PO ×3 (05:24→21:08)
[2024-01-06] MEDS: Baclofen 10 MG Tablet PO ×3 (05:24→21:09)
--- NOTE | 2024-01-06 05:33 | NURSING ---
Patient reports pain still 10/10, states PRN Oxy helped very little, routine Tylenol and Baclofen given at time.
--- NOTE | 2024-01-06 06:53 | NURSING ---
Patient voices pain relief from routine Tylenol and Baclofen, rates pain 3/10 at time.
[2024-01-06] MEDS: Juven (unflavored) Packet 1 PACKET PO ×2 (08:27→17:19)
[2024-01-06] MEDS: Ensure Plus High Protein 120 ML LIQUID PO ×3 (08:31→17:20)
[2024-01-06] MEDS: Lidocaine 5% Patch 1 PATCH TOPICAL (09:59)
[2024-01-06] MEDS: Fluticasone 0.05% 1 SPRAY NASAL.SRY NASAL (09:59)
[2024-01-06] MEDS: Pantoprazole Sodium 20 MG Tablet PO (10:00)
[2024-01-06] MEDS: Senna/Docusate Sodium 1 Tablet 2 TABLET PO ×2 (10:00→21:07)
[2024-01-06] MEDS: Menthol/Lanolin/Calamine/Znox 113 GM Tube 1 APPLIC TOPICAL ×2 (10:00→21:03)
[2024-01-06] MEDS: Carvedilol 6.25 MG Tablet PO ×2 (10:00→21:09)
[2024-01-06] MEDS: Umeclidinium Brm/Vilanterol 62.5-25 mcg Inh 1 PUFF INHALATION (10:00)
[2024-01-06] MEDS: Losartan Potassium 25 MG Tablet PO (10:00)
[2024-01-06] MEDS: Finasteride 5 MG Tablet PO (10:00)
[2024-01-06] MEDS: Polyethylene Glycol 3350 17 GM PACKET PO (10:01)
--- NOTE | 2024-01-06 12:16 | NURSING ---
Pt requiring more O2 with therapy. Pt was on 5 L NC and SpO2 dropped to 75% on 5 L NC with ambulation. Dr. Stewart notified and N.O. for chest x-ray.
--- NOTE | 2024-01-06 12:40 | RAD_ITS ---
EXAM: XR CHEST, 2 VIEWS CLINICAL INDICATION: Increased SOB TECHNIQUE: Frontal and lateral views of the chest. COMPARISON: 01/01/2024 FINDINGS: LUNGS AND PLEURAL SPACES: Bibasilar pulmonary opacities may be scarring, atelectasis, or pneumonia. Hyperinflated lungs suggesting COPD. No pneumothorax. No effusion. HEART: Cardiac valve replacement. MEDIASTINUM: Central airways and mediastinal contour are unremarkable. BONES/JOINTS: Median sternotomy. Postoperative changes in the lower spine and degenerative changes elsewhere in the spine and shoulders. No acute fracture. SOFT TISSUES: No significant abnormality. UPPER ABDOMEN: IVC filter is identified. RAD/Chest PA and Lateral IMPRESSION: 1. Bibasilar pulmonary opacities may be scarring, atelectasis, or pneumonia. Hyperinflated lungs suggesting COPD. 2. IVC filter is identified. Recommend determining if there is a management place in place for this IVC filter. If not, then recommend referral to an interventional radiologist on a nonemergent basis for evaluation. 3. Cardiac valve replacement. Electronically Signed: Bobo Jeffers DO at 12:59 EDT ,
[2024-01-06 14:21] VITALS: BP 98/53; PULSE 84; RESP 18; TEMP 36.4; O2SAT 92
[2024-01-06] MEDS: Tamsulosin HCl 0.4 MG Capsule PO (17:19)
[2024-01-06 21:00] VITALS: PULSE 74; O2SAT 99
[2024-01-06] MEDS: Pramipexole Di-HCl 0.5 MG Tablet PO (21:08)
[2024-01-06] MEDS: ROSUVASTATIN CALCIUM 40 MG TABLET PO (21:09)
[2024-01-06] MEDS: Doxepin Hydrochloride 10 MG Capsule PO (21:09)
[2024-01-06 21:15] VITALS: BP 105/59; PULSE 74; O2SAT 99
--- NOTE | 2024-01-07 00:08 | NURSING ---
Resident calls for snack cookies. Sitting up in recliner w/ O2 in use and BLE dependent. Given two packets of Sandy Doone cookies. Call light w/ in reach.
[2024-01-07] MEDS: levoFLOXacin 750 MG Tablet PO (05:04)
[2024-01-07] MEDS: Acetaminophen 500 MG Tablet 1000 MG PO ×3 (05:04→22:03)
[2024-01-07] MEDS: Baclofen 10 MG Tablet PO ×3 (05:04→22:03)
[2024-01-07] MEDS: Furosemide 40 MG Tablet PO (05:04)
[2024-01-07 08:02] VITALS: O2SAT 92
[2024-01-07] MEDS: Juven (unflavored) Packet 1 PACKET PO ×2 (08:08→17:49)
[2024-01-07] MEDS: Ensure Plus High Protein 120 ML LIQUID PO ×3 (08:08→17:59)
[2024-01-07] MEDS: Polyethylene Glycol 3350 17 GM PACKET PO (08:08)
[2024-01-07] MEDS: Fluticasone 0.05% 1 SPRAY NASAL.SRY NASAL (08:09)
[2024-01-07] MEDS: Lidocaine 5% Patch 1 PATCH TOPICAL (08:11)
[2024-01-07] MEDS: Menthol/Lanolin/Calamine/Znox 113 GM Tube 1 APPLIC TOPICAL ×2 (08:12→22:06)
[2024-01-07] MEDS: Finasteride 5 MG Tablet PO (08:13)
[2024-01-07] MEDS: Pantoprazole Sodium 20 MG Tablet PO (08:13)
[2024-01-07] MEDS: Senna/Docusate Sodium 1 Tablet 2 TABLET PO ×2 (08:14→22:03)
[2024-01-07] MEDS: Carvedilol 6.25 MG Tablet PO ×2 (08:23→22:04)
[2024-01-07] MEDS: Losartan Potassium 25 MG Tablet PO (08:24)
[2024-01-07 08:28] VITALS: BP 112/60; PULSE 76
--- NOTE | 2024-01-07 09:58 | NURSING ---
Left VM with RN for Dr. Brower asking for clarification on dressing orders after first 5 days and if ok to re-start eliquis. Await return call.
[2024-01-07] MEDS: Umeclidinium Brm/Vilanterol 62.5-25 mcg Inh 1 PUFF INHALATION (10:06)
[2024-01-07 10:10] VITALS: PULSE 83; RESP 20; O2SAT 94
--- NOTE | 2024-01-07 10:55 | NURSING ---
PT LEFT FOOT HAS ACTIVE BLEEDING ON DRESSING AROUND BIG TOE AREA AND THE HOLE SOLE OF FOOT HAS DRIED BLOOD ON DRESSING. PRINTED OUT ORDERS NOT VERY CLEAR. ON JAMES WILL CALL SURGEON TO CLARIFY ORDERS AND WHEN TO START ELIQUIS BACK UP. CALLED NO VILLALTA/WOUND NURSE,AND WILL BE OVER TO LOOK AT FOOT.
--- NOTE | 2024-01-07 11:37 | WOUNDNOTE ---
wound photo: left foot
--- NOTE | 2024-01-07 11:38 | WOUNDNOTE ---
wound photo: left heel
--- NOTE | 2024-01-07 12:32 | NURSING ---
Spoke with nurse Peres at Dr. Brower's office, confirmed patient to be taking Eliquis. Tried to clarify wound dressing, staff unclear other than orders already sent with patient. Nimisha wound RN in to assess today, replaced outer DSD.
--- NOTE | 2024-01-07 13:49 | NURSING ---
Addendum entered by Lavern Painter 01/07/24 15:37: Dr. Stewart also ordered IV lasix BID d/t BLE edema, lung sounds, and increased 02 demands with activity. Original Note: Dr. Stewart by to see patient, gave orders for medrol dose pack, marisol wraps to BLE, CTA chest to rule out PE. Updated him that patient continues to desat with ambulation and seems more confused than normal per TAR AND AMMONIA PUMP OPERATOR.
[2024-01-07] MEDS: Furosemide 40 MG/4 ML Vial IV (15:10)
[2024-01-07 15:32] VITALS: BP 102/64; PULSE 80; RESP 16; TEMP 36.5; O2SAT 94
--- NOTE | 2024-01-07 16:21 | NURSING ---
Called for approval for chest CTA, clinical info requested. Clinical info faxed to [phone]. Case #[id number].
[2024-01-07] MEDS: MethylPREDNISolone DosePak 4 MG BOX PO ×2 (17:48→22:04)
[2024-01-07] MEDS: Tamsulosin HCl 0.4 MG Capsule PO (17:49)
[2024-01-07] MEDS: oxyCODONE 5 MG Tablet PO ×2 (17:56→22:02)
--- NOTE | 2024-01-07 20:26 | PN.TCU_ITS ---
Subjective Subjective Resident seen, examined for regulator visit. Rosanna present today. She is wondering why resident requiring so much oxygen. He is currently on 6 liters of oxygen per nasal cannula. He also has swelling of bilateral lower extremities, he is unable to put his feet up comfortably. His Chest X-ray showed bilateral infiltrates versus atelectasis and he is currently on Levaquin for pneumonia. Resident is doing well with therapy, if his hypoxia resolved, he could go home with his . Objective Data Objective Data Vital Signs: Vital Signs Temp Pulse Resp BP Pulse Ox O2 Del Method O2 Flow Rate 97.7 F L 80 16 102/64 94 Nasal Cannula 3 01/07/24 15:32 01/07/24 15:32 01/07/24 15:32 01/07/24 15:32 01/07/24 15:32 01/07/24 15:32 01/07/24 16:13 Oxygen Flow Rate (L/min) 3 Oxygen Delivery Method Nasal Cannula Weight: 84.187 kg Body Mass Index (BMI) 27.3 Intake & Output: Intake and Output for Last 24 Hours 01/05/24 01/06/24 01/07/24 23:59 23:59 23:59 Intake Total 720 / 720 800 / 800 480 / 480 Balance 720 / 720 800 / 800 480 / 480 Lab / Micro Data 01/04/24 05:19 01/04/24 05:19 Micro: Microbiology 01/01/24 21:50 Urine, Catheterized Urine Culture - Final Culture exhibits no growth. 12/21/23 10:30 Urine, Clean Catch Urine Culture - Final Culture exhibits no growth. 12/21/23 05:38 Nasal Secretion SARS-CoV-2 Antigen (Rapid) - Final Physical Exam Const alert General Appearance: cooperative HEENT normocephalic Eyes PERRL and EOMs intact bilaterally Neck supple, no JVD and no carotid bruits Resp normal air movement Auscultation: crackles bilateral and diffuse (Dry sounding. ) Cardio regular rate and regular rhythm GI normal to inspection, nondistended, normoactive bowel sounds, non-tender and non-distended GI Narrative: Bilateral groin Prevena wound VAC. Extremity normal capillary refill Extremity Narrative: Left lower extremity dressed. General Extremity: Negative for edema Skin no rashes or lesions noted General Skin Exam: no breakdown Psych affect normal Appearance: appropriate Assessment & Plan Assessment/Plan (1) Debility: (2) Peripheral vascular disease: (3) Dry gangrene: (4) S/P femoral-femoral bypass surgery: (5) Status post amputation of left great toe: (6) COPD (chronic obstructive pulmonary disease): (7) History of transcatheter aortic valve replacement (TAVR): (8) Essential (primary) hypertension: (9) Deep vein thrombosis: (10) Iron deficiency anemia: (11) Gastroesophageal reflux disease: (12) Hyperlipidemia: PLAN: Plan 78 year old male with below past medical history hospitalized for peripheral vascular disease, underwent left fem fem bypass surgery, left great toe amputation 12/07/[address] Brower, admitted to TCU with debility, here for rehabilitation, strengthening, prior to discharge home with . * Debility - PT/OT. * Pain - Tylenol 1000mg q8 prn pain (1-3), Oxycodone 5-10mg q4 prn pain (4-10), Lidoderm patch 1 patch topical daily. * Bowel - Miralax 17gm daily, senna/colace 2 tablets bid, Magnesium citrate 300ml daily prn. * Adult immunization - Administer pneumonia vaccine, covid vaccine, flu vaccine as appropriate. * DVT prophylaxis - on Eliquis. * Pneumonia - Levaquin 750mg daily thru 01/10/2024. * Hypoxia - Order CTA chest to rule out DVT, add Medrol dose pack, possible pulmonary fibrosis. * COPD - Incruse 1 puff daily, Albuterol 2 puffs q4h prn. * DVT/PE/PVD - Eliquis 5mg bid. * Muscle spasm - Baclofen 10mg tid. * Coronary artery disease - Coreg 6.25mg bid, Losartan 25mg daily, Eliquis 5mg bid, NTG 0.4mg sl q5m prn. * Nutrition - Ensure Plus 120mL po tidcm, Jacky 1 packet po bidcm. * BPH - Finasteride 5mg daily, Tamsulosin 0.4mg daily. * Allergic rhinitis - Fluticasone 0.5% 1 spray nasal daily. * Edema/fluid overload - Furosemide 40mg iv bid, MAEVE wraps bilateral extremities, daily weights. * GERD - Pantoprazole 20mg daily. * Hyperlipidemia - Rosuvastatin 40mg qhs. * Wound - Collagenase topical, wound nurse consult. * Insomnia - Doxepion 10mg qhs. * Anxiety/restlessness/sleep - Lorazepam 0.5mg q4h prn. * Skin irritation - Calmoseptine topical bid. * Restless leg syndrome - Mirapex 0.5mg qhs.
[2024-01-07] MEDS: APIXABAN 5 MG TABLET PO (22:03)
[2024-01-07] MEDS: ROSUVASTATIN CALCIUM 40 MG TABLET PO (22:03)
[2024-01-07] MEDS: Doxepin Hydrochloride 10 MG Capsule PO (22:04)
[2024-01-07] MEDS: Pramipexole Di-HCl 0.5 MG Tablet PO (22:04)
--- NOTE | 2024-01-07 23:46 | NURSING ---
CTA approved by insurance and paperwork faxed to our unit.
[2024-01-08] VITALS (8 sets, daily range): BP systolic 95–117; BP diastolic 59–75; PULSE 68–92; RESP 14–18; TEMP 36.1–36.6; O2SAT 87–94; BMI 28.0
--- NOTE | 2024-01-08 00:10 | NURSING ---
Imaging called and reports they need a written order per Dr. Stewart and GFR labs drawn prior to CT. Paperwork left for Dr. Stewart on clipboard.
[2024-01-08] MEDS: 0.9% Saline Lock 10 ML Syringe IV ×2 (04:55→21:11)
[2024-01-08] MEDS: Furosemide 40 MG/4 ML Vial IV ×2 (05:02→13:39)
[2024-01-08] MEDS: Acetaminophen 500 MG Tablet 1000 MG PO ×3 (05:03→21:06)
[2024-01-08] MEDS: Baclofen 10 MG Tablet PO ×3 (05:03→21:05)
[2024-01-08] MEDS: levoFLOXacin 750 MG Tablet PO (05:03)
--- NOTE | 2024-01-08 05:29 | NURSING ---
gauze dressing changed d/t drainage noted, drainage was davidson -yellow in color and a moderate amt . marisol wraps reapplied to legs.
[2024-01-08 08:18] LABS: Anion Gap 6 (5-15); BUN 46 mg/dL (7-18); BUN/Creat Ratio 47.3 RATIO (10-20); Chloride 99 mmol/L (98-107); Creatinine, Serum 0.97 mg/dL (0.70-1.30); EST Glomerular Filtration Rate 79 mL/min (>60); Est Glom Filt Rate - Afr Amer 95 mL/min (>60); Estimated Creatinine Clearance 60.74 ml/min; Glucose 134 mg/dL (74-106); Potassium 3.9 mmol/L (3.5-5.1); Sodium Level 134 mmol/L (136-145)
[2024-01-08] MEDS: Senna/Docusate Sodium 1 Tablet 2 TABLET PO ×2 (09:24→21:05)
[2024-01-08] MEDS: MethylPREDNISolone DosePak 4 MG BOX PO ×4 (09:24→21:06)
[2024-01-08] MEDS: Losartan Potassium 25 MG Tablet PO (09:24)
[2024-01-08] MEDS: Polyethylene Glycol 3350 17 GM PACKET PO (09:24)
[2024-01-08] MEDS: Carvedilol 6.25 MG Tablet PO ×2 (09:24→21:05)
[2024-01-08] MEDS: Juven (unflavored) Packet 1 PACKET PO ×2 (09:24→18:00)
[2024-01-08] MEDS: Finasteride 5 MG Tablet PO (09:24)
[2024-01-08] MEDS: APIXABAN 5 MG TABLET PO ×2 (09:24→21:06)
[2024-01-08] MEDS: Fluticasone 0.05% 1 SPRAY NASAL.SRY NASAL (09:25)
[2024-01-08] MEDS: Umeclidinium Brm/Vilanterol 62.5-25 mcg Inh 1 PUFF INHALATION (09:25)
[2024-01-08] MEDS: Lidocaine 5% Patch 1 PATCH TOPICAL (09:25)
[2024-01-08] MEDS: Ensure Plus High Protein 120 ML LIQUID PO ×3 (09:33→18:00)
[2024-01-08] MEDS: Pantoprazole Sodium 20 MG Tablet PO (09:33)
[2024-01-08] MEDS: Menthol/Lanolin/Calamine/Znox 113 GM Tube 1 APPLIC TOPICAL ×2 (09:33→21:10)
--- NOTE | 2024-01-08 10:50 | NURSING ---
Discussed pulmonology appt with patient, he gave # to his guest experience representative Dr. Mensah. Spoke with , she's fine to take him to appt. Called and spoke directly with Dr. Mensah, updated him on [address] scan. Scheduled for appt 01/14/24 at 3:30.
--- NOTE | 2024-01-08 11:19 | CASEMGMT ---
Social Work BIMS (04/08) and PHQ-2 (0) completed for MDS assessment. SW updated pt insurance review is still pending from 12/25. Pt agreeable to remain and await outcome of insurance. Grace Haynes, DRY CLIPPER TENDER [employer]
[2024-01-08] MEDS: Tamsulosin HCl 0.4 MG Capsule PO (18:00)
[2024-01-08] MEDS: Pramipexole Di-HCl 0.5 MG Tablet PO (21:05)
[2024-01-08] MEDS: Doxepin Hydrochloride 10 MG Capsule PO (21:05)
[2024-01-08] MEDS: ROSUVASTATIN CALCIUM 40 MG TABLET PO (21:11)
[2024-01-08] MEDS: Furosemide 100 MG/10 ML Vial 80 MG IV (21:14)
[2024-01-09] MEDS: Baclofen 10 MG Tablet PO ×3 (05:02→21:17)
[2024-01-09] MEDS: Furosemide 100 MG/10 ML Vial 80 MG IV ×2 (05:02→13:53)
[2024-01-09] MEDS: Acetaminophen 500 MG Tablet 1000 MG PO ×3 (05:02→21:17)
[2024-01-09 05:06] VITALS: BP 117/63; PULSE 70; RESP 18; TEMP 35.9; O2SAT 97
[2024-01-09] MEDS: 0.9% Saline Lock 10 ML Syringe IV ×3 (05:09→21:19)
[2024-01-09 05:10] VITALS: BMI 27.5
[2024-01-09 05:37] VITALS: PULSE 70; RESP 18; O2SAT 93
[2024-01-09] MEDS: oxyCODONE 5 MG Tablet PO (05:52)
[2024-01-09 06:00] LABS: Anion Gap 8 (5-15); BUN 55 mg/dL (7-18); Calcium,Total 9.2 mg/dL (8.5-10.1); Chloride 98 mmol/L (98-107); EST Glomerular Filtration Rate 68 mL/min (>60); Est Glom Filt Rate - Afr Amer 83 mL/min (>60); Estimated Creatinine Clearance 53.56 ml/min; Glucose 118 mg/dL (74-106); Potassium 3.6 mmol/L (3.5-5.1); Sodium Level 131 mmol/L (136-145)
--- NOTE | 2024-01-09 07:56 | MDS.RN ---
Information for the MDS was obtained from review of the clinical record, interview of resident, staff, and direct observation of resident?s care.
[2024-01-09 08:38] VITALS: O2SAT 95
[2024-01-09] MEDS: Fluticasone 0.05% 1 SPRAY NASAL.SRY NASAL (10:26)
[2024-01-09] MEDS: Umeclidinium Brm/Vilanterol 62.5-25 mcg Inh 1 PUFF INHALATION (10:26)
[2024-01-09] MEDS: MethylPREDNISolone DosePak 4 MG BOX PO ×4 (10:27→21:15)
[2024-01-09] MEDS: Menthol/Lanolin/Calamine/Znox 113 GM Tube 1 APPLIC TOPICAL ×2 (10:27→22:00)
[2024-01-09] MEDS: Lidocaine 5% Patch 1 PATCH TOPICAL (10:28)
[2024-01-09] MEDS: Juven (unflavored) Packet 1 PACKET PO ×2 (10:28→18:04)
[2024-01-09] MEDS: Polyethylene Glycol 3350 17 GM PACKET PO (10:28)
[2024-01-09] MEDS: APIXABAN 5 MG TABLET PO ×2 (10:30→21:17)
[2024-01-09] MEDS: Losartan Potassium 25 MG Tablet PO (10:31)
[2024-01-09] MEDS: Carvedilol 6.25 MG Tablet PO ×2 (10:31→21:16)
[2024-01-09] MEDS: Finasteride 5 MG Tablet PO (10:31)
[2024-01-09] MEDS: Pantoprazole Sodium 20 MG Tablet PO (10:32)
[2024-01-09] MEDS: Senna/Docusate Sodium 1 Tablet 2 TABLET PO ×2 (10:33→21:16)
[2024-01-09] MEDS: Ensure Plus High Protein 120 ML LIQUID PO ×3 (10:40→18:14)
[2024-01-09 10:47] VITALS: BP 113/66; PULSE 79
[2024-01-09] MEDS: Potassium Chloride Oral Tablet 20 MEQ 40 MEQ PO ×2 (11:20→18:04)
[2024-01-09 13:37] VITALS: BP 108/52; PULSE 78; RESP 16; TEMP 36.1; O2SAT 98
--- NOTE | 2024-01-09 15:54 | NURSING ---
PAWAN RN,WOUND NURSE IN TO CHANGE DRESSING TO PT LT FOOT/TOE.
[2024-01-09] MEDS: Tamsulosin HCl 0.4 MG Capsule PO (18:06)
[2024-01-09] MEDS: ROSUVASTATIN CALCIUM 40 MG TABLET PO (21:17)
[2024-01-09] MEDS: Pramipexole Di-HCl 0.5 MG Tablet PO (21:17)
[2024-01-09] MEDS: Doxepin Hydrochloride 10 MG Capsule PO (21:17)
[2024-01-10] MEDS: oxyCODONE 5 MG Tablet PO ×2 (04:07→09:39)
[2024-01-10 05:25] VITALS: BMI 27.6
[2024-01-10] MEDS: Acetaminophen 500 MG Tablet 1000 MG PO ×2 (05:52→22:30)
[2024-01-10] MEDS: Baclofen 10 MG Tablet PO ×2 (05:52→22:28)
[2024-01-10 06:03] LABS: Anion Gap 7 (5-15); BUN 63 mg/dL (7-18); BUN/Creat Ratio 56.8 RATIO (10-20); Calcium,Total 8.9 mg/dL (8.5-10.1); Chloride 98 mmol/L (98-107); Creatinine, Serum 1.11 mg/dL (0.70-1.30); EST Glomerular Filtration Rate 68 mL/min (>60); Est Glom Filt Rate - Afr Amer 82 mL/min (>60); Estimated Creatinine Clearance 57.36 ml/min; Glucose 120 mg/dL (74-106); Potassium 4.3 mmol/L (3.5-5.1); Sodium Level 134 mmol/L (136-145)
[2024-01-10] MEDS: Juven (unflavored) Packet 1 PACKET PO (09:26)
[2024-01-10] MEDS: MethylPREDNISolone DosePak 4 MG BOX PO ×2 (09:26→22:29)
[2024-01-10] MEDS: Potassium Chloride Oral Tablet 20 MEQ 40 MEQ PO ×2 (09:26→17:51)
[2024-01-10] MEDS: Umeclidinium Brm/Vilanterol 62.5-25 mcg Inh 1 PUFF INHALATION (09:26)
[2024-01-10] MEDS: Fluticasone 0.05% 1 SPRAY NASAL.SRY NASAL (09:27)
[2024-01-10] MEDS: Menthol/Lanolin/Calamine/Znox 113 GM Tube 1 APPLIC TOPICAL ×2 (09:27→22:22)
[2024-01-10] MEDS: APIXABAN 5 MG TABLET PO ×2 (09:28→22:24)
[2024-01-10] MEDS: Lidocaine 5% Patch 1 PATCH TOPICAL (09:29)
[2024-01-10] MEDS: Finasteride 5 MG Tablet PO (09:29)
[2024-01-10] MEDS: Pantoprazole Sodium 20 MG Tablet PO (09:29)
[2024-01-10] MEDS: Carvedilol 6.25 MG Tablet PO ×2 (09:42→22:24)
[2024-01-10] MEDS: Losartan Potassium 25 MG Tablet PO (09:42)
[2024-01-10] MEDS: Ensure Plus High Protein 120 ML LIQUID PO (09:44)
[2024-01-10 09:48] VITALS: BP 110/64; PULSE 75
--- NOTE | 2024-01-10 11:40 | NURSING ---
Patient off unit with via WC to appt.
[2024-01-10 13:14] VITALS: BP 111/62; PULSE 71; RESP 18; TEMP 36.1; O2SAT 90
--- NOTE | 2024-01-10 15:40 | NURSING ---
This Nurse received phone Call from Dr. Stewart and received orders to Insert Hudson cath and Strict I&O. Pt missed Am Dose of Lasix give when pt returns from his Cardiology appt. Order read back.
--- NOTE | 2024-01-10 17:43 | NURSING ---
PT RETURNED FROM APPOINTMENT IN [place]USH[place] SEEN BY CARDIOLOGY WITH AT 1730. DR RUSSO IN TO SEE PT. PT BROUGHT BACK A 16 OZ MILK SHAKE. OK PER FOR PT TO HAVE MILK SHAKE AND NOT GIVE ALEC AND ENSURE TILL TOMORROW DUE TO PT WOULD BE OVER FLUID RESTRICTION. RN AWARE
[2024-01-10] MEDS: Tamsulosin HCl 0.4 MG Capsule PO (17:51)
[2024-01-10] MEDS: Furosemide 100 MG/10 ML Vial 80 MG IV (18:21)
--- NOTE | 2024-01-10 18:22 | NURSING ---
16 FR LAMBERT INSERTED AT 1815 PER ORDER. PT TOLERATED WELL AND URINE IS DRAINING INTO BAG. PT BACK TO RECLINER WITH ALARM. RN IN ROOM,VITALS DONE, IV LASIX BEING GIVEN AT THIS TIME BY RN.
[2024-01-10] MEDS: 0.9% Saline Lock 10 ML Syringe IV ×2 (18:23→22:31)
[2024-01-10 18:33] VITALS: BP 100/58; PULSE 78; RESP 18; TEMP 36.4; O2SAT 97
[2024-01-10 21:00] VITALS: PULSE 82; O2SAT 95
[2024-01-10] MEDS: ROSUVASTATIN CALCIUM 40 MG TABLET PO (22:25)
[2024-01-10] MEDS: Pramipexole Di-HCl 0.5 MG Tablet PO (22:29)
[2024-01-10] MEDS: Doxepin Hydrochloride 10 MG Capsule PO (22:30)
[2024-01-10] MEDS: Senna/Docusate Sodium 1 Tablet 2 TABLET PO (22:30)
[2024-01-10 22:38] VITALS: BP 106/57; PULSE 82; O2SAT 95
[2024-01-11] MEDS: oxyCODONE 5 MG Tablet PO ×3 (02:06→16:45)
[2024-01-11 04:35] VITALS: PULSE 78; O2SAT 97
[2024-01-11] MEDS: Baclofen 10 MG Tablet PO ×3 (05:01→22:04)
[2024-01-11] MEDS: Acetaminophen 500 MG Tablet 1000 MG PO ×3 (05:01→22:06)
[2024-01-11] MEDS: Furosemide 100 MG/10 ML Vial 80 MG IV ×2 (05:02→13:48)
[2024-01-11] MEDS: 0.9% Saline Lock 10 ML Syringe IV ×3 (05:03→21:57)
[2024-01-11 05:15] VITALS: BP 104/62; PULSE 73
[2024-01-11 05:59] LABS: Absolute Lymphocyte Count 2.27 X10^3/uL (0.83-4.51); Absolute Neutrophil Count 9.9 X10^3/uL (2.0-7.7); Basophil# 0.07 X10^3/uL; Basophil% 0.5 % (0-1); Eosinophil# 0.23 X10^3/uL; Eosinophils% 1.6 % (0-5); Hemoglobin 13.5 g/dL (13.0-16.5); Lymphocyte # 2.27 X10^3/ul (0.83-4.51); Lymphocyte % 16.2 % (19-41); Mean Corp Hgb Conc 32.1 g/dL (32-36); Mean Corpuscular Hgb 32.9 pg (27.0-32.0); Mean Corpuscular Volume 102.4 fL (80-94); Mean Platelet Vol. 11.1 fl (6.2-12.0); Monocyte# 1.46 X10^3/uL; Monocyte% 10.4 % (0-10); NRBC Flagged by Analyzer 0 % (0-5); Neutrophil # 9.87 X10^3/uL (2.7-7.7); Neutrophil % 70.7 % (47-70); Platelet Count 180 K/mm3 (150-450); RBC Distribution Width CV 15.4 % (11.6-14.6); RBC Distribution Width SD 58.4 fl (35.1-43.9)
[2024-01-11 06:00] VITALS: BMI 27.3
[2024-01-11 07:07] LABS: Anion Gap 8 (5-15); BUN 56 mg/dL (7-18); Calcium,Total 9.2 mg/dL (8.5-10.1); Chloride 103 mmol/L (98-107); Creatinine, Serum 1.12 mg/dL (0.70-1.30); EST Glomerular Filtration Rate 67 mL/min (>60); Est Glom Filt Rate - Afr Amer 81 mL/min (>60); Glucose 110 mg/dL (74-106); Potassium 4.6 mmol/L (3.5-5.1); Sodium Level 138 mmol/L (136-145)
[2024-01-11 07:48] VITALS: O2SAT 91
[2024-01-11] MEDS: Polyethylene Glycol 3350 17 GM PACKET PO (08:43)
[2024-01-11] MEDS: Lidocaine 5% Patch 1 PATCH TOPICAL (08:43)
[2024-01-11] MEDS: Juven (unflavored) Packet 1 PACKET PO ×2 (08:43→16:43)
[2024-01-11] MEDS: Carvedilol 6.25 MG Tablet PO ×2 (08:44→22:02)
[2024-01-11] MEDS: Umeclidinium Brm/Vilanterol 62.5-25 mcg Inh 1 PUFF INHALATION (08:44)
[2024-01-11] MEDS: Potassium Chloride Oral Tablet 20 MEQ 40 MEQ PO ×2 (08:44→16:43)
[2024-01-11] MEDS: Pantoprazole Sodium 20 MG Tablet PO (08:44)
[2024-01-11] MEDS: APIXABAN 5 MG TABLET PO ×2 (08:44→22:04)
[2024-01-11] MEDS: Senna/Docusate Sodium 1 Tablet 2 TABLET PO ×2 (08:44→22:05)
[2024-01-11] MEDS: Finasteride 5 MG Tablet PO (08:44)
[2024-01-11] MEDS: Fluticasone 0.05% 1 SPRAY NASAL.SRY NASAL (08:44)
[2024-01-11] MEDS: Menthol/Lanolin/Calamine/Znox 113 GM Tube 1 APPLIC TOPICAL ×2 (08:45→22:01)
[2024-01-11] MEDS: Losartan Potassium 25 MG Tablet PO (11:17)
[2024-01-11] MEDS: Metolazone 2.5 MG Tablet PO (13:01)
[2024-01-11 13:38] VITALS: BP 102/59; PULSE 75; RESP 18; TEMP 36.2; O2SAT 99
[2024-01-11 16:31] VITALS: O2SAT 93
[2024-01-11] MEDS: Tamsulosin HCl 0.4 MG Capsule PO (16:43)
[2024-01-11] MEDS: Pramipexole Di-HCl 0.5 MG Tablet PO (22:04)
[2024-01-11] MEDS: ROSUVASTATIN CALCIUM 40 MG TABLET PO (22:04)
[2024-01-11] MEDS: Doxepin Hydrochloride 10 MG Capsule PO (22:05)
[2024-01-11 22:14] VITALS: BP 105/55; PULSE 75; O2SAT 98
[2024-01-12] MEDS: oxyCODONE 5 MG Tablet PO ×3 (01:23→22:17)
[2024-01-12 03:20] VITALS: PULSE 72; O2SAT 99
[2024-01-12] MEDS: Baclofen 10 MG Tablet PO ×3 (05:01→22:10)
[2024-01-12] MEDS: Acetaminophen 500 MG Tablet 1000 MG PO ×3 (05:02→22:11)
[2024-01-12] MEDS: Metolazone 2.5 MG Tablet PO ×2 (05:02→13:13)
[2024-01-12 05:07] VITALS: BP 105/63; PULSE 64
[2024-01-12 05:52] VITALS: BMI 26.6
[2024-01-12] MEDS: 0.9% Saline Lock 10 ML Syringe IV ×3 (06:39→22:19)
[2024-01-12] MEDS: Furosemide 100 MG/10 ML Vial 80 MG IV ×2 (06:39→15:13)
[2024-01-12 08:00] LABS: Anion Gap 4 (5-15); BUN 67 mg/dL (7-18); Calcium,Total 9.3 mg/dL (8.5-10.1); Chloride 101 mmol/L (98-107); Creatinine, Serum 1.24 mg/dL (0.70-1.30); EST Glomerular Filtration Rate 60 mL/min (>60); Est Glom Filt Rate - Afr Amer 72 mL/min (>60); Estimated Creatinine Clearance 47.51 ml/min; Glucose 112 mg/dL (74-106); Potassium 4.5 mmol/L (3.5-5.1); Sodium Level 138 mmol/L (136-145)
[2024-01-12] MEDS: Potassium Chloride Oral Tablet 20 MEQ 40 MEQ PO ×2 (08:19→16:51)
[2024-01-12] MEDS: Umeclidinium Brm/Vilanterol 62.5-25 mcg Inh 1 PUFF INHALATION (08:19)
[2024-01-12] MEDS: Juven (unflavored) Packet 1 PACKET PO ×2 (08:19→16:51)
[2024-01-12] MEDS: Fluticasone 0.05% 1 SPRAY NASAL.SRY NASAL (08:20)
[2024-01-12] MEDS: Lidocaine 5% Patch 1 PATCH TOPICAL (08:20)
[2024-01-12] MEDS: Carvedilol 6.25 MG Tablet PO ×2 (08:20→22:09)
[2024-01-12] MEDS: Menthol/Lanolin/Calamine/Znox 113 GM Tube 1 APPLIC TOPICAL ×2 (08:20→22:14)
[2024-01-12] MEDS: APIXABAN 5 MG TABLET PO ×2 (08:20→22:10)
[2024-01-12] MEDS: Finasteride 5 MG Tablet PO (08:21)
[2024-01-12] MEDS: Pantoprazole Sodium 20 MG Tablet PO (08:21)
[2024-01-12] MEDS: Senna/Docusate Sodium 1 Tablet 2 TABLET PO ×2 (08:21→22:11)
[2024-01-12] MEDS: Polyethylene Glycol 3350 17 GM PACKET PO (08:21)
[2024-01-12 13:05] VITALS: BP 100/64; PULSE 75; RESP 18; TEMP 36.5; O2SAT 99
[2024-01-12 15:10] VITALS: BP 98/52
[2024-01-12] MEDS: Tamsulosin HCl 0.4 MG Capsule PO (16:51)
[2024-01-12] MEDS: ROSUVASTATIN CALCIUM 40 MG TABLET PO (22:10)
[2024-01-12] MEDS: Doxepin Hydrochloride 10 MG Capsule PO (22:11)
[2024-01-12] MEDS: Pramipexole Di-HCl 0.5 MG Tablet PO (22:11)
[2024-01-13 01:24] VITALS: BP 123/72; PULSE 81; O2SAT 98
[2024-01-13 05:00] LABS: Anion Gap 7 (5-15); BUN 86 mg/dL (7-18); BUN/Creat Ratio 66.2 RATIO (10-20); Chloride 98 mmol/L (98-107); EST Glomerular Filtration Rate 56 mL/min (>60); Est Glom Filt Rate - Afr Amer 68 mL/min (>60); Estimated Creatinine Clearance 45.32 ml/min; Glucose 132 mg/dL (74-106); Sodium Level 138 mmol/L (136-145)
[2024-01-13 05:10] VITALS: BMI 25.9
[2024-01-13] MEDS: Acetaminophen 500 MG Tablet 1000 MG PO ×3 (06:31→21:43)
[2024-01-13] MEDS: Baclofen 10 MG Tablet PO ×3 (06:31→21:43)
--- NOTE | 2024-01-13 07:55 | NURSING ---
Addendum entered by Arin Biggs 01/13/24 10:50: correction: sp02-99% on 5L nasal cannula. Addendum entered by Arin Biggs 01/13/24 10:45: Called and notified Dr. Stewart of lab results this morning, as well as current weight/trend. Received and read-back order to stop IV Lasix and Metolazone. No other orders. Pt vitals this AM: bp-101/72, p-69, r-18, sp02-99% on room air. No complaints at this time. Continues with fluid restriction. Original Note: IV Lasix and po Metolazone held at this time due to decreased renal function per labs this am. Has also experienced significant weight loss in a short period of time. Reported to oncoming nurses. Staff to continue to monitor and update Dr. Stewart.
[2024-01-13 09:56] VITALS: BP 101/72; PULSE 74; RESP 18; O2SAT 100
[2024-01-13] MEDS: Fluticasone 0.05% 1 SPRAY NASAL.SRY NASAL (09:59)
[2024-01-13] MEDS: Polyethylene Glycol 3350 17 GM PACKET PO (10:00)
[2024-01-13] MEDS: Lidocaine 5% Patch 1 PATCH TOPICAL (10:00)
[2024-01-13] MEDS: Juven (unflavored) Packet 1 PACKET PO ×2 (10:00→17:42)
[2024-01-13] MEDS: Pantoprazole Sodium 20 MG Tablet PO (10:01)
[2024-01-13] MEDS: Senna/Docusate Sodium 1 Tablet 2 TABLET PO ×2 (10:01→21:43)
[2024-01-13] MEDS: Carvedilol 6.25 MG Tablet PO ×2 (10:01→21:42)
[2024-01-13] MEDS: Potassium Chloride Oral Tablet 20 MEQ 40 MEQ PO ×2 (10:02→17:41)
[2024-01-13] MEDS: Umeclidinium Brm/Vilanterol 62.5-25 mcg Inh 1 PUFF INHALATION (10:02)
[2024-01-13] MEDS: Finasteride 5 MG Tablet PO (10:03)
[2024-01-13] MEDS: APIXABAN 5 MG TABLET PO ×2 (10:03→21:42)
[2024-01-13] MEDS: oxyCODONE 5 MG Tablet PO ×2 (10:13→21:42)
[2024-01-13] MEDS: 0.9% Saline Lock 10 ML Syringe IV (10:14)
[2024-01-13] MEDS: Menthol/Lanolin/Calamine/Znox 113 GM Tube 1 APPLIC TOPICAL ×2 (10:17→21:43)
[2024-01-13 16:00] VITALS: TEMP 36.3
[2024-01-13] MEDS: Tamsulosin HCl 0.4 MG Capsule PO (17:42)
[2024-01-13 20:30] VITALS: PULSE 72; O2SAT 95
--- NOTE | 2024-01-13 21:16 | NURSING ---
Spoke w/ Dr. Stewart via phone. New order received and read back to [facility]
[2024-01-13] MEDS: ROSUVASTATIN CALCIUM 40 MG TABLET PO (21:42)
[2024-01-13] MEDS: Pramipexole Di-HCl 0.5 MG Tablet PO (21:43)
[2024-01-13] MEDS: Doxepin Hydrochloride 10 MG Capsule PO (21:43)
[2024-01-14 05:21] VITALS: BMI 26.1
[2024-01-14] MEDS: Acetaminophen 500 MG Tablet 1000 MG PO ×3 (05:28→22:14)
[2024-01-14] MEDS: Baclofen 10 MG Tablet PO ×3 (05:29→22:12)
[2024-01-14 06:22] LABS: Anion Gap 7 (5-15); BUN 84 mg/dL (7-18); BUN/Creat Ratio 71.8 RATIO (10-20); Calcium,Total 9.7 mg/dL (8.5-10.1); Chloride 103 mmol/L (98-107); Creatinine, Serum 1.17 mg/dL (0.70-1.30); EST Glomerular Filtration Rate 64 mL/min (>60); Est Glom Filt Rate - Afr Amer 77 mL/min (>60); Estimated Creatinine Clearance 50.36 ml/min; Glucose 116 mg/dL (74-106); Potassium 4.6 mmol/L (3.5-5.1); Sodium Level 136 mmol/L (136-145)
[2024-01-14] MEDS: Juven (unflavored) Packet 1 PACKET PO ×2 (08:06→16:53)
[2024-01-14] MEDS: Furosemide 40 MG Tablet PO ×2 (08:06→14:04)
[2024-01-14] MEDS: Umeclidinium Brm/Vilanterol 62.5-25 mcg Inh 1 PUFF INHALATION (09:53)
[2024-01-14] MEDS: Menthol/Lanolin/Calamine/Znox 113 GM Tube 1 APPLIC TOPICAL ×2 (09:53→22:09)
[2024-01-14] MEDS: Carvedilol 6.25 MG Tablet PO (09:54)
[2024-01-14] MEDS: APIXABAN 5 MG TABLET PO ×2 (09:54→22:12)
[2024-01-14] MEDS: SACUBITRIL/VALSARTAN 24/26 MG TABLET 1 EACH PO (09:54)
[2024-01-14] MEDS: Finasteride 5 MG Tablet PO (09:55)
[2024-01-14] MEDS: Fluticasone 0.05% 1 SPRAY NASAL.SRY NASAL (09:55)
[2024-01-14] MEDS: Lidocaine 5% Patch 1 PATCH TOPICAL (09:55)
[2024-01-14] MEDS: Polyethylene Glycol 3350 17 GM PACKET PO (09:55)
[2024-01-14] MEDS: Pantoprazole Sodium 20 MG Tablet PO (09:56)
[2024-01-14] MEDS: Senna/Docusate Sodium 1 Tablet 2 TABLET PO ×2 (09:56→22:13)
[2024-01-14 13:21] VITALS: O2SAT 94
--- NOTE | 2024-01-14 14:36 | WOUNDNOTE ---
Pt states dressing was changed by nursing today. will assess left foot tomorrow.
--- NOTE | 2024-01-14 15:04 | NURSING ---
FRATERNITY HOUSE COOK reported low BP on pt. Manually rechecked by this nurse 75/35 HR 84 spo2 95. No c/o dizzy, SOB. Dr Stewart notified and orederd hold entresto and lasix. no further dose of lasix today. increased fluid restriction from 1500 to 1800.
[2024-01-14 15:29] VITALS: PULSE 77; RESP 18; TEMP 36.1; O2SAT 95
[2024-01-14] MEDS: Tamsulosin HCl 0.4 MG Capsule PO (16:53)
[2024-01-14 18:50] VITALS: BP 85/45; PULSE 87; O2SAT 90
--- NOTE | 2024-01-14 20:30 | NURSING ---
Patient reported to have low BP all day, BP 87/51 at time, updated, patient due for Coreg 6.25mg, OK'd to hold med.
[2024-01-14] MEDS: ROSUVASTATIN CALCIUM 40 MG TABLET PO (22:12)
[2024-01-14] MEDS: Pramipexole Di-HCl 0.5 MG Tablet PO (22:13)
[2024-01-14] MEDS: Doxepin Hydrochloride 10 MG Capsule PO (22:14)
[2024-01-14] MEDS: 0.9% Saline Lock 10 ML Syringe IV (22:17)
[2024-01-15] VITALS (8 sets, daily range): BP systolic 82–104; BP diastolic 46–70; PULSE 65–89; RESP 16; TEMP 36.2; O2SAT 92–96; BMI 26.0
[2024-01-15] MEDS: Acetaminophen 500 MG Tablet 1000 MG PO ×3 (05:20→22:01)
[2024-01-15] MEDS: Baclofen 10 MG Tablet PO ×3 (05:20→21:59)
[2024-01-15 06:55] LABS: Anion Gap 7 (5-15); BUN 96 mg/dL (7-18); Calcium,Total 9.3 mg/dL (8.5-10.1); Chloride 99 mmol/L (98-107); Creatinine, Serum 1.28 mg/dL (0.70-1.30); EST Glomerular Filtration Rate 57 mL/min (>60); Est Glom Filt Rate - Afr Amer 70 mL/min (>60); Estimated Creatinine Clearance 46.03 ml/min; Glucose 118 mg/dL (74-106); Potassium 3.9 mmol/L (3.5-5.1); Sodium Level 136 mmol/L (136-145)
[2024-01-15] MEDS: Umeclidinium Brm/Vilanterol 62.5-25 mcg Inh 1 PUFF INHALATION (08:19)
[2024-01-15] MEDS: Fluticasone 0.05% 1 SPRAY NASAL.SRY NASAL (08:19)
[2024-01-15] MEDS: Juven (unflavored) Packet 1 PACKET PO ×2 (08:21→17:37)
[2024-01-15] MEDS: Menthol/Lanolin/Calamine/Znox 113 GM Tube 1 APPLIC TOPICAL ×2 (08:21→19:57)
[2024-01-15] MEDS: APIXABAN 5 MG TABLET PO ×2 (08:22→22:00)
[2024-01-15] MEDS: Lidocaine 5% Patch 1 PATCH TOPICAL (08:22)
[2024-01-15] MEDS: Finasteride 5 MG Tablet PO (08:23)
[2024-01-15] MEDS: Senna/Docusate Sodium 1 Tablet 2 TABLET PO ×2 (08:23→22:02)
[2024-01-15] MEDS: Pantoprazole Sodium 20 MG Tablet PO (08:23)
[2024-01-15] MEDS: Polyethylene Glycol 3350 17 GM PACKET PO (08:24)
[2024-01-15] MEDS: SACUBITRIL/VALSARTAN 24/26 MG TABLET 1 EACH PO (08:24)
[2024-01-15] MEDS: 0.9% Saline Lock 10 ML Syringe IV ×2 (08:35→19:58)
[2024-01-15] MEDS: Carvedilol 3.125 MG TABLET PO (10:27)
--- NOTE | 2024-01-15 13:10 | NURSING ---
PAWANRN/WOUND NURSE CHANGED PT DRESSING TO LEFT FOOT. SEE NEW ORDERS.
--- NOTE | 2024-01-15 14:01 | WOUNDNOTE ---
wound photo: left foot
--- NOTE | 2024-01-15 14:02 | WOUNDNOTE ---
wound photo: left heel
[2024-01-15] MEDS: Furosemide 40 MG Tablet PO (15:01)
--- NOTE | 2024-01-15 15:04 | NURSING ---
PT BP 84/56 MANUAL. NOTIFIED OF PT BP AND FLUID RESTRICTION AND HE IS TO RECEIVE 40MG LASIX. PER TO GIVE MED.RN AWARE
[2024-01-15] MEDS: Tamsulosin HCl 0.4 MG Capsule PO (17:38)
--- NOTE | 2024-01-15 21:45 | NURSING ---
Patient blood pressure 84/52 manual, updated and OK'd to hold coreg and entresto med dose.
[2024-01-15] MEDS: ROSUVASTATIN CALCIUM 40 MG TABLET PO (22:00)
[2024-01-15] MEDS: Doxepin Hydrochloride 10 MG Capsule PO (22:01)
[2024-01-15] MEDS: Pramipexole Di-HCl 0.5 MG Tablet PO (22:03)
[2024-01-16] MEDS: oxyCODONE 5 MG Tablet PO ×3 (00:51→22:17)
[2024-01-16 02:10] VITALS: PULSE 72; O2SAT 98
[2024-01-16] MEDS: Baclofen 10 MG Tablet PO ×3 (05:20→22:19)
[2024-01-16] MEDS: Acetaminophen 500 MG Tablet 1000 MG PO ×3 (05:20→22:18)
[2024-01-16 05:23] VITALS: BMI 26.4
[2024-01-16 06:33] LABS: Anion Gap 9 (5-15); BUN 106 mg/dL (7-18); BUN/Creat Ratio 80.9 RATIO (10-20); Calcium,Total 9.2 mg/dL (8.5-10.1); Chloride 99 mmol/L (98-107); Creatinine, Serum 1.31 mg/dL (0.70-1.30); EST Glomerular Filtration Rate 56 mL/min (>60); Est Glom Filt Rate - Afr Amer 68 mL/min (>60); Estimated Creatinine Clearance 44.97 ml/min; Glucose 95 mg/dL (74-106); Potassium 4.1 mmol/L (3.5-5.1); Sodium Level 133 mmol/L (136-145)
--- NOTE | 2024-01-16 06:40 | NURSING ---
Lab called with lab value BUN 106 CH, notified of lab value via communication board, BUN 96 on 01/15/24.
[2024-01-16 06:46] VITALS: O2SAT 96
[2024-01-16] MEDS: Menthol/Lanolin/Calamine/Znox 113 GM Tube 1 APPLIC TOPICAL ×2 (07:49→22:19)
[2024-01-16] MEDS: Juven (unflavored) Packet 1 PACKET PO ×2 (07:51→17:33)
[2024-01-16] MEDS: Fluticasone 0.05% 1 SPRAY NASAL.SRY NASAL (07:52)
[2024-01-16] MEDS: Umeclidinium Brm/Vilanterol 62.5-25 mcg Inh 1 PUFF INHALATION (07:52)
[2024-01-16] MEDS: Lidocaine 5% Patch 1 PATCH TOPICAL (07:59)
[2024-01-16] MEDS: APIXABAN 5 MG TABLET PO ×2 (08:01→22:19)
[2024-01-16] MEDS: Finasteride 5 MG Tablet PO (08:02)
[2024-01-16] MEDS: Pantoprazole Sodium 20 MG Tablet PO (08:02)
[2024-01-16] MEDS: Carvedilol 3.125 MG TABLET PO ×2 (08:06→22:19)
[2024-01-16 08:10] VITALS: BP 103/60; PULSE 56
--- NOTE | 2024-01-16 08:59 | NURSING ---
PT LEFT BY WHEEL CHAIR WITH FAMILY AT 0845 FOR APPOINTMENT IN [place]. PT ON 3 L OF OXYGEN.
[2024-01-16 14:27] VITALS: BP 101/61; PULSE 75; RESP 19; TEMP 36.3; O2SAT 98
--- NOTE | 2024-01-16 15:26 | NURSING ---
[facility] CALLED AND UPDATED NEW TIME FOR SURGERY AND ORDERS FOR PT ON 01/22/24 AT [facility]. ALSO REQUESTED UPDATED MED LIST. THIS NURSE FAXED MED LIST OVER. ON 01/22/24 WILL PICK PT UP AT 0630 AM TO TAKE PT TO [facility] FOR A LEFT FEMORAL-TIBIAL BYPASS AND TO ARRIVE AT 0730 AM. SURGERY IS AT 0930 AM. PT IS TO BE NPO AT MIDNIGHT ON 01/22/24,CLEAR LIQUIDS UP TO 2 HOURS BEFORE SURGERY. STOP ELIQUIS 2 DAYS BEFORE SURGERY,[01/20/24]. START ASPIRIN 01/20/24. HOLD THESE MEDS THE MORNING OF SURGERY, FUROSEMIDE,LOSARTAN, ENSURE AND PROTEIN POWDERS. WESLEY ALSO STATED PT WILL BE STAYING THERE A FEW DAYS AFTER SURGERY. RN/ JOAQUIM, ADMISSIONS AND CLOTH FINISHING RANGE OPERATOR NOTIFIED.
[2024-01-16 16:36] VITALS: O2SAT 97
[2024-01-16] MEDS: Tamsulosin HCl 0.4 MG Capsule PO (17:33)
[2024-01-16] MEDS: Doxepin Hydrochloride 10 MG Capsule PO (22:18)
[2024-01-16] MEDS: Pramipexole Di-HCl 0.5 MG Tablet PO (22:19)
[2024-01-16] MEDS: ROSUVASTATIN CALCIUM 40 MG TABLET PO (22:19)
[2024-01-16] MEDS: Senna/Docusate Sodium 1 Tablet 2 TABLET PO (22:19)
[2024-01-17 04:52] VITALS: BMI 26.7
[2024-01-17] MEDS: Acetaminophen 500 MG Tablet 1000 MG PO ×3 (05:18→22:01)
[2024-01-17] MEDS: Baclofen 10 MG Tablet PO ×3 (05:18→22:04)
[2024-01-17 06:03] LABS: Anion Gap 5 (5-15); BUN 90 mg/dL (7-18); BUN/Creat Ratio 78.3 RATIO (10-20); Calcium,Total 9.3 mg/dL (8.5-10.1); Chloride 99 mmol/L (98-107); Creatinine, Serum 1.15 mg/dL (0.70-1.30); EST Glomerular Filtration Rate 65 mL/min (>60); Est Glom Filt Rate - Afr Amer 79 mL/min (>60); Estimated Creatinine Clearance 51.23 ml/min; Glucose 103 mg/dL (74-106); Sodium Level 134 mmol/L (136-145)
[2024-01-17 06:54] VITALS: O2SAT 96
[2024-01-17] MEDS: Juven (unflavored) Packet 1 PACKET PO ×2 (08:34→17:05)
[2024-01-17] MEDS: Furosemide 40 MG Tablet PO (08:41)
[2024-01-17] MEDS: oxyCODONE 5 MG Tablet PO (08:55)
[2024-01-17] MEDS: Polyethylene Glycol 3350 17 GM PACKET PO (09:00)
[2024-01-17] MEDS: Carvedilol 3.125 MG TABLET PO ×2 (09:00→22:02)
[2024-01-17] MEDS: Senna/Docusate Sodium 1 Tablet 2 TABLET PO ×2 (09:00→22:03)
[2024-01-17] MEDS: Pantoprazole Sodium 20 MG Tablet PO (09:00)
[2024-01-17] MEDS: Fluticasone 0.05% 1 SPRAY NASAL.SRY NASAL (09:01)
[2024-01-17] MEDS: APIXABAN 5 MG TABLET PO ×2 (09:01→22:01)
[2024-01-17] MEDS: Umeclidinium Brm/Vilanterol 62.5-25 mcg Inh 1 PUFF INHALATION (09:01)
[2024-01-17] MEDS: Lidocaine 5% Patch 1 PATCH TOPICAL (09:01)
[2024-01-17] MEDS: Finasteride 5 MG Tablet PO (09:02)
[2024-01-17] MEDS: Menthol/Lanolin/Calamine/Znox 113 GM Tube 1 APPLIC TOPICAL ×2 (09:03→21:55)
[2024-01-17 12:11] VITALS: O2SAT 97
[2024-01-17 16:00] VITALS: BP 99/60; PULSE 72; RESP 17; TEMP 36.2; O2SAT 97
[2024-01-17] MEDS: Tamsulosin HCl 0.4 MG Capsule PO (17:06)
[2024-01-17 21:59] VITALS: BP 106/61; PULSE 72; O2SAT 96
[2024-01-17 22:00] VITALS: PULSE 72; O2SAT 96
[2024-01-17] MEDS: Pramipexole Di-HCl 0.5 MG Tablet PO (22:02)
[2024-01-17] MEDS: ROSUVASTATIN CALCIUM 40 MG TABLET PO (22:03)
[2024-01-17] MEDS: Doxepin Hydrochloride 10 MG Capsule PO (22:03)
[2024-01-18 05:11] VITALS: BMI 26.8
[2024-01-18] MEDS: Baclofen 10 MG Tablet PO ×3 (05:18→20:44)
[2024-01-18] MEDS: Acetaminophen 500 MG Tablet 1000 MG PO ×3 (05:19→21:38)
[2024-01-18 07:00] VITALS: O2SAT 93
[2024-01-18 07:23] LABS: Absolute Lymphocyte Count 2.77 X10^3/uL (0.83-4.51); Absolute Neutrophil Count 6.1 X10^3/uL (2.0-7.7); Basophil# 0.06 X10^3/uL; Basophil% 0.6 % (0-1); Eosinophil# 0.43 X10^3/uL; Eosinophils% 4.1 % (0-5); Hematocrit 42.3 % (40-54); Hemoglobin 13.6 g/dL (13.0-16.5); Lymphocyte # 2.77 X10^3/ul (0.83-4.51); Lymphocyte % 26.2 % (19-41); Mean Corp Hgb Conc 32.2 g/dL (32-36); Mean Corpuscular Hgb 32.4 pg (27.0-32.0); Mean Corpuscular Volume 100.7 fL (80-94); Mean Platelet Vol. 10.7 fl (6.2-12.0); Monocyte% 10.4 % (0-10); NRBC Flagged by Analyzer 0 % (0-5); Neutrophil # 6.14 X10^3/uL (2.7-7.7); Platelet Count 153 K/mm3 (150-450); RBC Distribution Width CV 15.6 % (11.6-14.6); RBC Distribution Width SD 57.8 fl (35.1-43.9); White Blood Count 10.6 K/mm3 (4.4-11.0)
[2024-01-18 07:45] LABS: Anion Gap 2 (5-15); BUN 76 mg/dL (7-18); BUN/Creat Ratio 59.8 RATIO (10-20); Calcium,Total 9.4 mg/dL (8.5-10.1); Chloride 102 mmol/L (98-107); Creatinine, Serum 1.27 mg/dL (0.70-1.30); EST Glomerular Filtration Rate 58 mL/min (>60); Est Glom Filt Rate - Afr Amer 70 mL/min (>60); Estimated Creatinine Clearance 46.39 ml/min; Glucose 108 mg/dL (74-106); Potassium 4.1 mmol/L (3.5-5.1); Sodium Level 137 mmol/L (136-145)
[2024-01-18] MEDS: Juven (unflavored) Packet 1 PACKET PO ×2 (07:55→17:01)
[2024-01-18 10:00] VITALS: PULSE 62; RESP 20; O2SAT 95
[2024-01-18] MEDS: Umeclidinium Brm/Vilanterol 62.5-25 mcg Inh 1 PUFF INHALATION (10:08)
[2024-01-18] MEDS: Finasteride 5 MG Tablet PO (10:09)
[2024-01-18] MEDS: Pantoprazole Sodium 20 MG Tablet PO (10:09)
[2024-01-18] MEDS: Lidocaine 5% Patch 1 PATCH TOPICAL (10:09)
[2024-01-18] MEDS: APIXABAN 5 MG TABLET PO ×2 (10:09→20:43)
[2024-01-18] MEDS: Senna/Docusate Sodium 1 Tablet 2 TABLET PO ×2 (10:09→20:44)
[2024-01-18] MEDS: Polyethylene Glycol 3350 17 GM PACKET PO (10:09)
[2024-01-18] MEDS: Fluticasone 0.05% 1 SPRAY NASAL.SRY NASAL (10:10)
[2024-01-18] MEDS: Menthol/Lanolin/Calamine/Znox 113 GM Tube 1 APPLIC TOPICAL ×2 (10:11→20:46)
[2024-01-18] MEDS: Carvedilol 3.125 MG TABLET PO ×2 (10:12→20:44)
[2024-01-18] MEDS: Furosemide 40 MG/4 ML Vial IV ×2 (10:56→15:31)
[2024-01-18 15:25] VITALS: O2SAT 95
[2024-01-18 16:00] VITALS: BP 97/61; PULSE 71; RESP 15; TEMP 36.5; O2SAT 98
[2024-01-18] MEDS: Tamsulosin HCl 0.4 MG Capsule PO (17:02)
[2024-01-18] MEDS: oxyCODONE 5 MG Tablet PO ×2 (17:07→21:39)
--- NOTE | 2024-01-18 19:30 | DS.PCM_ITS ---
Providers Date of Admission: 12/13/23 Primary Care Physician: Dr. Itz Sevilla MD Consultations 12/13/23 16:28 Consult: Onc/Wound/blister packaging machine operator Routine Comment: Reason for Consult:: 2 WOUND VACS, LT TOE AMP Reason For Visit: TAVR FEMORAL BYPASS Diagnosis Discharge Diagnosis (1) Debility: Status: Acute Code(s): R53.81 - Other malaise (2) Peripheral vascular disease: Status: Acute Code(s): I73.9 - Peripheral vascular disease, unspecified (3) Dry gangrene: Status: Acute Code(s): I96 - Gangrene, not elsewhere classified (4) S/P femoral-femoral bypass surgery: Status: Acute Code(s): Z95.828 - Presence of other vascular implants and grafts (5) Status post amputation of left great toe: Status: Acute Code(s): Z89.412 - Acquired absence of left great toe (6) COPD (chronic obstructive pulmonary disease): Status: Chronic Code(s): J44.9 - Chronic obstructive pulmonary disease, unspecified (7) History of transcatheter aortic valve replacement (TAVR): Status: Acute Code(s): Z95.2 - Presence of prosthetic heart valve (8) Essential (primary) hypertension: Status: Acute Code(s): I10 - Essential (primary) hypertension (9) Deep vein thrombosis: Status: Acute Code(s): I82.409 - Acute embolism and thrombosis of unspecified deep veins of unspecified lower extremity (10) Iron deficiency anemia: Status: Acute Code(s): D50.9 - Iron deficiency anemia, unspecified (11) Gastroesophageal reflux disease: Status: Acute Code(s): K21.9 - Gastro-esophageal reflux disease without esophagitis (12) Hyperlipidemia: Status: Acute Code(s): E78.5 - Hyperlipidemia, unspecified Plan 78 year old male with below past medical history hospitalized for peripheral vascular disease, underwent left fem fem bypass surgery, left great toe amputation 12/07/[address] Brower, admitted to TCU with debility, here for rehabilitation, strengthening, prior to discharge home with . * Debility - PT/OT. * Pain - Tylenol 1000mg q8 prn pain (1-3), Oxycodone 5-10mg q4 prn pain (4-10), Lidoderm patch 1 patch topical daily. * Bowel - Miralax 17gm daily, senna/colace 2 tablets bid, Magnesium citrate 300ml daily prn. * Adult immunization - Administer pneumonia vaccine, covid vaccine, flu vaccine as appropriate. * DVT prophylaxis - on Eliquis. * Pneumonia - Levaquin 750mg daily thru 01/10/2024. * Hypoxia - Order CTA chest to rule out DVT, add Medrol dose pack, possible pulmonary fibrosis. * COPD - Incruse 1 puff daily, Albuterol 2 puffs q4h prn. * DVT/PE/PVD - Eliquis 5mg bid. * Muscle spasm - Baclofen 10mg tid. * Coronary artery disease - Coreg 6.25mg bid, Losartan 25mg daily, Eliquis 5mg bid, NTG 0.4mg sl q5m prn. * Nutrition - Ensure Plus 120mL po tidcm, Jacky 1 packet po bidcm. * BPH - Finasteride 5mg daily, Tamsulosin 0.4mg daily. * Allergic rhinitis - Fluticasone 0.5% 1 spray nasal daily. * Edema/fluid overload - Furosemide 40mg iv bid, MAEVE wraps bilateral extremities, daily weights. * GERD - Pantoprazole 20mg daily. * Hyperlipidemia - Rosuvastatin 40mg qhs. * Wound - Collagenase topical, wound nurse consult. * Insomnia - Doxepion 10mg qhs. * Anxiety/restlessness/sleep - Lorazepam 0.5mg q4h prn. * Skin irritation - Calmoseptine topical bid. * Restless leg syndrome - Mirapex 0.5mg qhs. Medications at Discharge Home Medications rosuvastatin 40 mg tablet 40 mg PO QHS Check with primary doctor 04/29/21 apixaban 5 mg tablet (Eliquis) 5 mg PO BID blood thinner 30 days #60 tabs 05/17/21 oxycodone 5 mg tablet 5 mg PO Q4H PRN PRN Pain Score 6-10 Or Pre Pt/Ot 7 days #42 tabs 09/28/23 tamsulosin 0.4 mg capsule 0.4 mg PO DAILY@1730 Urine retention 30 days #30 caps 09/28/23 albuterol sulfate 90 mcg/actuation aerosol inhaler 2 puff inhalation Q4H PRN PRN SOB 12/13/23 baclofen 10 mg tablet 10 mg PO BID Muscle spasms 12/13/23 finasteride 5 mg tablet 5 mg PO DAILY Prostate 12/13/23 fluticasone propionate 50 mcg/actuation nasal spray,suspension 1 spray intranasal DAILY SOB 12/13/23 furosemide 20 mg tablet 40 mg PO DAILY Fluid retention 12/13/23 losartan 25 mg tablet 25 mg PO DAILY BP 12/13/23 acetaminophen 500 mg tablet 1,000 mg (2 x 500 mg) PO Q8 #0 tabs 01/18/24 arginine 7 gram-glutam 7 gram-CaHMB 1.5 dolb-agrhr-kg-min oral pwd pkt (Jacky (with collagen)) 1 packet PO BIDCM #0 ea 01/18/24 carvedilol 3.125 mg tablet 3.125 mg PO BID #0 tabs 01/18/24 doxepin 10 mg capsule 10 mg PO QHS #0 caps 01/18/24 lidocaine 5 % topical patch 1 patch topical DAILY #0 ea 01/18/24 menthol 0.44 %-zinc oxide 20.6 % topical ointment (Calmoseptine) 1 applic topical BID #0 grams 01/18/24 nitroglycerin 0.4 mg sublingual tablet 0.4 mg sublingual Q5M PRN Cardiac/Chest Pain #0 tabs 01/18/24 pantoprazole 20 mg tablet,delayed release 20 mg PO DAILY #0 tabs 01/18/24 pramipexole 0.5 mg tablet 0.5 mg PO QHS #0 tabs 01/18/24 sennosides 8.6 mg-docusate sodium 50 mg tablet (Stimulant Laxative Plus) 2 tab PO BID #0 tabs 01/18/24 umeclidinium 62.5 mcg-vilanterol 25 mcg/actuation powdr for inhalation (Anoro Ellipta) 1 inh inhalation DAILY #0 ea 01/18/24 Hospital Course Operations None Procedures None Summary of Care Provided Minutes Spent on Discharge: 35 Hospital Course: 78 year old male with below past medical history hospitalized for peripheral vascular disease, underwent left fem fem bypass surgery, left great toe amputation 12/07/[address] Brower, admitted to TCU with debility, here for rehabilitation, strengthening, prior to discharge home with . Discharge to [facility] 01/22/2024 for left fem tib bypass surgery with Dr. Brower. Physical Exam Const alert General Appearance: cooperative HEENT normocephalic Eyes PERRL and EOMs intact bilaterally Neck supple, no JVD and no carotid bruits Resp normal air movement Auscultation: crackles bilateral and diffuse (Dry sounding. ) Cardio regular rate and regular rhythm GI normal to inspection, nondistended, normoactive bowel sounds, non-tender and non-distended GI Narrative: Bilateral groin Prevena wound VAC. Extremity normal capillary refill Extremity Narrative: Left lower extremity dressed. General Extremity: Negative for edema Skin no rashes or lesions noted General Skin Exam: no breakdown Psych affect normal Appearance: appropriate Weight / BMI Weight Weight: 82.1 kg Body Mass Index (BMI) 26.8 ABG / Lab / Microbiology Data 01/18/24 07:11 01/18/24 07:11 Laboratory: Laboratory Results - last 24 hr 01/18/24 07:11: WBC 10.6, RBC 4.20 L, Hgb 13.6, Hct 42.3, MCV 100.7 H, MCH 32.4 H, MCHC 32.2, RDW Std Deviation 57.8 H, RDW Coeff of Lexi 15.6 H, Plt Count 153, MPV 10.7, Immature Gran % (Auto) 0.700, Neut % (Auto) 58.0, Lymph % (Auto) 26.2, [place] % (Auto) 10.4 H, Eos % (Auto) 4.1, Baso % (Auto) 0.6, Absolute Neuts (auto) 6.1, Absolute Lymphs (auto) 2.77, Nucleated RBC % 0, Sodium 137, Potassium 4.1, Chloride 102, Carbon Dioxide 33.0 H, Anion Gap 2 L, BUN 76 H, Creatinine 1.27, Estim Creat Clear Calc 46.39, Est GFR (MDRD) Af Amer 70, Est GFR (MDRD) Non-Af 58 L, BUN/Creatinine Ratio 59.8 H, Glucose 108 H, Calcium 9.4 Microbiology: Microbiology 01/01/24 21:50 Urine, Catheterized Urine Culture - Final Culture exhibits no growth. 12/21/23 10:30 Urine, Clean Catch Urine Culture - Final Culture exhibits no growth. 12/21/23 05:38 Nasal Secretion SARS-CoV-2 Antigen (Rapid) - Final D/C Instructions Discharge Diet: - (NPO.) Discharge Activity: Return to Normal Activity Weight Bearing Status: Weight bearing as tolerated Call your doctor if you observe: Fever of 101 or Higher, Inability to urinate, Inability to have a bowel movement, Shortness of breath, Dizziness, Fainting spells, Swelling in the ankles, Chest pain and Uncontrolled pain Additional Instructions: Discharge to [facility] 01/22/2024 for left fem tib bypass surgery with Dr. Alcazar Please Follow Up With: Dr. Yen Meaningful Use Info Meaningful Use Meaningful Use Diagnoses (Choose all that apply): None applicable Ischemic Stroke Statin Dosing Therapy Reference: STATIN DOSE THERAPY REFERENCE: * Patients > 75 years receive moderate or high dose statin therapy. * Patients 75 years or YOUNGER should receive HIGH intensity statin dose unless contraindicated. You will be required to document reason for non-treatment if statin daily dose does not meet guidelines. HIGH DOSE STATIN THERAPY DAILY Atorvastatin > than or = to 40 mg Rosuvastatin > than or = to 20 mg Amlodipine + Atorvastatin > than or = to 2.5/40 mg Ezetimibe + Simvastatin 10/80 mg Simvastatin 80mg Discharge Plan Admission Admit Date/Time: 12/13/23 16:07 Primary Reason for Your Visit: Debility. Attending Provider: Oh Stewart Chi Primary Care Provider: Itz Sevilla Instructions Additional Instructions / Restrictions: Discharge to [facility] 01/22/2024 for left fem tib bypass surgery with Dr. Alcazar Discharge Orders/Prescriptions Prescriptions: New sennosides-docusate sodium [Stimulant Laxative Plus] 8.6-50 mg Tablet 2 tab PO BID Qty: 0 0RF doxepin 10 mg Capsule 10 mg PO QHS Qty: 0 0RF acetaminophen 500 mg Tablet 1,000 mg PO Q8 Qty: 0 0RF carvedilol 3.125 mg Tablet 3.125 mg PO BID Qty: 0 0RF pantoprazole 20 mg Tablet,Delayed Release (Dr/Ec) 20 mg PO DAILY Qty: 0 0RF pramipexole 0.5 mg Tablet 0.5 mg PO QHS Qty: 0 0RF lidocaine 5 % Adhesive Patch,Medicated 1 patch topical DAILY Qty: 0 0RF Protocol: *Topical Application Instructions APPLICATION INSTRUCTIONS: Left posterior thigh. nitroglycerin 0.4 mg Tablet, Sublingual 0.4 mg sublingual Q5M PRN (Reason: Cardiac/Chest Pain) Qty: 0 0RF menthol-zinc oxide [Calmoseptine] 0.44-20.6 % Ointment 1 applic topical BID Qty: 0 0RF Protocol: *Topical Application Instructions APPLICATION INSTRUCTIONS: Apply to bilateral buttocks Anoro Ellipta 62.5-25 mcg/actuation Blister With Device 1 inh inhalation DAILY Qty: 0 0RF Jacky (with collagen) 7-7-1.5 gram Powder In Packet 1 packet PO BIDCM Qty: 0 0RF Continued rosuvastatin 40 mg Tablet 40 mg PO QHS Eliquis 5 mg tablet 5 mg PO BID 30 Days Qty: 60 0RF tamsulosin 0.4 mg Capsule 0.4 mg PO DAILY@1730 30 Days Qty: 30 0RF oxycodone 5 mg Tablet 5 mg PO Q4H PRN PRN (Reason: Pain Score 6-10 Or Pre Pt/Ot) 7 Days Qty: 42 0RF albuterol sulfate 90 mcg/actuation HFA aerosol inhaler 2 puff inhalation Q4H PRN PRN (Reason: SOB) finasteride 5 mg tablet 5 mg PO DAILY fluticasone propionate 50 mcg/actuation spray,suspension 1 spray INTRANASAL DAILY furosemide 20 mg tablet 40 mg PO DAILY losartan 25 mg tablet 25 mg PO DAILY baclofen 10 mg Tablet 10 mg PO BID Discontinued omeprazole 20 mg Capsule,Delayed Release(Dr/Ec) 20 mg PO DAILY carvedilol 6.25 mg Tablet 6.25 mg PO BID 30 Days Qty: 60 0RF tamsulosin 0.4 mg Capsule 0.8 mg PO DAILY@1730 30 Days Qty: 60 0RF nitroglycerin 0.4 mg tablet, sublingual 0.4 mg sublingual UD Stiolto Respimat 2.5-2.5 mcg/actuation mist 2 puff inhalation DAILY Referrals / Follow Up: Bucky Mensah [Other] - 04/09/24 11:15 am (Arrive 15 mins early) Fredi Jarrett [Other] - 05/06/24 (Arrive 15 mins early) Itz Sevilla MD [Primary Care Provider] - KRAYNICK,FREDI, CORRECTIONAL OFFICER CAPTAIN-C [Non-Staff] - Disposition Disposition (needs filled in before D/C Order can be placed): [facility]
[2024-01-18] MEDS: Pramipexole Di-HCl 0.5 MG Tablet PO (20:43)
[2024-01-18] MEDS: Doxepin Hydrochloride 10 MG Capsule PO (20:43)
[2024-01-18] MEDS: ROSUVASTATIN CALCIUM 40 MG TABLET PO (20:44)
[2024-01-19 05:54] VITALS: BMI 26.6
[2024-01-19] MEDS: Baclofen 10 MG Tablet PO ×3 (05:57→21:40)
[2024-01-19] MEDS: Furosemide 40 MG/4 ML Vial IV ×2 (05:57→14:20)
[2024-01-19] MEDS: Acetaminophen 500 MG Tablet 1000 MG PO ×3 (05:57→21:41)
[2024-01-19] MEDS: 0.9% Saline Lock 10 ML Syringe IV (05:57)
[2024-01-19 07:13] VITALS: O2SAT 96
[2024-01-19] MEDS: Fluticasone 0.05% 1 SPRAY NASAL.SRY NASAL (09:01)
[2024-01-19] MEDS: Umeclidinium Brm/Vilanterol 62.5-25 mcg Inh 1 PUFF INHALATION (09:01)
[2024-01-19] MEDS: Juven (unflavored) Packet 1 PACKET PO ×2 (09:03→17:21)
[2024-01-19] MEDS: Polyethylene Glycol 3350 17 GM PACKET PO (09:03)
[2024-01-19 09:07] LABS: Anion Gap 2 (5-15); BUN 69 mg/dL (7-18); BUN/Creat Ratio 55.6 RATIO (10-20); Calcium,Total 9.2 mg/dL (8.5-10.1); Chloride 102 mmol/L (98-107); Creatinine, Serum 1.24 mg/dL (0.70-1.30); EST Glomerular Filtration Rate 60 mL/min (>60); Est Glom Filt Rate - Afr Amer 72 mL/min (>60); Estimated Creatinine Clearance 47.51 ml/min; Glucose 114 mg/dL (74-106); Sodium Level 137 mmol/L (136-145)
[2024-01-19 09:08] LABS: BNP,B-Type NATRIURETIC PEPTIDE 42.3 pg/mL (0-100)
[2024-01-19] MEDS: oxyCODONE 5 MG Tablet PO (09:09)
[2024-01-19] MEDS: Lidocaine 5% Patch 1 PATCH TOPICAL (09:09)
[2024-01-19] MEDS: Senna/Docusate Sodium 1 Tablet 2 TABLET PO ×2 (09:10→21:40)
[2024-01-19] MEDS: Carvedilol 3.125 MG TABLET PO ×2 (09:10→21:39)
[2024-01-19] MEDS: Pantoprazole Sodium 20 MG Tablet PO (09:10)
[2024-01-19] MEDS: APIXABAN 5 MG TABLET PO (09:10)
[2024-01-19] MEDS: Finasteride 5 MG Tablet PO (09:10)
[2024-01-19] MEDS: Menthol/Lanolin/Calamine/Znox 113 GM Tube 1 APPLIC TOPICAL ×2 (09:11→21:39)
[2024-01-19 09:14] VITALS: BP 108/60; PULSE 59
[2024-01-19 16:00] VITALS: BP 105/63; PULSE 67; RESP 17; TEMP 36.2; O2SAT 96
[2024-01-19] MEDS: Tamsulosin HCl 0.4 MG Capsule PO (17:21)
[2024-01-19 20:00] VITALS: PULSE 62; RESP 16; O2SAT 95
[2024-01-19] MEDS: ROSUVASTATIN CALCIUM 40 MG TABLET PO (21:40)
[2024-01-19] MEDS: Pramipexole Di-HCl 0.5 MG Tablet PO (21:40)
[2024-01-19] MEDS: Doxepin Hydrochloride 10 MG Capsule PO (21:41)
[2024-01-20] MEDS: oxyCODONE 5 MG Tablet PO ×2 (01:10→21:26)
[2024-01-20 04:43] LABS: Anion Gap 4 (5-15); BUN 71 mg/dL (7-18); BUN/Creat Ratio 62.3 RATIO (10-20); Calcium,Total 9.2 mg/dL (8.5-10.1); Chloride 102 mmol/L (98-107); Creatinine, Serum 1.14 mg/dL (0.70-1.30); EST Glomerular Filtration Rate 66 mL/min (>60); Est Glom Filt Rate - Afr Amer 79 mL/min (>60); Estimated Creatinine Clearance 51.68 ml/min; Glucose 93 mg/dL (74-106); Potassium 3.7 mmol/L (3.5-5.1); Sodium Level 138 mmol/L (136-145)
[2024-01-20] MEDS: Furosemide 40 MG/4 ML Vial IV (05:23)
[2024-01-20] MEDS: Baclofen 10 MG Tablet PO ×3 (05:23→21:14)
[2024-01-20] MEDS: Acetaminophen 500 MG Tablet 1000 MG PO ×3 (05:23→21:15)
[2024-01-20] MEDS: 0.9% Saline Lock 10 ML Syringe IV (05:24)
[2024-01-20 06:00] VITALS: BMI 26.6
[2024-01-20 06:40] VITALS: O2SAT 95
[2024-01-20] MEDS: Umeclidinium Brm/Vilanterol 62.5-25 mcg Inh 1 PUFF INHALATION (08:57)
[2024-01-20] MEDS: Fluticasone 0.05% 1 SPRAY NASAL.SRY NASAL (08:58)
[2024-01-20] MEDS: Juven (unflavored) Packet 1 PACKET PO ×2 (08:59→17:08)
[2024-01-20] MEDS: Lidocaine 5% Patch 1 PATCH TOPICAL (08:59)
[2024-01-20] MEDS: Polyethylene Glycol 3350 17 GM PACKET PO (08:59)
[2024-01-20] MEDS: Finasteride 5 MG Tablet PO (09:00)
[2024-01-20] MEDS: Senna/Docusate Sodium 1 Tablet 2 TABLET PO ×2 (09:00→21:27)
[2024-01-20] MEDS: Aspirin 81 MG TAB.CHEW PO (09:00)
[2024-01-20] MEDS: Pantoprazole Sodium 20 MG Tablet PO (09:00)
[2024-01-20] MEDS: Carvedilol 3.125 MG TABLET PO ×2 (09:00→21:31)
[2024-01-20] MEDS: Menthol/Lanolin/Calamine/Znox 113 GM Tube 1 APPLIC TOPICAL ×2 (09:01→21:14)
[2024-01-20 09:11] VITALS: BP 109/46; PULSE 69
[2024-01-20] MEDS: Furosemide 40 MG Tablet PO (13:17)
[2024-01-20 16:00] VITALS: BP 103/55; PULSE 79; RESP 17; TEMP 36.4; O2SAT 96
[2024-01-20] MEDS: Tamsulosin HCl 0.4 MG Capsule PO (17:08)
[2024-01-20] MEDS: Doxepin Hydrochloride 10 MG Capsule PO (21:14)
[2024-01-20] MEDS: Pramipexole Di-HCl 0.5 MG Tablet PO (21:15)
[2024-01-20] MEDS: ROSUVASTATIN CALCIUM 40 MG TABLET PO (21:16)
[2024-01-20 23:01] VITALS: PULSE 75; RESP 20; O2SAT 99
[2024-01-21] MEDS: Furosemide 40 MG Tablet PO ×2 (05:33→12:24)
[2024-01-21] MEDS: Acetaminophen 500 MG Tablet 1000 MG PO ×3 (05:33→23:02)
[2024-01-21 05:34] VITALS: BMI 26.8
[2024-01-21] MEDS: Baclofen 10 MG Tablet PO ×3 (05:34→23:02)
[2024-01-21 06:00] LABS: Anion Gap 4 (5-15); BUN 65 mg/dL (7-18); BUN/Creat Ratio 54.2 RATIO (10-20); Calcium,Total 9.4 mg/dL (8.5-10.1); Chloride 102 mmol/L (98-107); EST Glomerular Filtration Rate 62 mL/min (>60); Est Glom Filt Rate - Afr Amer 75 mL/min (>60); Glucose 154 mg/dL (74-106); Potassium 3.8 mmol/L (3.5-5.1); Sodium Level 139 mmol/L (136-145)
[2024-01-21 08:00] VITALS: BP 99/62; PULSE 64
[2024-01-21] MEDS: Umeclidinium Brm/Vilanterol 62.5-25 mcg Inh 1 PUFF INHALATION (08:02)
[2024-01-21] MEDS: Carvedilol 3.125 MG TABLET PO ×2 (08:02→23:01)
[2024-01-21] MEDS: Fluticasone 0.05% 1 SPRAY NASAL.SRY NASAL (08:02)
[2024-01-21] MEDS: Aspirin 81 MG TAB.CHEW PO (08:02)
[2024-01-21] MEDS: Menthol/Lanolin/Calamine/Znox 113 GM Tube 1 APPLIC TOPICAL ×2 (08:03→23:03)
[2024-01-21] MEDS: Pantoprazole Sodium 20 MG Tablet PO (08:03)
[2024-01-21] MEDS: Finasteride 5 MG Tablet PO (08:03)
[2024-01-21] MEDS: Polyethylene Glycol 3350 17 GM PACKET PO (08:04)
[2024-01-21] MEDS: Juven (unflavored) Packet 1 PACKET PO ×2 (08:04→16:46)
[2024-01-21] MEDS: Lidocaine 5% Patch 1 PATCH TOPICAL (08:04)
[2024-01-21] MEDS: oxyCODONE 5 MG Tablet PO ×2 (08:09→23:02)
[2024-01-21] MEDS: Senna/Docusate Sodium 1 Tablet 2 TABLET PO ×2 (08:09→23:02)
[2024-01-21] MEDS: 0.9% Saline Lock 10 ML Syringe IV ×2 (12:27→23:13)
--- NOTE | 2024-01-21 13:19 | WOUNDNOTE ---
wound photo: left foot
[2024-01-21 13:36] VITALS: BP 102/58; PULSE 72; RESP 18; TEMP 36.3; O2SAT 97
--- NOTE | 2024-01-21 14:15 | CASEMGMT ---
Social Work BIMS () and PHQ-2 () completed for MDS assessment. Grace Haynes MSW DIGITAL ENGINEER
[2024-01-21] MEDS: Tamsulosin HCl 0.4 MG Capsule PO (16:46)
[2024-01-21 22:00] VITALS: PULSE 67; O2SAT 95
[2024-01-21] MEDS: ROSUVASTATIN CALCIUM 40 MG TABLET PO (23:01)
[2024-01-21] MEDS: Pramipexole Di-HCl 0.5 MG Tablet PO (23:02)
[2024-01-21] MEDS: Doxepin Hydrochloride 10 MG Capsule PO (23:02)
[2024-01-22 02:40] VITALS: BP 112/65; PULSE 82; RESP 18; O2SAT 92
--- NOTE | 2024-01-22 03:05 | NURSING ---
Addendum entered by Althea Jordan 01/22/24 06:31: updated in person when she came to garbage pick up man pt @ 0600. Original Note: Pt's alarm sounding, this nurse along with 2 field map technician rushed into pt's room to find pt on the floor with his back up against his recliner chair. When asked what pt was attempting to do he stated he slid out of the chair and could not recall whether he was awake or asleep, his legs were not elevated at the time of fall. Pt denied hitting his head and denies any new pain/discomfort. Vitals taken and within normal limits. O2 was off of pt when he was found on the floor, O2 immediately placed back on pt. Pt was assisted x3 assist back to recliner chair. No injuries observed at this time. This nurse encouraged pt to keep legs elevated while in recliner for safety and remains in this position at this time. Fall Investigation Worksheet completed and [employer] notified at this time. Family to be notified when picks up pt at 0600 and written communication left for Dr. Stewart regarding non-injury fall.
[2024-01-22 04:45] VITALS: PULSE 82; O2SAT 92
[2024-01-22] MEDS: Acetaminophen 500 MG Tablet 1000 MG PO (05:17)
[2024-01-22] MEDS: Baclofen 10 MG Tablet PO (05:17)
[2024-01-22 05:56] VITALS: BMI 26.8
--- NOTE | 2024-01-22 06:18 | NURSING ---
Pt left floor at 0605 accompanied by and daughter via w/c with INHALATION THERAPY AIDE.
== END 2024-01-22 06:05 | disposition short-term general hospital (02) | DRG 559 ==
PROVIDERS: Admitting Provider Family Medicine Geriatric Medicine; PCP Internal Medicine; Referring Provider Family Medicine Geriatric Medicine; Visit Provider Family Medicine Geriatric Medicine
DX: Z47.81 Encounter for orthopedic aftercare following surgical amputation (principal); J18.9 Pneumonia, unspecified organism; J96.21 Acute and chronic respiratory failure with hypoxia; I50.21 Acute systolic (congestive) heart failure; N17.9 Acute kidney failure, unspecified; J44.0 Chronic obstructive pulmonary disease with (acute) lower respiratory infection; I96 Gangrene, not elsewhere classified; L03.314 Cellulitis of groin; D50.9 Iron deficiency anemia, unspecified; I73.9 Peripheral vascular disease, unspecified; I10 Essential (primary) hypertension; G25.81 Restless legs syndrome; I25.10 Atherosclerotic heart disease of native coronary artery without angina pectoris; J30.9 Allergic rhinitis, unspecified; E78.5 Hyperlipidemia, unspecified; K21.9 Gastro-esophageal reflux disease without esophagitis; Z89.422 Acquired absence of other left toe(s); F41.9 Anxiety disorder, unspecified; Z95.2 Presence of prosthetic heart valve; Z87.891 Personal history of nicotine dependence; Z79.01 Long term (current) use of anticoagulants; Z95.828 Presence of other vascular implants and grafts; Z79.899 Other long term (current) drug therapy; G47.00 Insomnia, unspecified; Z23 Encounter for immunization
CPT/HCPCS: 36415; 71046; 80048; 80053; 81001; 83880; 85014; 85018; 85025; 87086; 87811; 90480; 92507; 92523; 97110; 97116; 97129; 97130; 97162; 97166; 97530; 97535; 97802; 91322; A4216; J1940

== ENCOUNTER → 2024-01-08 | Outpatient (CLI) | payer MEDICARE, SELFPAY ==
--- NOTE | 2024-01-08 07:21 | CT_ITS ---
STUDY: CTA CHEST REASON FOR EXAM: Male, 78 years old. R/O PE RADIATION DOSAGE (If Supplied By Facility): CTDIvol = ( 14.76 ) mGy, DLP = ( 549.60 ) mGycm TECHNIQUE: The examination was performed with the intravenous administration of IV 75mL Isovue-370. Post-processing of the angiographic images was performed, with multiplanar reformation and 3D reconstruction. Individualized dose optimization techniques were used for this CT. COMPARISON: Comparison is made with prior chest radiograph dated January 06, 2024. FINDINGS: Normal enhancement of the main pulmonary artery and right and left pulmonary arteries. Normal enhancement of the bilateral peripheral pulmonary arteries. There is no demonstrated pulmonary embolism. There is atherosclerotic calcification of the aortic arch with tortuosity. Is evidence of aortic valve replacement. There is no demonstrated aortic dissection. There are calcifications of the coronary arteries. Normal mediastinum. Normal hilar regions. Normal visualized trachea and bronchi. Hyperinflation. Emphysematous changes with evidence of scarring in both lungs worse in the anterior aspect of the upper lobes as well as at the right lung base and right middle lobe. No focal consolidation is seen. Normal pleura. Normal chest wall structures. There are degenerative changes of thoracic spine. Loss of height of the mid dorsal vertebrae. Normal visualized upper abdomen. CT/CTA Chest W/WO Contrast IMPRESSION: No evidence of pulmonary embolism. Hyperinflation and COPD with evidence of a bilateral pulmonary scarring. Electronically Signed: Marcus Weeks MD at 9:11 EDT ,
== END | disposition home or self-care (01) ==
PROVIDERS: PCP Internal Medicine; Referring Provider Family Medicine Geriatric Medicine; Visit Provider Family Medicine Geriatric Medicine
DX: J44.9 Chronic obstructive pulmonary disease, unspecified (principal); I25.10 Atherosclerotic heart disease of native coronary artery without angina pectoris; I70.0 Atherosclerosis of aorta
CPT/HCPCS: 71275; Q9967